=== PATIENT | female | born 1950 | race Caucasian/White ===

== ENCOUNTER → 2017-10-14 | Outpatient (CLI) | payer MEDICARE | END | disposition home or self-care (01) | LOC: RAH 15:52 | PROVIDERS: ATTEND Internal Medicine | DX: M25.552 Pain in left hip (principal) | CPT/HCPCS: 73502 ==

== ENCOUNTER → 2018-08-24 | Outpatient (CLI) | payer MEDICARE | END | disposition home or self-care (01) | LOC: RAH 15:49 | PROVIDERS: ATTEND Physical Medicine & Rehabilitation | DX: M17.11 Unilateral primary osteoarthritis, right knee (principal) | CPT/HCPCS: 73560 ==

== ENCOUNTER → 2018-11-21 | Outpatient (CLI) | payer MEDICARE | END | disposition home or self-care (01) | LOC: RAH 13:01 | PROVIDERS: ATTEND Internal Medicine | DX: N60.01 Solitary cyst of right breast (principal) | CPT/HCPCS: 76641; 77066 ==

== ENCOUNTER → 2019-11-01 | Outpatient (CLI) | payer MEDICARE | END | disposition home or self-care (01) | LOC: RAH 14:15 | PROVIDERS: ATTEND Internal Medicine | DX: N60.01 Solitary cyst of right breast (principal); R92.8 Other abnormal and inconclusive findings on diagnostic imaging of breast | CPT/HCPCS: 76641; 77066 ==

== ENCOUNTER → 2020-10-02 | Outpatient (CLI) | payer MEDICARE | END | disposition home or self-care (01) | LOC: RAH 15:34 | PROVIDERS: ATTEND Physical Medicine & Rehabilitation | DX: M51.16 Intervertebral disc disorders with radiculopathy, lumbar region (principal); M48.061 Spinal stenosis, lumbar region without neurogenic claudication; M85.88 Other specified disorders of bone density and structure, other site | CPT/HCPCS: 72110 ==

== ENCOUNTER → 2020-12-18 | Outpatient (CLI) | payer MEDICARE | END | disposition home or self-care (01) | LOC: RAH 13:19 | PROVIDERS: ATTEND Physical Medicine & Rehabilitation | DX: M51.16 Intervertebral disc disorders with radiculopathy, lumbar region (principal); M48.061 Spinal stenosis, lumbar region without neurogenic claudication; M51.35 Other intervertebral disc degeneration, thoracolumbar region; M71.38 Other bursal cyst, other site | CPT/HCPCS: 72148 ==

== ENCOUNTER → 2021-06-22 | Outpatient (CLI) | payer MEDICARE | END | disposition home or self-care (01) | LOC: RAH 13:18 | PROVIDERS: ATTEND Physical Medicine & Rehabilitation | DX: S72.491A Other fracture of lower end of right femur, initial encounter for closed fracture (principal); S82.291A Other fracture of shaft of right tibia, initial encounter for closed fracture; S83.511A Sprain of anterior cruciate ligament of right knee, initial encounter; S83.521A Sprain of posterior cruciate ligament of right knee, initial encounter; M25.461 Effusion, right knee; X58.XXXA Exposure to other specified factors, initial encounter; Y93.89 Activity, other specified; Y92.89 Other specified places as the place of occurrence of the external cause; Y99.8 Other external cause status | CPT/HCPCS: 73721 ==

== ENCOUNTER → 2022-01-06 | Outpatient (CLI) | payer MEDICARE | END | disposition home or self-care (01) | LOC: RAH 14:08 | PROVIDERS: ATTEND Internal Medicine | DX: N60.01 Solitary cyst of right breast (principal); E66.3 Overweight; Z68.26 Body mass index [BMI] 26.0-26.9, adult; M47.815 Spondylosis without myelopathy or radiculopathy, thoracolumbar region | CPT/HCPCS: 71046; 76641; 77066 ==

== ENCOUNTER → 2023-02-09 | Outpatient (CLI) | payer MEDICARE | END | disposition home or self-care (01) | LOC: RAH 14:20 | PROVIDERS: ATTEND Internal Medicine | DX: N60.01 Solitary cyst of right breast (principal) | CPT/HCPCS: 77066 ==

== ENCOUNTER → 2023-10-14 | Outpatient (CLI) | payer MEDICARE, OTHER ==
[2023-10-14] MEDS: REGADENOSON 0.4 MG/5 ML PF SYG IVP SCH (12:17)
== END | disposition home or self-care (01) ==
LOC: RAH 10:00
PROVIDERS: ATTEND Internal Medicine Cardiovascular Disease
DX: R07.9 Chest pain, unspecified (principal)
CPT/HCPCS: 78452; 96374; 93017; J2785; A9500 ×2

== ENCOUNTER 2023-12-10 10:59 | Emergency (ER) | payer MEDICARE, OTHER ==
[~2023-12-10] VITALS: Ht 157.5 cm; Wt 58.1 kg
[2023-12-10] MEDS: TRIAMCINOLONE ACETONIDE 40 MG/ML 1ML VIAL SQ ONE (12:30)
[2023-12-10] MEDS: ORPHENADRINE 60MG/2ML IM ONE (12:46)
[2023-12-10] MEDS: KETOROLAC 15MG/ML VIAL (15MG/ML) IM ONE (12:46)
[2023-12-10] MEDS ORDERED: ACET-66 PO (13:35)
[2023-12-10 14:16] VITALS: BP 155/71; PULSE 69; RESP 14; O2SAT 95
== END 2023-12-10 14:17 | disposition home or self-care (01) ==
LOC: EDH 10:59
DX: G89.29 Other chronic pain (principal); M54.50 Low back pain, unspecified; J45.909 Unspecified asthma, uncomplicated; F32.A Depression, unspecified; F41.9 Anxiety disorder, unspecified; Z88.0 Allergy status to penicillin; Z88.8 Allergy status to other drugs, medicaments and biological substances; Z90.710 Acquired absence of both cervix and uterus
CPT/HCPCS: 99284; 72100; 96372 ×3; J3301; J1885; J2360

== ENCOUNTER → 2024-11-28 | Outpatient (CLI) | payer MEDICARE ==
[~2024-11-28] MED LIST: ACET-66 PO
== END | disposition home or self-care (01) ==
LOC: RAH 14:10
PROVIDERS: ATTEND Family Medicine
DX: Z12.31 Encounter for screening mammogram for malignant neoplasm of breast (principal)
CPT/HCPCS: 77067

== ENCOUNTER 2024-12-21 16:54 | Inpatient (IN) | payer MEDICARE ==
[~2024-12-21] VITALS: Ht 154.9 cm; Wt 73.8 kg
[~2024-12-21 16:54] MED LIST changes: -ACET-66 PO; +CALC-911 PO; +CYCL-309 PO; +ERGO500093 PO; +ESTR0.5T2 PO; +GABA-529 PO; +LACT1CAP80 PO; +LORA0.5T83 PO; +METH8TAB6 PO; +MULT-1203 PO; +PRAV40TA62 PO; +PROP20TA7 PO; +SERT-440 PO; +TOLT4CAP27 PO; +[UNRECOGNIZED DRUG - CODE] PO
--- NOTE | 2024-12-21 17:04 | ERN ---
ED Note History of Present Illness Stated Complaint: VOMITING BLOOD X1, WEAKNESS, DIZZINESS Chief Complaint: Hematemesis/Vomiting Blood Time Seen by MD: 16:57 Dictation: PATIENT IS A 74-YEAR-OLD FEMALE COME TO THE EMERGENCY ROOM VIA EMS WITH COMPLAINTS OF COFFEE-GROUNDS EMESIS AND THEN HAD A SYNCOPAL EPISODE AFTER SHE VOMITED. SHE IS CURRENTLY ALERT AND ORIENTED X4 SPEECH IS CLEAR. SHE DOES HAVE DRIED COFFEE-GROUND COLORED EMESIS ON HER CHIN. SHE DENIES ANY ABDOMINAL PAIN. NO CHEST PAIN NO BACK PAIN. PER EMS SHE HAD A LOW BLOOD PRESSURE OF 75/40 ON SITE WAS GIVEN 250 OF NORMAL SALINE, NOW Allergies: Coded Allergies: amoxicillin (Unverified Allergy, Mild, rash, 10/14/23) neomycin (Unverified Allergy, Mild, rash, 10/14/23) thimerosal (Unverified Allergy, Mild, rash, 10/14/23) bacitracin (Unverified Allergy, Unknown, rash, 10/14/23) Uncoded Allergies: NEOSPORINS (Allergy, Mild, rash, 10/14/23) POLYSPORINS (Allergy, Mild, rash, 10/14/23) Home Meds Reported Medications Gabapentin (Gabapentin) 100 Mg Capsule, 21 CAP PO DAILY for pain for 30 Days, #90 CAP 0 Refills 12/17/24 Lactobacillus Combo No.10 (Probiotic) 20 Billion Cell Capsule, 2 TAB PO DAILY for 30 Days, #30 TAB 0 Refills 12/17/24 Multivitamin (Multi Vitamin Daily) 1 Each Tablet, 1 TAB PO DAILY for 30 Days, #3 0 TAB 0 Refills 12/17/24 Calcium Carbonate/Vitamin D3 (Calcium 1,000 + D3 Caplet) 1,000 Mg-20 Tablet, 1 TAB PO DAILY for 30 Days, #30 TAB 0 Refills 12/17/24 Folic Acid (Folic Acid) 480 Mcg Capsule, 480 MCG PO DAILY, CAP 12/17/24 Estradiol (Estradiol) 0.5 Mg Tablet, 1 TAB PO DAILY for 30 Days, #30 TAB 0 Refills 12/17/24 Propranolol HCl (Propranolol HCl) 20 Mg Tablet, 20 MG PO DAILY, TAB 12/17/24 Methylprednisolone (Methylprednisolone) 8 Mg Tablet, 1 TAB PO DAILY for 5 Days, #5 TAB 0 Refills 12/17/24 Lorazepam (Ativan) 0.5 Mg Tablet, 0.5 MG PO TID PRN for ANXIETY, TAB 12/17/24 Tolterodine Tartrate (Tolterodine Tartrate ER) 4 Mg Cap.er.24h, 1 CAP PO DAILY for 30 Days, #30 CAP 0 Refills 12/17/24 Cyclobenzaprine HCl (Cyclobenzaprine HCl) 10 Mg Tablet, 1 TAB PO TID for muscle spasms for 10 Days, #30 TAB 0 Refills 12/17/24 Ergocalciferol (Vitamin D2) (Vitamin D2) 1,250 Mcg (18248 Unit) Capsule, 1.25 CAP PO QWEEK for 28 Days, #4 CAP 0 Refills 12/17/24 Pravastatin Sodium (Pravastatin Sodium) 40 Mg Tablet, 1 TAB PO HS for 30 Days, #30 TAB 0 Refills 12/17/24 Sertraline HCl (Sertraline HCl) 100 Mg Tablet, 100 MG PO BID, TAB 12/17/24 Discontinued Scripts Acetaminophen (Acetaminophen) 500 Mg Tablet, 500 MG PO TIDP PRN for PAIN, #15 TAB Prov:CRISTOBAL YAO 12/10/23 Past Medical History Past Medical History: Arthritis, Asthma Additional Past Medical Hx: BACKPAIN Surgical History: Hysterectomy, Tonsillectomy History: Not Applicable RN Note Reviewed/Agreed w/PFSH: Yes Review of System Dictation CONSTITUTIONAL: NEGATIVE EXCEPT FOR HPI HEAD/FACE: NEGATIVE EXCEPT FOR HPI EENT: NEGATIVE EXCEPT FOR HPI RESPIRATORY: NEGATIVE EXCEPT FOR HPI GASTROINTESTINAL/ABDOMINAL: NEGATIVE EXCEPT FOR HPI COFFEE-GROUNDS EMESIS GENITOURINARY: NEGATIVE EXCEPT FOR HPI MUSCULOSKELETAL: NEGATIVE EXCEPT FOR HPI INTEGUMENTARY: NEGATIVE EXCEPT FOR HPI NEUROLOGICAL/PSYCH: NEGATIVE EXCEPT FOR HPI NEAR-SYNCOPE HEMATOLOGIC/LYMPHATIC: NEGATIVE EXCEPT FOR HPI ALL SYSTEMS NEGATIVE, EXCEPT NOTED ABOVE. 13 POINT REVIEW OF SYSTEMS ASSESSED AND ALL NEGATIVE EXCEPT FOR ABOVE. Initial Vital Sign VS Vital Signs Date Time Temp Pulse Resp B/P (MAP) Pulse Ox O2 Delivery O2 Flow Rate FiO2 12/21/24 16:57 99.0 111 20 143/69 99 Room Air 12/21/24 17:29 0 21 Physical Exam Dictation VITAL SIGNS REVIEWED GENERAL APPEARANCE: ALERT, ORIENTED X 3, NO ACUTE DISTRESS, WELL DEVELOPED, NOURISHED. HEAD AND FACE: NON-TRAUMATIC. EYES: PERRL, PINK CONJUNCTIVAS, EYELID NO TRAUMA, ANTERIOR CHAMBER WITH ARCUS SENILIS. EARS: PINNAS INTACT AND NO SIGNS OF TRAUMA OR ERYTHEMA EAR CANALS CLEAR AND NO DISCHARGE TM NO ERYTHEMA NOSE: NO DISCHARGE, NO BLEEDING. OROPHARYNX: MOUTH NORMAL, MUCOUS MEMBRANES PALE PHARYNX CLEAR,NO ERYTHEMA, TONSILS NO EXUDATES, NO ABSCESSES NOTED, MUCOUS MEMBRANE MOIST NECK: SUPPLE, NON-TENDER, NO THYROMEGALY, NO MASSES, NO JVD, NO BRUITS BREAST:DEFERRED CHEST:NO TENDERNESS, NO CREPITUS, NO PARADOXICAL MOVEMENT, NO RETRACTIONS LUNGS:CLEAR, WELL-VENTILATED, SYMMETRIC, NO RALES, NO WHEEZING, NO RHONCHI, NO STRIDOR, GOOD BREATH SOUNDS BILATERALLY HEART: REGULAR RATE, REGULAR RHYTHM, NO MURMUR, NO GALLOPS VASCULAR: NO PERIPHERAL EDEMA, ABDOMEN: SOFT, POSITIVE BOWEL SOUNDS, NONDISTENDED, NO GUARDING, NONTENDER, NO REBOUND, NO MASSES NO HEPATOMEGALY, NO SPLENOMEGALY, NO ENGLE'S SIGN, NO HERNIAS. FOCAL PAIN RECTAL: DEFERRED GENITAL: DEFERRED NEUROLOGICAL: NORMAL SPEECH, MOTOR FUNCTION INTACT, SENSORY FUNCTION INTACT GE NERALIZED BODY WEAKNESS BILATERALLY MUSCULOSKELETAL: NECK NONTENDER, FULL RANGE OF MOTION, BACK NONTENDER, FULL RANGE OF MOTION, EXTREMITIES: NONTENDER, FULL RANGE OF MOTION SKIN: COLOR PINK, DRY, NO TURGOR, NO RASH, NO LACERATIONS, NO ABRASIONS, NO CONTUSIONS. LYMPHATIC: DEFERRED Results (Laboratory/Radiology) Laboratory/Radiology Laboratory Tests Test 12/21/24 17:34 White Blood Count 10.7 K/uL (4.8-10.8) Red Blood Count 2.23 MIL/uL (4.00-5.50) L Hemoglobin 6.7 g/dL (12.0-16.0) *L Hematocrit 20.7 % (36-48) *L Mean Corpuscular Volume 92.8 fL (79-99) Mean Corpuscular Hemoglobin 30.0 pg (27.0-33.0) Mean Corpuscular Hemoglobin Concent 32.4 g/dL (32.0-36.0) Red Cell Distribution Width 17.4 % (11.0-15.5) H Platelet Count 374 K/uL (130-400) Mean Platelet Volume 8.9 fL (7.5-10.5) Immature Granulocyte % (Auto) 0.9 % (0-1) Neutrophils (%) (Auto) 87.4 % (40.0-77.0) H Lymphocytes (%) (Auto) 5.5 % (21.0-51.0) L Monocytes (%) (Auto) 5.0 % (3.0-13.0) Eosinophils (%) (Auto) 0.9 % (0.0-8.0) Basophils (%) (Auto) 0.3 % (0.0-5.0) Neutrophils # (Auto) 9.4 K/uL (1.8-7.7) H Lymphocytes # (Auto) 0.6 K/uL (1.0-4.8) L Monocytes # (Auto) 0.5 K/uL (0.1-1.0) Eosinophils # (Auto) 0.10 K/uL (0.00-0.70) Basophils # (Auto) 0.03 K/uL (0.00-0.20) Absolute Immature Granulocyte (auto 0.10 K/uL (0-1) Nucleated Red Blood Cells 0.0 % (0.0-0.19) Sodium Level 139 mmol/L (136-145) Potassium Level 2.9 mmol/L (3.5-5.1) *L Chloride Level 103 mmol/L (101-111) Carbon Dioxide Level 24 mmol/L (21-32) Blood Urea Nitrogen 34 mg/dL (7-18) H Creatinine 0.6 mg/dL (0.5-1.0) Glomerular Filtration Rate Calc 94 mL/min (>90) Random Glucose 126 mg/dL (70-105) H Total Calcium 8.1 mg/dL (8.5-10.1) L Troponin I High Sensitivity 166 ng/L (4-50) *H Lipase 26 U/L (16-77) Labs Reviewed?: Yes EKG Comment: SINUS RHYTHM WITH A BUNDLE BRANCH BLOCK HEART RATE 75\MEDICAL RECORDS REVIEWED PATIENT HAS A LEFT BUNDLE BRANCH BLOCK 08/20/2024 NO CHANGE ED Course ED Course Orders Procedure Category Date Status Time Type And Screen BBK 12/21/24 In Process 17:01 Cbc With Differential LAB 12/21/24 Complete 17:01 Troponin I High LAB 12/21/24 Complete Sensitivity 17:01 Urinalysis Profile LAB 12/21/24 Logged 17:01 Occult Blood Stool LAB 12/21/24 Logged Single Only 17:01 12 Lead Ekg Tracing- EKG 12/21/24 Logged Technical 17:01 0.9%Nacl 1000ml (Ns PHA 12/21/24 Complete 1000ml) 17:30 Pantoprazole 40mg Inj PHA 12/21/24 Complete (Protonix 40mg Inj 17:30 Lipase LAB 12/21/24 Complete 17:01 Basic Metabolic Panel LAB 12/21/24 Complete 17:01 Rbc - Preoperative BBK 12/21/24 In Process Order 17:26 Rbc-Active Bleeding BBK 12/21/24 In Process 18:55 *Nursing CPOE 12/21/24 Transmitted Communication: 18:55 Octreotide Acetate PHA 12/21/24 Complete (Sandostatin) 19:00 Octreotide Acetate PHA 12/21/24 Complete (Sandostatin) 19:00 Octreotide Acetate PHA 12/21/24 In Process (Sandostatin) 19:30 Edm Admit Bridge Order ADM 12/21/24 Transmitted 19:12 Current Medications Medications (Trade) Dose Ordered Sig/Leighton Route PRN Reason Start Time Stop Time Status Last Admin Dose Admin Octreotide Acetate 1000 mcg/ Dextrose 200 ml @ 10 mls/hr AD IV 12/21/24 19:00 12/21/24 19:10 DC Octreotide Acetate 1250 mcg/ Sodium Chloride 250 ml @ 0 mls/hr PROTOCOL IV 12/21/24 19:30 01/20/25 19:29 Octreotide Acetate (SandoSTATIN) 50 mcg ONCE ONCE IVP 12/21/24 19:00 12/21/24 19:08 DC Pantoprazole Sodium (PROTonix 40MG INJ) 40 mg ONCE ONCE IVP 12/21/24 17:30 12/21/24 17:31 DC 12/21/24 17:21 Sodium Chloride 1,000 ml @ 0 mls/hr ONCE ONCE IV 12/21/24 17:30 12/21/24 17:31 DC 12/21/24 17:21 Vital Signs Date Time Temp Pulse Resp B/P (MAP) Pulse Ox O2 Delivery O2 Flow Rate FiO2 12/21/24 18:25 99.0 107 16 123/39 99 Room Air* 0 21 12/21/24 17:29 99.0 105 16 117/57 98 Room Air* 0 21 12/21/24 16:57 99.0 111 20 143/69 99 Room Air 1910/SPOKE WITH PEE CHO HOSPITALIST REVIEWED LABS EKG ETC. SHE AGREED TO ADMIT. HEART Score Response (Comments) Value EKG: Repolarization changes 1 Age: > 65yrs (+2) 2 Risk Factors: 3+ risk factors (+2) 2 Initial Troponin: >3x Normal Limit (+2) 2 Total 7 Medical Decision Making MDM MDM: DIFFERENTIAL DIAGNOSIS: GI BLEED/ANEMIA/ELECTROLYTE IMBALANCE/DEHYDRATION RATIONALE: TESTS CONSIDERED AND ORDERED SECONDARY TO SHARED DECISION MAKING INCLUDE: LABS, ECG AND RADIOLOGY PREVIOUS OUTSIDE RECORDS REVIEWED: OLD ER VISITS. RISK OF COMPLICATION AND/OR MORBIDITY OR MORTALITY OF PATIENT MANAGEMENT: NONE MEDICATIONS-PER MEDICATION RECONCILIATION NEED FOR HOSPITALIZATION: PATIENT DOES MEET CRITERIA FOR HOSPITALIZATION. MANAGEMENT OF BLEEDING GI CONSULTATION NEED FOR EMERGENCY MAJOR/MINOR SURGERY: NO THERE ARE NO SOCIAL CONCERNS WITH THIS PATIENT. PRESCRIPTION DRUG MANAGEMENT PRESCRIPTIONS WILL INCLUDE SYMPTOMATIC CARE PATIENT'S PRIOR EXTERNAL MEDICAL RECORDS FROM OTHER ER VISITS WERE REVIEWED BY ME INDICATED. PRIOR TESTING AND RESULTS FROM PREVIOUS VISITS WERE REVIEWED. PRIOR TESTS WERE TAKEN INTO ACCOUNT WITH MEDICAL DECISION MAKING AND RESOURCE UTILIZATION, INDEPENDENT HISTORIAN/HISTORIANS WERE USED TO OBTAIN COMPLETE MEDICAL HISTORY. I INDEPENDENTLY INTERPRETED THE TEST THAT WERE PERFORMED, RESULTS WERE REVIEWED BY ME AND CONSIDERED FINDINGS ON RADIOLOGY IF ORDERED. MEDICAL MANAGEMENT AND EXAMINATION INTERPRETATION DISCUSSIONS WERE HAD BY ME WITH OTHER QUALIFIED HEALTHCARE PROFESSIONALS INDICATED FOR THE PATIENT'S CARE. DX & DISP Disposition: Inpatient Decision to Admit Time: 19:16 Departure Impression: Primary Impression: Upper GI bleed Additional Impressions: Severe anemia, Hypokalemia, Dehydration, Elevated troponin level not due myocardial infarction, Hypocalcemia, Hyperglycemia Condition: Stable Referrals: TAMMIE MCLAUGHLIN MD (PCP) Time of Disposition: 19:16 I have reviewed the case, and I agree with, Diagnosis and Plan RAIZA MORRELL NP Dec 21, 2024 17:04
[2024-12-21] MEDS: 0.9%NACL 1000ML 1,000 ML IV ONE (17:21)
[2024-12-21 17:40] LABS: IMMATURE GRANULOCYTE ABSOLUTE 0.10 K/uL (0-1); NUCLEATED RED BLOOD CELLS 0.0 % (0.0-0.19); PLATELET COUNT (AUTO) 374 K/uL (130-400); RED BLOOD CELL COUNT(AUTO) 2.23 MIL/uL (4.00-5.50); RED CELL DISTRIBUTION WIDTH 17.4 % (11.0-15.5); WHITE BLOOD COUNT (AUTO) 10.7 K/uL (4.8-10.8)
[2024-12-21 18:02] LABS: CREATININE 0.6 mg/dL (0.5-1.0); GLOMERULAR FILTR. RATE CALC 94.0 mL/min (>90); GLUCOSE,RANDOM 126.0 mg/dL (70-105); SODIUM SERUM 139.0 mmol/L (136-145); UREA NITROGEN, BLOOD 34.0 mg/dL (7-18)
--- NOTE | 2024-12-21 19:27 | HP ---
[facility] HISTORY AND PHYSICAL Date of Service: Dec 21, 2024 Time of Service: 19:27 Attending/supervising physicians: Dr. Heidy Emanuel and Dr. Sophie Emanuel HISTORY OF PRESENT ILLNESS: Ms. Feldman is a 74 year old female with history of recent GI bleed, multiple myeloma, diabetes mellitus, hypertension, fibromyalgia, arthritis, asthma, chronic back pain, history of UTIs, history of repeated falls, history of protein calorie malnutrition who presented [place] [facility] [place] coffee-ground emesis and then had a syncopal episode after she vomited. Per EMS she had a low blood pressure or 75/40 on site was given 250 of normal saline. She presented to the ED alert and oriented X4 with a clear speech. On arrival the patient was noted to have dried coffee-ground colored emesis on her chin. She denied any abdominal pain, chest pain, or back pain. V/S on ED arrival: 143/69, HR 111 bpm, RR 20 bpm, 99% RA, 99.0F. Labs: Hgb 6.7, Hct 20.7, Rbc 2.23, K 2.9, Troponin 166, BUN 34, Random Glucose 126, Calcium 8.1. Per chart review: CT abdomen and pelvis on 12/17/2024: 1. Thickening of the gastric kaiser predominantly in the body and antrum, suggesting gastritis. 2. Moderate-sized hiatal hernia containing fundus of the stomach. 3. Large amount of stool in the colon. 4. Consider tagged red blood cell scan for evaluation of GI bleed. Echo: LVEF is 55 to 60%. Stage I diastolic dysfunction. RVSP is 39 mmHg. The patient was admitted on 12/17/2024 and was discharged on 12/20/2024 with a diagnosis of GI bleed and general body weakness. During that visit the patient underwent EGD. EGD findings: medium hiatal hernia. Large cratered ulcers in lesser curve of proximal gastric body and in pre-pyloric antrum, both healing well. Patient at high risk for re-bleed. Results given to patient and recommendations to repeat EGD in 5-7 days. The patient was discharged planning for SNF physical deconditioning. Today, I assessed the patient at bedside in room# 307. No family at bedside. The patient was receiving the 1st unit of PRBCs. The patient appeared pale, comfortable, breathing was even, unlabored, in no distress. She reported general body weakness but denied any abdominal pain, chest pain, shortness of breath, any other pain, problem or concern. She reports that she saw a GI doctor as the patient long time ago, but the does not remember the name of the DrAxel nor the reason for the visit. I informed the patient of labs, diagnostics, and plan of care. She verbalized understanding and is in agreement with the plan. Plan and assessment are listed below. REVIEW OF SYSTEMS 12-point ROS reviewed with the patient. All pertinent positives mentioned above. Otherwise negative, noncontributory, non-pertinent. PAST MEDICAL HISTORY: See above PAST SURGICAL HISTORY: Hysterectomy, Tonsillectomy PAST SOCIAL HISTORY: Negative: alcohol, tobacco, and illicit drugs FAMILY HISTORY: Noncontributory Coded Allergies: amoxicillin (Unverified Allergy, Mild, rash, 10/14/23) neomycin (Unverified Allergy, Mild, rash, 10/14/23) thimerosal (Unverified Allergy, Mild, rash, 10/14/23) bacitracin (Unverified Allergy, Unknown, rash, 10/14/23) Uncoded Allergies: NEOSPORINS (Allergy, Mild, rash, 10/14/23) POLYSPORINS (Allergy, Mild, rash, 10/14/23) PHYSICAL EXAM GENERAL APPEARANCE: The patient is awake, alert, and oriented, in no acute cardiopulmonary distress. Appears pale. NEUROLOGICAL: Cranial nerves II-XII grossly intact. Motor is 5/5 in bilateral upper and lower extremities proximal to distal. No sensory deficits. HEENT: Face is symmetric. Pupils are equal and reactive. Extraocular movements are intact. NECK: Supple. No JVD. No thyromegaly. No submental, submandibular, pre- /postauricular, occipital or supraclavicular lymphadenopathy. CHEST: Normal chest expansion. No Telemetry. LUNGS: Absence of any rales, rhonchi or any wheezing. CARDIOVASCULAR: Regular. S1 and S2 normal. No appreciable rubs, murmurs or gallops. ABDOMEN: Soft, nontender, and nondistended. There is no rebound, voluntary guarding, or rigidity. : Deferred. No Mcnair. EXTREMITIES: Non-edematous and not cyanotic. No clubbing. Good capillary refill. SKIN: No skin breakdown. Vital Sign (Last 24 Hours) 12/21/24 19:15 Temp 98.8 Pulse 101 Resp 16 B/P (MAP) 134/42 Pulse Ox 99 O2 Delivery Room Air* O2 Flow Rate 0 FiO2 21 LABS: Laboratory: Test 12/21/24 17:34 Range/Units White Blood Count 10.7 4.8-10.8 K/uL Red Blood Count 2.23 L 4.00-5.50 MIL/uL Hemoglobin 6.7 *L 12.0-16.0 g/dL Hematocrit 20.7 *L 36-48 % Mean Corpuscular Volume 92.8 79-99 fL Mean Corpuscular Hemoglobin 30.0 27.0-33.0 pg Mean Corpuscular Hemoglobin Concent 32.4 32.0-36.0 g/dL Red Cell Distribution Width 17.4 H 11.0-15.5 % Platelet Count 374 130-400 K/uL Mean Platelet Volume 8.9 7.5-10.5 fL Immature Granulocyte % (Auto) 0.9 0-1 % Neutrophils (%) (Auto) 87.4 H 40.0-77.0 % Lymphocytes (%) (Auto) 5.5 L 21.0-51.0 % Monocytes (%) (Auto) 5.0 3.0-13.0 % Eosinophils (%) (Auto) 0.9 0.0-8.0 % Basophils (%) (Auto) 0.3 0.0-5.0 % Neutrophils # (Auto) 9.4 H 1.8-7.7 K/uL Lymphocytes # (Auto) 0.6 L 1.0-4.8 K/uL Monocytes # (Auto) 0.5 0.1-1.0 K/uL Eosinophils # (Auto) 0.10 0.00-0.70 K/uL Basophils # (Auto) 0.03 0.00-0.20 K/uL Absolute Immature Granulocyte (auto 0.10 0-1 K/uL Nucleated Red Blood Cells 0.0 0.0-0.19 % Sodium Level 139 136-145 mmol/L Potassium Level 2.9 *L 3.5-5.1 mmol/L Chloride Level 103 101-111 mmol/L Carbon Dioxide Level 24 21-32 mmol/L Blood Urea Nitrogen 34 H 7-18 mg/dL Creatinine 0.6 0.5-1.0 mg/dL Glomerular Filtration Rate Calc 94 >90 mL/min Random Glucose 126 H 70-105 mg/dL Total Calcium 8.1 L 8.5-10.1 mg/dL Troponin I High Sensitivity 166 *H 4-50 ng/L Lipase 26 16-77 U/L Current Medications Medications (Trade) Dose Ordered Sig/Leighton Route PRN Reason Start Time Stop Time Status Last Admin Dose Admin Acetaminophen (TYLenol 325MG TAB) 650 mg Q6H PRN PO FEVER/MILD PAIN LEVEL 1-3 12/21/24 19:30 01/20/25 19:29 UNV Acetaminophen (TYLenol 650MG SUPPOSITORY) 650 mg Q6H PRN RC FEVER / MILD PAIN 1-3 IF NPO 12/21/24 19:30 01/20/25 19:29 UNV Insulin Human Regular (humuLIN R 100 UNIT/ML 3ML) INSULIN SLIDING SCAL... ACHS SQ 12/21/24 21:00 01/20/25 20:59 UNV Octreotide Acetate 1000 mcg/ Dextrose 200 ml @ 10 mls/hr AD IV 12/21/24 19:00 12/21/24 19:10 DC Octreotide Acetate 1250 mcg/ Sodium Chloride 250 ml @ 0 mls/hr PROTOCOL IV 12/21/24 19:30 01/20/25 19:29 Ondansetron HCl (zoFRAN 4MG INJ) 4 mg Q6H PRN IVP NAUSEA/VOMITING 12/21/24 19:30 01/20/25 19:29 UNV Temazepam (restORIL 15 MG CAP) 15 mg HS PRN PO INSOMNIA/SLEEP 12/21/24 19:30 01/20/25 19:29 UNV DIAGNOSTICS / RADIOLOGY: [ ] ASSESSMENT: Acute GI bleed, recurrent, POA Severe anemia s/p acute blood loss requiring two units of PRBCs. Large cratered ulcers in lesser curve of proximal gastric body and in pre- pyloric antrum, both healing well, per EGD on 12/19/2024 Elevated troponin, POA, rule out ACS Acute dehydration/ketonuria, POA Severe hypokalemia, POA Tachycardia, POA Diabetes mellitus with hyperglycemia LVEF is 55 to 60%. Stage I diastolic dysfunction. RVSP is 39 mmHg, per echo on 12/17/2024 Chronic problem list: Recent GI bleed, multiple myeloma, diabetes mellitus, hyp ertension, fibromyalgia, arthritis, asthma, chronic back pain, history of UTIs, history of repeated falls, history of protein calorie malnutrition PLAN: Admit to medical floor with telemetry monitoring. Obtain stool for occult blood. Continue Protonix 40 mg IV b.i.d.. Continue Sandostatin Sandostatin drip. Monitor for bleed and CBC q.6 hours. Transfuse1 unit of PRBCs p.r.n. hemoglobin less than seven. NPO for now. Consult GI in a.m.. Hematology in a.m. IV gentle hydration. Trend troponins q.6 hours x2. Collect UA. Case management consult for placement back at SNF. P.r.n. medications for: Pain management, fever, nausea, vomiting. Glucometer checks a.c. and HS with insulin regular sliding scale per protocol. Blood pressure checks every 4 hours and as needed. Reconcile home medications once available. Monitor renal and liver function. Monitor electrolytes and treat accordingly. A.m. labs. GI and DVT prophylaxis. Avoid blood thinners due to recurrent GI bleed. Further plan/orders per hospitalization course. ADVANCED CARE PLANNING 1. Which of the following were discussed? Hospice Care - No Therapeutic options - Yes Advance Directives - Yes Other discussions - 2. Discussed with who? The patient 3. Voluntary nature of this service was explained to the patient? Yes 4. Amount of time spent - __ over 35 minutes 5. Reviewed by Physician? (if this service was performed by NPP) Yes ATTESTATION BY PHYSICIAN I have seen and examined the patient. I reviewed the documentation, medical decision making, and treatment plan as noted by the resident provider above. I agree with the findings and plan of care. PRIYA MITCHELL [facility] Dec 21, 2024 19:27
[2024-12-21] MEDS: OCTREOTIDE 1,250 MCG /NS 250ML (DRIP) IV SCH (20:03)
[2024-12-21 23:00] VITALS: BP 143/76; PULSE 107; RESP 20; TEMP 98.5
[2024-12-22] VITALS (7 sets, daily range): BP systolic 120–144; BP diastolic 44–69; PULSE 82–94; RESP 17–20; TEMP 98–98.8; O2SAT 95–100
[2024-12-22] MEDS ORDERED: PoTASSium chloRIDE 20MEQ ER 20 MEQ ERTAB PO PRN
[2024-12-22 00:26] LABS: APPEARANCE,URINE CLEAR (CLEAR); GLUCOSE, URINE (UA) NEGATIVE (NEGATIVE); LEUKOCYTE ESTERASE ,URINE NEGATIVE Leu/uL (NEGATIVE); NITRATE,URINE NEGATIVE (NEGATIVE); OCCULT BLOOD,URINE NEGATIVE (NEGATIVE); SQUAMOUS EPITHELIAL CELL,UR MOD /HPF (0-2)
[2024-12-22] MEDS: 0.9%NACL 1000ML 1,000 ML IV SCH (03:52)
[2024-12-22 08:54] LABS: NUCLEATED RED BLOOD CELLS 0.0 % (0.0-0.19); PLATELET COUNT (AUTO) 333.0 K/uL (130-400); RED BLOOD CELL COUNT(AUTO) 2.94 MIL/uL (4.00-5.50); RED CELL DISTRIBUTION WIDTH 16.4 % (11.0-15.5); WHITE BLOOD COUNT (AUTO) 6.8 K/uL (4.8-10.8)
[2024-12-22 09:18] LABS: ASPARTATE AMINOTRANSFERASE 36.0 U/L (10-37); CREATININE 0.4 mg/dL (0.5-1.0); GLOMERULAR FILTR. RATE CALC 103.0 mL/min (>90); GLUCOSE,RANDOM 115.0 mg/dL (70-105); PHOSPHORUS 1.8 mg/dL (2.5-4.9); SODIUM SERUM 138.0 mmol/L (136-145); TOTAL PROTEIN, SERUM 6.3 g/dL (6.0-8.3); UREA NITROGEN, BLOOD 17.0 mg/dL (7-18)
--- NOTE | 2024-12-22 10:05 | NUR ---
ENTERED PATIENTS ROOM TO ANSWER CALL LIGHT. PATIENT REQUESTED TO SPEAK WITH ME. PATIENT BEGAN STATING, "LAST NIGHT, THEY TOOK ME TO THE SHOWER AND THEY MADE ME STAND NEXT TO A BAR. THEY MADE ME SHOWER AND I WANTED A TOWEL FOR THE FLOOR BUT THEY TOLD ME NO. THEY MADE ME STAND THERE AND I FELT WEAK". WHEN ASKED IF THE PATIENT WAS REFERRING TO THE [facility] OR [facility] THE PATIENT STATED, "WELL YOU SEE, YESTERDAY I WAS AT [facility]". WHEN ASKED TO ELABORATE FURTHER, PATIENT STATED, "I JUST DON'T UNDERSTAND WHY PEOPLE HERE WILL DENY YOU A SHOWER. THEY TOLD ME LAST NIGHT THAT THEY WOULD NEED A TAXI TO TAKE ME TO A SHOWER IN THE OTHER BUILDING". CONFUSION REPORTED TO DR. ROMEO. ORDERS RECEIVED AND ENTERED.
--- NOTE | 2024-12-22 10:22 | EKG ---
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
--- NOTE | 2024-12-22 10:41 | PN ---
[facility] PROGRESS NOTE Date of Service: Dec 22, 2024 Time of Service: 10:29 SUBJECTIVE: [ 74 year old female with history of recent GI bleed, multiple myeloma, diabetes mellitus, hypertension, fibromyalgia, arthritis, asthma, chronic back pain, history of UTIs, history of repeated falls, history of protein calorie malnutrition who [place] [facility] coffee-ground emesis and then had a syncopal episode after she vomited. Per EMS she had a low blood pressure or 75/40 on site was given 250 of normal saline. She presented to the ED alert and oriented X4 with a clear speech. On arrival the patient was noted to have dried coffee-ground colored emesis on her chin. She denied any abdominal pain, chest pain, or back pain. V/S on ED arrival: 143/69, HR 111 bpm, RR 20 bpm, 99% RA, 99.0F. Labs: Hgb 6.7, Hct 20.7, Rbc 2.23, K 2.9, Troponin 166, BUN 34, Random Glucose 126, Calcium 8.1. The patient was admitted on 12/17/2024 and was discharged on 12/20/2024 with a diagnosis of GI bleed and general body weakness. During that visit the patient underwent EGD. EGD findings: medium hiatal hernia. Large cratered ulcers in lesser curve of proximal gastric body and in pre-pyloric antrum, both healing well. Patient at high risk for re-bleed. Results given to patient and recommendations to repeat EGD in 5-7 days. The patient was discharged planning for SNF physical deconditioning. 12/22/24 : Pt seen and exmained along with RN, she is slightly confused , no emesis for now, will get b12 tsh amonia levels. awaiting GI consult REVIEW OF SYSTEMS 12-point ROS reviewed with the patient. All pertinent positives mentioned above. Otherwise negative, noncontributory, non-pertinent. PHYSICAL EXAM GENERAL APPEARANCE: The patient is awake, alert, in no acute cardiopulmonary distress. Appears pale. NEUROLOGICAL: confused , Motor is 5/5 in bilateral upper and lower extremities proximal to distal. No sensory deficits. HEENT: Face is symmetric. Pupils are equal and reactive. Extraocular movements are intact. NECK: Supple. No JVD. No thyromegaly. No submental, submandibular, pre- /postauricular, occipital or supraclavicular lymphadenopathy. CHEST: Normal chest expansion. No Telemetry. LUNGS: Absence of any rales, rhonchi or any wheezing. CARDIOVASCULAR: Regular. S1 and S2 normal. No appreciable rubs, murmurs or gallops. ABDOMEN: Soft, nontender, and nondistended. There is no rebound, voluntary guarding, or rigidity. : Deferred. No Mcnair. EXTREMITIES: Non-edematous and not cyanotic. No clubbing. Good capillary refill. SKIN: No skin breakdown. Vital Signs (last 8hr) Date Time Temp Pulse Resp B/P (MAP) Pulse Ox O2 Delivery O2 Flow Rate FiO2 12/22/24 08:00 98.2 93 19 124/60 100 Room Air 21 12/22/24 03:00 98.4 94 20 120/51 100 Room Air LABS: Laboratory: Test 12/22/24 08:44 12/22/24 05:36 12/21/24 23:44 12/21/24 17:34 Range/Units White Blood Count 6.8 # 4.8-10.8 K/uL Red Blood Count 2.94 #L 4.00-5.50 MIL/uL Hemoglobin 8.7 #L 12.0-16.0 g/dL Hematocrit 26.1 #L 36-48 % Mean Corpuscular Volume 88.8 79-99 fL Mean Corpuscular Hemoglobin 29.6 27.0-33.0 pg Mean Corpuscular Hemoglobin Concent 33.3 32.0-36.0 g/dL Red Cell Distribution Width 16.4 H 11.0-15.5 % Platelet Count 333 130-400 K/uL Mean Platelet Volume 8.5 7.5-10.5 fL Nucleated Red Blood Cells 0.0 0.0-0.19 % Sodium Level 138 136-145 mmol/L Potassium Level 3.1 L 3.5-5.1 mmol/L Chloride Level 108 101-111 mmol/L Carbon Dioxide Level 23 21-32 mmol/L Blood Urea Nitrogen 17 7-18 mg/dL Creatinine 0.4 L 0.5-1.0 mg/dL Glomerular Filtration Rate Calc 103 >90 mL/min Random Glucose 115 H 70-105 mg/dL Total Calcium 7.5 L 8.5-10.1 mg/dL Phosphorus Level 1.8 L 2.5-4.9 mg/dL Magnesium Level 1.90 1.80-2.40 mg/dL Total Bilirubin 0.4 0.2-1.0 mg/dL Aspartate Amino Transf (AST/SGOT) 36 10-37 U/L Alanine Aminotransferase (ALT/SGPT) 34 12-78 U/L Alkaline Phosphatase 76 50-136 U/L Troponin I High Sensitivity 40 4-50 ng/L B-Type Natriuretic Peptide 109 H 0-100 pg/mL Total Protein 6.3 6.0-8.3 g/dL Albumin 2.4 L 3.5-5.0 g/dL Thyroid Stimulating Hormone (TSH) 1.40 0.36-3.74 uIU/mL Whole Blood Glucose 107 70-110 MG/DL Urine Color LIGHT-YELLOW YELLOW Urine Appearance CLEAR CLEAR Urine pH 6.0 5.0-8.0 Urine Specific [place] 1.019 1.001-1.031 Urine Protein NEGATIVE NEGATIVE mg/dL Urine Glucose (UA) NEGATIVE NEGATIVE mg/dL Urine Ketones 10 H NEGATIVE mg/dL Urine Occult Blood NEGATIVE NEGATIVE Urine Nitrate NEGATIVE NEGATIVE Urine Bilirubin NEGATIVE NEGATIVE mg/dL Urine Urobilinogen 0.2 0.2-1.0 mg/dL Urine Leukocyte Esterase NEGATIVE NEGATIVE Cara/uL Urine RBC 0-1 0-1 /HPF Urine WBC 2-5 H 0-1 /HPF Urine Squamous Epithelial Cells MOD 0-2 /HPF Urine Bacteria None None Seen /HPF Immature Granulocyte % (Auto) 0.9 0-1 % Neutrophils (%) (Auto) 87.4 H 40.0-77.0 % Lymphocytes (%) (Auto) 5.5 L 21.0-51.0 % Monocytes (%) (Auto) 5.0 3.0-13.0 % Eosinophils (%) (Auto) 0.9 0.0-8.0 % Basophils (%) (Auto) 0.3 0.0-5.0 % Neutrophils # (Auto) 9.4 H 1.8-7.7 K/uL Lymphocytes # (Auto) 0.6 L 1.0-4.8 K/uL Monocytes # (Auto) 0.5 0.1-1.0 K/uL Eosinophils # (Auto) 0.10 0.00-0.70 K/uL Basophils # (Auto) 0.03 0.00-0.20 K/uL Absolute Immature Granulocyte (auto 0.10 0-1 K/uL Hemoglobin A1c 5.3 4.0-6.0 % Estimated Average Glucose (eAG) 105 70-126 mg/dL Lipase 26 16-77 U/L Current Medications Medications (Trade) Dose Ordered Sig/Leighton Route PRN Reason Start Time Stop Time Status Last Admin Dose Admin Acetaminophen (TYLenol 325MG TAB) 650 mg Q6H PRN PO FEVER/MILD PAIN LEVEL 1-3 12/21/24 19:30 01/20/25 19:29 Acetaminophen (TYLenol 650MG SUPPOSITORY) 650 mg Q6H PRN RC FEVER / MILD PAIN 1-3 IF NPO 12/21/24 19:30 01/20/25 19:29 Atorvastatin Calcium (LIPItor 10MG) 10 mg HS PO 12/22/24 21:00 01/21/25 20:59 Cyclobenzaprine HCl (Cyclobenzaprine HCl) 10 mg TID PO 12/22/24 14:00 01/21/25 13:59 Ergocalciferol (Drisdol) 50,000 unit QWEEK PO 12/29/24 09:00 01/28/25 08:59 Estradiol (Estradiol) 0.5 mg DAILY PO 12/23/24 09:00 01/22/25 08:59 Gabapentin (NEURontin 100 mg CAP) 1 mg DAILY PO 12/23/24 09:00 01/22/25 08:59 UNV Home Med (Home Medication) (Calcium Carbonate/ Vitamin... DAILY PO 12/23/24 09:00 01/22/25 08:59 Home Med (Home Medication) (Folic Acid 480 MCG) DAILY PO 12/23/24 09:00 01/22/25 08:59 Insulin Human Regular (humuLIN R 100 UNIT/ML 3ML) INSULIN SLIDING SCAL... ACHS SQ 12/21/24 21:00 01/20/25 20:59 Lorazepam (AtiVAN) 0.5 mg TID PRN PO ANXIETY 12/22/24 10:00 01/21/25 09:59 Magnesium Sulfate 50 ml @ 0 mls/hr PROTOCOL PRN IV MAGNESIUM PROTOCOL 12/22/24 00:00 01/21/25 00:00 Octreotide Acetate 1000 mcg/ Dextrose 200 ml @ 10 mls/hr AD IV 12/21/24 19:00 12/21/24 19:10 DC Octreotide Acetate 1250 mcg/ Sodium Chloride 250 ml @ 0 mls/hr PROTOCOL IV 12/21/24 19:30 12/21/24 22:46 DC 12/21/24 20:03 5 MLS/HR Octreotide Acetate 1250 mcg/ Sodium Chloride 250 ml @ 0 mls/hr PROTOCOL IV 12/21/24 23:00 01/20/25 22:59 Ondansetron HCl (zoFRAN 4MG INJ) 4 mg Q6H PRN IVP NAUSEA/VOMITING 12/21/24 19:30 01/20/25 19:29 Oxybutynin Chloride (oxyBUTYnin chloRIDE) 5 mg TID PO 12/22/24 14:00 01/21/25 13:59 Pantoprazole Sodium (PROTonix 40MG INJ) 40 mg BID IVP 12/22/24 09:00 01/21/25 08:59 12/22/24 08:15 40 MG Potassium Chloride 100 ml @ 100 mls/hr AD PRN IV POTASSIUM PROTOCOL 12/22/24 00:00 12/22/24 00:06 DC Potassium Chloride 100 ml @ 100 mls/hr AD PRN IV POTASSIUM PROTOCOL 12/22/24 00:30 01/21/25 00:29 12/22/24 05:56 100 MLS/HR Potassium Chloride (K-Dur/Klor-Con 20meq) 20 meq AD PRN PO POTASSIUM PROTOCOL 12/22/24 00:00 01/21/25 00:00 Potassium Chloride (KCl 10% Elixir 20meq/15ml) 20 meq AD PRN PO POTASSIUM PROTOCOL 12/22/24 00:00 01/21/25 00:00 Propranolol HCl (Inderal) 20 mg DAILY PO 12/23/24 09:00 01/22/25 08:59 Sertraline HCl (ZOloft 50 mg tab) 100 mg BID PO 12/22/24 21:00 01/21/25 20:59 Sodium Chloride 1,000 ml @ 50 mls/hr Q20H IV 12/22/24 04:00 01/21/25 03:59 12/22/24 03:52 50 MLS/HR Temazepam (restORIL 15 MG CAP) 15 mg HS PRN PO INSOMNIA/SLEEP 12/21/24 19:30 12/22/24 10:21 DC DIAGNOSTICS / RADIOLOGY: [ ] ASSESSMENT: Acute GI bleed, recurrent, POA Severe anemia s/p acute blood loss requiring two units of PRBCs. Large cratered ulcers in lesser curve of proximal gastric body and in pre- pyloric antrum, both healing well, per EGD on 12/19/2024 Elevated troponin, POA, rule out ACS Acute dehydration/ketonuria, POA Severe hypokalemia, POA Tachycardia, POA Diabetes mellitus with hyperglycemia LVEF is 55 to 60%. Stage I diastolic dysfunction. RVSP is 39 mmHg, per echo on 12/17/2024 Chronic problem list: Recent GI bleed, multiple myeloma, diabetes mellitus, hypertension, fibromyalgia, arthritis, asthma, chronic back pain, history of UTIs, history of repeated falls, history of protein calorie malnutrition PLAN: GI consulted will get tsh b12 ammonia levels Continue Protonix 40 mg IV b.i.d.. Continue Sandostatin Sandostatin drip. Monitor for bleed and CBC q.6 hours. Transfuse1 unit of PRBCs p.r.n. hemoglobin less than seven. NPO for now. Consult GI in a.m.. Hematology in a.m. IV gentle hydration. Trend troponins q.6 hours x2. Collect UA. Case management consult for placement back at SNF. P.r.n. medications for: Pain management, fever, nausea, vomiting. Glucometer checks a.c. and HS with insulin regular sliding scale per protocol. Blood pressure checks every 4 hours and as needed. Reconcile home medications once available. Monitor renal and liver function. Monitor electrolytes and treat accordingly. A.m. labs. GI and DVT prophylaxis. Avoid blood thinners due to recurrent GI bleed. JOSÉ LUIS ROMEO MD Dec 22, 2024 10:41
--- NOTE | 2024-12-22 14:09 | HMCIMG ---
EXAM: CT Head Without IV contrast. CLINICAL HISTORY: ALTERED MENTAL STATUS TECHNIQUE: Axial computed tomography images of the head/brain without intravenous contrast. COMPARISON: None provided. FINDINGS: BRAIN: Age-appropriate changes. Periventricular white matter changes suggesting chronic angiopathy No evidence of acute hemorrhage. No mass lesion. No CT evidence for acute territorial infarct. No midline shift or extra-axial collections. VENTRICLES: No hydrocephalus. ORBITS: The orbits are unremarkable. SINUSES AND MASTOIDS: Chronic sinus disease involving theParanasal sinuses nasal sinuses BONES: No fracture. SOFT TISSUES: Unremarkable. IMPRESSION: No acute intracranial abnormality. /[place]
[2024-12-22] MEDS: CYCLOBENZAPRINE HCL 10 MG TABLET PO SCH (14:37)
[2024-12-22 16:19] LABS: NUCLEATED RED BLOOD CELLS 0.0 % (0.0-0.19); PLATELET COUNT (AUTO) 349.0 K/uL (130-400); RED BLOOD CELL COUNT(AUTO) 2.98 MIL/uL (4.00-5.50); RED CELL DISTRIBUTION WIDTH 16.7 % (11.0-15.5); WHITE BLOOD COUNT (AUTO) 6.8 K/uL (4.8-10.8)
[2024-12-22] MEDS: PoTASSium chl 10% ELIXIR 20MEQ 20 MEQ/15 ML UDCUP PO PRN (17:20)
--- NOTE | 2024-12-22 17:57 | CONS ---
Ms. Feldman is a 74-year-old female with past medical history of multiple myeloma, admitted yesterday with complaints of coffee-ground emesis, syncopal episode. Her hemoglobin was 6 g. Since admission patient has received 2 units of PRBC. Since patient has a history of multiple myeloma, we have been consulted. The patient was admitted on 12/17/2024 and was discharged on 12/20/2024 with a diagnosis of GI bleed.. During that visit the patient underwent EGD. EGD findings: medium hiatal hernia. Large cratered ulcers in lesser curve of proximal gastric body and in pre-pyloric antrum, both healing well. Patient at high risk for re-bleed. Results given to patient and recommendations to repeat EGD in 5-7 days. The patient was discharged planning for SNF physical deconditioning. Patient stated that she was diagnosed with multiple myeloma 12 years ago, she was treated with 4 months of Revlimid. Recently she is not receiving any treatment. She denies any back pain, bone pain. However she has usual arthritis. She follows up with Dr. Guerrero Jackson regularly. Denies any numbness or weakness anywhere. ROS: I have obtain 12 point ROS from the patient, all are negative except as above. Past Medical history: Multiple myeloma. Type 2 diabetes mellitus. Essential hypertension. Osteoarthritis. Fibromyalgia. Bronchial asthma. Chronic back pain. Recent GI bleed. Past surgical histor: Status post tonsillectomy. Status post hysterectomy. Allergies: She is allergic to Neosporin, Polysporin, amoxicillin, bacitracin. Social history: Patient does not smoke or drink. Family history: Reviewed and noncontributory. Medications: I have reviewed her medications list. Physical examination: Patient is lying in bed comfortably, she is not in any distress. HEENT. Head is atraumatic, pupils are reactive to light, extraocular muscles are intact. Mucous membranes are slightly pale. No jaundice. Neck. Supple, no lymphadenopathy. Chest. Good air entry present bilaterally, no wheezing rales or crackles. Heart. S1-S2 regular, no gallop or murmur. Abdomen. Soft, nondistended, nontender, bowel sounds are present. Extremities. No edema. Neurological exam. Patient is alert and oriented x3, no focal neurological deficit. Labs: CBC, chemistry was reviewed. Impression plan: 1. Recurrent GI bleed. 2. Recent diagnosis of gastric ulcer. 3. Multiple myeloma. 4. GERD. 5. Type 2 diabetes mellitus. 6. Essential hypertension. 7. Osteoarthritis. 8. Bronchial asthma. 9. Chronic back pain. Patient received 2 units of PRBC, she had appropriate response to blood transfusion. Continue to monitor H and H, transfuse as needed. Patient will be seen by GI for most likely repeating EGD. Patient will be needing intravenous iron after she is more stable. In addition, workup for myeloma will be done per Dr. Sam after patient is discharged. Vitals/Labs Vital Signs Date Time Temp Pulse Resp B/P (MAP) Pulse Ox O2 Delivery O2 Flow Rate FiO2 12/22/24 16:00 98.2 82 19 126/64 98 Room Air 21 12/22/24 08:15 0 Laboratory Tests 12/22/24 01:39 12/22/24 08:44 12/22/24 16:12 Allergies: Coded Allergies: amoxicillin (Unverified Allergy, Mild, rash, 10/14/23) neomycin (Unverified Allergy, Mild, rash, 10/14/23) thimerosal (Unverified Allergy, Mild, rash, 10/14/23) bacitracin (Unverified Allergy, Unknown, rash, 10/14/23) Uncoded Allergies: NEOSPORINS (Allergy, Mild, rash, 10/14/23) POLYSPORINS (Allergy, Mild, rash, 10/14/23) Medications Current Medications Sodium Chloride 1,000 ml @ 0 mls/hr ONCE ONCE IV Last administered on 12/21/24at 17:21; Start 12/21/24 at 17:30; Stop 12/21/24 at 17:31; Status DC Pantoprazole Sodium 40 mg ONCE ONCE IVP Last administered on 12/21/24at 17:21; Start 12/21/24 at 17:30; Stop 12/21/24 at 17:31; Status DC Octreotide Acetate 50 mcg ONCE ONCE IVP Last administered on 12/21/24at 20:06; Start 12/21/24 at 19:00; Stop 12/21/24 at 19:08; Status DC Octreotide Acetate 1000 mcg/ Dextrose 200 ml @ 10 mls/hr AD IV; Start 12/21/24 at 19:00; Stop 12/21/24 at 19:10; Status DC Octreotide Acetate 1250 mcg/ Sodium Chloride 250 ml @ 0 mls/hr PROTOCOL IV Last administered on 12/21/24at 20:03; Start 12/21/24 at 19:30; Stop 12/21/24 at 22:46; Status DC Acetaminophen 650 mg Q6H PRN PO; Start 12/21/24 at 19:30; Stop 01/20/25 at 19:29 Acetaminophen 650 mg Q6H PRN RC; Start 12/21/24 at 19:30; Stop 01/20/25 at 19:29 Temazepam 15 mg HS PRN PO; Start 12/21/24 at 19:30; Stop 12/22/24 at 10:21; Status DC Ondansetron HCl 4 mg Q6H PRN IVP; Start 12/21/24 at 19:30; Stop 01/20/25 at 19:29 Insulin Human Regular INSULIN SLIDING SCAL... ACHS SQ; Start 12/21/24 at 21:00; Stop 01/20/25 at 20:59 Diazepam 5 mg ONCE ONCE IVP Last administered on 12/21/24at 21:16; Start 12/21/24 at 21:00; Stop 12/21/24 at 21:01; Status DC Pantoprazole Sodium 40 mg BID IVP Last administered on 12/22/24at 08:15; Start 12/22/24 at 09:00; Stop 01/21/25 at 08:59 Octreotide Acetate 1250 mcg/ Sodium Chloride 250 ml @ 0 mls/hr PROTOCOL IV; Start 12/21/24 at 23:00; Stop 01/20/25 at 22:59 Potassium Chloride 100 ml @ 100 mls/hr AD PRN IV; Start 12/22/24 at 00:00; Stop 12/22/24 at 00:06; Status DC Potassium Chloride 20 meq AD PRN PO Last administered on 12/22/24at 17:20; Start 12/22/24 at 00:00; Stop 01/21/25 at 00:00 Potassium Chloride 20 meq AD PRN PO; Start 12/22/24 at 00:00; Stop 01/21/25 at 00:00 Magnesium Sulfate 50 ml @ 0 mls/hr PROTOCOL PRN IV; Start 12/22/24 at 00:00; Stop 01/21/25 at 00:00 Potassium Chloride 100 ml @ 100 mls/hr AD PRN IV Last administered on 12/22/24at 05:56; Start 12/22/24 at 00:30; Stop 01/21/25 at 00:29 Sodium Chloride 1,000 ml @ 50 mls/hr Q20H IV Last administered on 12/22/24at 03:52; Start 12/22/24 at 04:00; Stop 01/21/25 at 03:59 Cyclobenzaprine HCl 10 mg TID PO Last administered on 12/22/24at 14:37; Start 12/22/24 at 14:00; Stop 01/21/25 at 13:59 Ergocalciferol 50,000 unit QWEEK PO; Start 12/29/24 at 09:00; Stop 01/28/25 at 08:59 Estradiol 0.5 mg DAILY PO; Start 12/23/24 at 09:00; Stop 01/22/25 at 08:59 Gabapentin 1 mg DAILY PO; Start 12/23/24 at 09:00; Stop 12/22/24 at 14:42; Status DC Lorazepam 0.5 mg TID PRN PO; Start 12/22/24 at 10:00; Stop 01/21/25 at 09:59 Propranolol HCl 20 mg DAILY PO; Start 12/23/24 at 09:00; Stop 01/22/25 at 08:59 Home Med (Calcium Carbonate/ Vitamin... DAILY PO; Start 12/23/24 at 09:00; Stop 01/22/25 at 08:59 Home Med (Folic Acid 480 MCG) DAILY PO; Start 12/23/24 at 09:00; Stop 01/22/25 at 08:59 Atorvastatin Calcium 10 mg HS PO; Start 12/22/24 at 21:00; Stop 01/21/25 at 20:59 Sertraline HCl 100 mg BID PO; Start 12/22/24 at 21:00; Stop 01/21/25 at 20:59 Oxybutynin Chloride 5 mg TID PO Last administered on 12/22/24at 14:37; Start 12/22/24 at 14:00; Stop 01/21/25 at 13:59 LIZZY THOMAS MD Dec 22, 2024 17:57
--- NOTE | 2024-12-22 19:20 | NUR ---
cm note met with pt and was staying at [facility] prior to admit, but not sure that she wants to return. will think about it. would like to return home. pt states uses 2 wheeled walker to walk, but weaker. lives alone at home usually.needs assist with adls/ she has friend jose young in [place] [phone] that she is working on POA for her. Addendum: 12/22/24 at 1925 by CRISTHIAN CASTLE CM Amended: Links added.
[2024-12-22 22:12] LABS: NUCLEATED RED BLOOD CELLS 0.0 % (0.0-0.19); PLATELET COUNT (AUTO) 376.0 K/uL (130-400); RED BLOOD CELL COUNT(AUTO) 3.05 MIL/uL (4.00-5.50); RED CELL DISTRIBUTION WIDTH 17.0 % (11.0-15.5); WHITE BLOOD COUNT (AUTO) 6.7 K/uL (4.8-10.8)
[2024-12-23] VITALS (9 sets, daily range): BP systolic 131–136; BP diastolic 61–80; PULSE 78–87; RESP 16–20; TEMP 97.7–98.9; O2SAT 95–97
[2024-12-23 06:20] LABS: NUCLEATED RED BLOOD CELLS 0.0 % (0.0-0.19); PLATELET COUNT (AUTO) 345.0 K/uL (130-400); RED BLOOD CELL COUNT(AUTO) 3.03 MIL/uL (4.00-5.50); RED CELL DISTRIBUTION WIDTH 16.8 % (11.0-15.5); WHITE BLOOD COUNT (AUTO) 6.7 K/uL (4.8-10.8)
[2024-12-23 06:39] LABS: ASPARTATE AMINOTRANSFERASE 33.0 U/L (10-37); CREATININE 0.4 mg/dL (0.5-1.0); GLOMERULAR FILTR. RATE CALC 103.0 mL/min (>90); GLUCOSE,RANDOM 105.0 mg/dL (70-105); SODIUM SERUM 138.0 mmol/L (136-145); TOTAL PROTEIN, SERUM 6.7 g/dL (6.0-8.3); UREA NITROGEN, BLOOD 8.0 mg/dL (7-18)
[2024-12-23] MEDS: ESTRADIOL 0.5 MG TABLET PO SCH (08:49)
[2024-12-23] MEDS: PROPRANOLOL HCL 20 MG TAB PO SCH (08:49)
[2024-12-23] MEDS: CALCIUM CARBONATE PO SCH (08:50)
[2024-12-23] MEDS: VITAMIN D3 PO SCH (08:50)
[2024-12-23] MEDS: FOLIC ACID PO SCH (08:50)
[2024-12-23 10:13] LABS: % IRON SATURATION 5.5 % (22-44); IRON, SERUM 18.0 mcg/dL (50-170)
--- NOTE | 2024-12-23 10:18 | PN ---
Patient does not have any complaints. No more coffee-ground emesis. Denies abdominal pain. No bowel movement. Discussed with RN, no acute events overnight. Physical examination: Patient is lying in bed comfortably, she is not in any distress. HEENT. Head is atraumatic, pupils are reactive to light, extraocular muscles are intact. Mucous membranes are slightly pale. No jaundice. Neck. Supple, no lymphadenopathy. Chest. Good air entry present bilaterally, no wheezing rales or crackles. Heart. S1-S2 regular, no gallop or murmur. Abdomen. Soft, nondistended, nontender, bowel sounds are present. Extremities. No edema. Neurological exam. Patient is alert and oriented x3, no focal neurological deficit. Labs: CBC, chemistry was reviewed. Impression plan: 1. Recurrent GI bleed. 2. Recent diagnosis of gastric ulcer. 3. Multiple myeloma. 4. GERD. 5. Type 2 diabetes mellitus. 6. Essential hypertension. 7. Osteoarthritis. 8. Bronchial asthma. 9. Chronic back pain. Patient received 2 units of PRBC, her hemoglobin is better and stable. GI consultation is pending. Management of GI bleed per primary and GI service. Follow up with Dr. Parson and Manuel after discharge for surveillance of multiple myeloma. Vitals/Labs Vital Signs Date Time Temp Pulse Resp B/P (MAP) Pulse Ox O2 Delivery O2 Flow Rate FiO2 12/23/24 08:26 97.7 78 16 132/78 95 Room Air 12/23/24 04:00 21 12/22/24 19:20 0 Laboratory Tests 12/22/24 16:12 12/22/24 22:09 12/23/24 06:01 Medications Current Medications Sodium Chloride 1,000 ml @ 0 mls/hr ONCE ONCE IV Last administered on 12/21/24at 17:21; Start 12/21/24 at 17:30; Stop 12/21/24 at 17:31; Status DC Pantoprazole Sodium 40 mg ONCE ONCE IVP Last administered on 12/21/24at 17:21; Start 12/21/24 at 17:30; Stop 12/21/24 at 17:31; Status DC Octreotide Acetate 50 mcg ONCE ONCE IVP Last administered on 12/21/24at 20:06; Start 12/21/24 at 19:00; Stop 12/21/24 at 19:08; Status DC Octreotide Acetate 1000 mcg/ Dextrose 200 ml @ 10 mls/hr AD IV; Start 12/21/24 at 19:00; Stop 12/21/24 at 19:10; Status DC Octreotide Acetate 1250 mcg/ Sodium Chloride 250 ml @ 0 mls/hr PROTOCOL IV Last administered on 12/21/24at 20:03; Start 12/21/24 at 19:30; Stop 12/21/24 at 22:46; Status DC Acetaminophen 650 mg Q6H PRN PO; Start 12/21/24 at 19:30; Stop 01/20/25 at 19:29 Acetaminophen 650 mg Q6H PRN RC; Start 12/21/24 at 19:30; Stop 01/20/25 at 19:29 Temazepam 15 mg HS PRN PO; Start 12/21/24 at 19:30; Stop 12/22/24 at 10:21; Status DC Ondansetron HCl 4 mg Q6H PRN IVP; Start 12/21/24 at 19:30; Stop 01/20/25 at 19:29 Insulin Human Regular INSULIN SLIDING SCAL... ACHS SQ; Start 12/21/24 at 21:00; Stop 01/20/25 at 20:59 Diazepam 5 mg ONCE ONCE IVP Last administered on 12/21/24at 21:16; Start 12/21/24 at 21:00; Stop 12/21/24 at 21:01; Status DC Pantoprazole Sodium 40 mg BID IVP Last administered on 12/23/24at 08:49; Start 12/22/24 at 09:00; Stop 01/21/25 at 08:59 Octreotide Acetate 1250 mcg/ Sodium Chloride 250 ml @ 0 mls/hr PROTOCOL IV; Start 12/21/24 at 23:00; Stop 01/20/25 at 22:59 Potassium Chloride 100 ml @ 100 mls/hr AD PRN IV; Start 12/22/24 at 00:00; Stop 12/22/24 at 00:06; Status DC Potassium Chloride 20 meq AD PRN PO Last administered on 12/23/24at 08:50; Start 12/22/24 at 00:00; Stop 01/21/25 at 00:00 Potassium Chloride 20 meq AD PRN PO; Start 12/22/24 at 00:00; Stop 01/21/25 at 00:00 Magnesium Sulfate 50 ml @ 0 mls/hr PROTOCOL PRN IV; Start 12/22/24 at 00:00; Stop 01/21/25 at 00:00 Potassium Chloride 100 ml @ 100 mls/hr AD PRN IV Last administered on 12/23/24at 07:11; Start 12/22/24 at 00:30; Stop 01/21/25 at 00:29 Sodium Chloride 1,000 ml @ 50 mls/hr Q20H IV Last administered on 12/22/24at 03:52; Start 12/22/24 at 04:00; Stop 01/21/25 at 03:59 Cyclobenzaprine HCl 10 mg TID PO Last administered on 12/23/24at 08:49; Start 12/22/24 at 14:00; Stop 01/21/25 at 13:59 Ergocalciferol 50,000 unit QWEEK PO; Start 12/29/24 at 09:00; Stop 01/28/25 at 08:59 Estradiol 0.5 mg DAILY PO Last administered on 12/23/24at 08:49; Start 12/23/24 at 09:00; Stop 01/22/25 at 08:59 Gabapentin 1 mg DAILY PO; Start 12/23/24 at 09:00; Stop 12/22/24 at 14:42; Status DC Lorazepam 0.5 mg TID PRN PO; Start 12/22/24 at 10:00; Stop 01/21/25 at 09:59 Propranolol HCl 20 mg DAILY PO Last administered on 12/23/24at 08:49; Start 12/23/24 at 09:00; Stop 01/22/25 at 08:59 Home Med (Calcium Carbonate/ Vitamin... DAILY PO; Start 12/23/24 at 09:00; Stop 01/22/25 at 08:59 Home Med (Folic Acid 480 MCG) DAILY PO; Start 12/23/24 at 09:00; Stop 01/22/25 at 08:59 Atorvastatin Calcium 10 mg HS PO Last administered on 12/22/24at 21:12; Start 12/22/24 at 21:00; Stop 01/21/25 at 20:59 Sertraline HCl 100 mg BID PO Last administered on 12/23/24at 08:49; Start 12/22/24 at 21:00; Stop 01/21/25 at 20:59 Oxybutynin Chloride 5 mg TID PO Last administered on 12/23/24at 08:49; Start 12/22/24 at 14:00; Stop 01/21/25 at 13:59 LIZZY THOMAS MD Dec 23, 2024 10:18
[2024-12-23] MEDS ORDERED: COMPOUND IV MISC 1 EACH IVSOLN MISC PRN (12:30)
--- NOTE | 2024-12-23 12:35 | PN ---
[facility] PROGRESS NOTE Date of Service: Dec 23, 2024 Time of Service: 12:30 SUBJECTIVE: [ 74 year old female with history of recent GI bleed, multiple myeloma, diabetes mellitus, hypertension, fibromyalgia, arthritis, asthma, chronic back pain, history of UTIs, history of repeated falls, history of protein calorie malnutrition who presented to [facility] for evaluation coffee-ground emesis and then had a syncopal episode after she vomited. Per EMS she had a low blood pressure or 75/40 on site was given 250 of normal saline. She presented to the ED alert and oriented X4 with a clear speech. On arrival the patient was noted to have dried coffee-ground colored emesis on her chin. She denied any abdominal pain, chest pain, or back pain. V/S on ED arrival: 143/69, HR 111 bpm, RR 20 bpm, 99% RA, 99.0F. Labs: Hgb 6.7, Hct 20.7, Rbc 2.23, K 2.9, Troponin 166, BUN 34, Random Glucose 126, Calcium 8.1. The patient was admitted on 12/17/2024 and was discharged on 12/20/2024 with a diagnosis of GI bleed and general body weakness. During that visit the patient underwent EGD. EGD findings: medium hiatal hernia. Large cratered ulcers in lesser curve of proximal gastric body and in pre-pyloric antrum, both healing well. Patient at high risk for re-bleed. Results given to patient and recommendations to repeat EGD in 5-7 days. The patient was discharged planning for SNF physical deconditioning. 12/22/24 : Pt seen and exmained along with RN, she is slightly confused , no emesis for now, will get b12 tsh amonia levels. awaiting GI consult 12/23/2024. Patient was seen and examined along with RN. Known more confusion noticed today. She is at her baseline mental status. Lab work reviewed. Awaiting GI consultation. Found to have iron-deficiency with transferrin saturation of 5%. Workup including B12 TSH ammonia level and CT head was negative. No signs of bleeding. REVIEW OF SYSTEMS 12-point ROS reviewed with the patient. All pertinent positives mentioned above. Otherwise negative, noncontributory, non-pertinent. PHYSICAL EXAM GENERAL APPEARANCE: The patient is awake, alert, in no acute cardiopulmonary distress. Appears pale. NEUROLOGICAL: confused , Motor is 5/5 in bilateral upper and lower extremities proximal to distal. No sensory deficits. HEENT: Face is symmetric. Pupils are equal and reactive. Extraocular movements are intact. NECK: Supple. No JVD. No thyromegaly. No submental, submandibular, pre- /postauricular, occipital or supraclavicular lymphadenopathy. CHEST: Normal chest expansion. No Telemetry. LUNGS: Absence of any rales, rhonchi or any wheezing. CARDIOVASCULAR: Regular. S1 and S2 normal. No appreciable rubs, murmurs or gallops. ABDOMEN: Soft, nontender, and nondistended. There is no rebound, voluntary guarding, or rigidity. : Deferred. No Mcnair. EXTREMITIES: Non-edematous and not cyanotic. No clubbing. Good capillary refill. SKIN: No skin breakdown. Vital Signs (last 8hr) Date Time Temp Pulse Resp B/P (MAP) Pulse Ox O2 Delivery O2 Flow Rate FiO2 12/23/24 08:49 95 Room Air* 0 21 12/23/24 08:26 97.7 78 16 132/78 95 Room Air LABS: Laboratory: Test 12/23/24 09:25 12/23/24 06:01 12/23/24 05:24 12/22/24 16:11 Range/Units Iron Level 18 L 50-170 mcg/dL Total Iron Binding Capacity 324 250-450 mcg/dL Percent Iron Saturation 5.5 L 22-44 % White Blood Count 6.7 4.8-10.8 K/uL Red Blood Count 3.03 L 4.00-5.50 MIL/uL Hemoglobin 9.0 L 12.0-16.0 g/dL Hematocrit 26.9 L 36-48 % Mean Corpuscular Volume 88.8 79-99 fL Mean Corpuscular Hemoglobin 29.7 27.0-33.0 pg Mean Corpuscular Hemoglobin Concent 33.5 32.0-36.0 g/dL Red Cell Distribution Width 16.8 H 11.0-15.5 % Platelet Count 345 130-400 K/uL Mean Platelet Volume 8.1 7.5-10.5 fL Nucleated Red Blood Cells 0.0 0.0-0.19 % Sodium Level 138 136-145 mmol/L Potassium Level 3.2 L 3.5-5.1 mmol/L Chloride Level 105 101-111 mmol/L Carbon Dioxide Level 21 21-32 mmol/L Blood Urea Nitrogen 8 7-18 mg/dL Creatinine 0.4 L 0.5-1.0 mg/dL Glomerular Filtration Rate Calc 103 >90 mL/min Random Glucose 105 70-105 mg/dL Total Calcium 8.2 L 8.5-10.1 mg/dL Total Bilirubin 0.5 # 0.2-1.0 mg/dL Aspartate Amino Transf (AST/SGOT) 33 10-37 U/L Alanine Aminotransferase (ALT/SGPT) 34 12-78 U/L Alkaline Phosphatase 84 50-136 U/L Total Protein 6.7 6.0-8.3 g/dL Albumin 2.5 L 3.5-5.0 g/dL Whole Blood Glucose 106 70-110 MG/DL Bedside Glucose Comment Notified Nurse Test 12/22/24 10:31 12/22/24 08:44 12/21/24 23:44 12/21/24 17:34 Range/Units Ammonia 19 11-32 umol/L Vitamin B12 Level 857 193-986 pg/mL Thyroid Stimulating Hormone (TSH) 1.07 # 0.36-3.74 uIU/mL Phosphorus Level 1.8 L 2.5-4.9 mg/dL Magnesium Level 1.90 1.80-2.40 mg/dL Troponin I High Sensitivity 40 4-50 ng/L B-Type Natriuretic Peptide 109 H 0-100 pg/mL Urine Color LIGHT-YELLOW YELLOW Urine Appearance CLEAR CLEAR Urine pH 6.0 5.0-8.0 Urine Specific Orla 1.019 1.001-1.031 Urine Protein NEGATIVE NEGATIVE mg/dL Urine Glucose (UA) NEGATIVE NEGATIVE mg/dL Urine Ketones 10 H NEGATIVE mg/dL Urine Occult Blood NEGATIVE NEGATIVE Urine Nitrate NEGATIVE NEGATIVE Urine Bilirubin NEGATIVE NEGATIVE mg/dL Urine Urobilinogen 0.2 0.2-1.0 mg/dL Urine Leukocyte Esterase NEGATIVE NEGATIVE Cara/uL Urine RBC 0-1 0-1 /HPF Urine WBC 2-5 H 0-1 /HPF Urine Squamous Epithelial Cells MOD 0-2 /HPF Urine Bacteria None None Seen /HPF Immature Granulocyte % (Auto) 0.9 0-1 % Neutrophils (%) (Auto) 87.4 H 40.0-77.0 % Lymphocytes (%) (Auto) 5.5 L 21.0-51.0 % Monocytes (%) (Auto) 5.0 3.0-13.0 % Eosinophils (%) (Auto) 0.9 0.0-8.0 % Basophils (%) (Auto) 0.3 0.0-5.0 % Neutrophils # (Auto) 9.4 H 1.8-7.7 K/uL Lymphocytes # (Auto) 0.6 L 1.0-4.8 K/uL Monocytes # (Auto) 0.5 0.1-1.0 K/uL Eosinophils # (Auto) 0.10 0.00-0.70 K/uL Basophils # (Auto) 0.03 0.00-0.20 K/uL Absolute Immature Granulocyte (auto 0.10 0-1 K/uL Hemoglobin A1c 5.3 4.0-6.0 % Estimated Average Glucose (eAG) 105 70-126 mg/dL Lipase 26 16-77 U/L Current Medications Medications (Trade) Dose Ordered Sig/Leighton Route PRN Reason Start Time Stop Time Status Last Admin Dose Admin Acetaminophen (TYLenol 325MG TAB) 650 mg Q6H PRN PO FEVER/MILD PAIN LEVEL 1-3 12/21/24 19:30 01/20/25 19:29 Acetaminophen (TYLenol 650MG SUPPOSITORY) 650 mg Q6H PRN RC FEVER / MILD PAIN 1-3 IF NPO 12/21/24 19:30 01/20/25 19:29 Atorvastatin Calcium (LIPItor 10MG) 10 mg HS PO 12/22/24 21:00 01/21/25 20:59 12/22/24 21:12 10 MG Cyclobenzaprine HCl (Cyclobenzaprine HCl) 10 mg TID PO 12/22/24 14:00 01/21/25 13:59 12/23/24 08:49 10 MG Ergocalciferol (Drisdol) 50,000 unit QWEEK PO 12/29/24 09:00 01/28/25 08:59 Estradiol (Estradiol) 0.5 mg DAILY PO 12/23/24 09:00 01/22/25 08:59 12/23/24 08:49 0.5 MG Gabapentin (NEURontin 100 mg CAP) 1 mg DAILY PO 12/23/24 09:00 12/22/24 14:42 DC Home Med (Home Medication) (Calcium Carbonate/ Vitamin... DAILY PO 12/23/24 09:00 01/22/25 08:59 Home Med (Home Medication) (Folic Acid 480 MCG) DAILY PO 12/23/24 09:00 01/22/25 08:59 Insulin Human Regular (humuLIN R 100 UNIT/ML 3ML) INSULIN SLIDING SCAL... ACHS SQ 12/21/24 21:00 01/20/25 20:59 Lorazepam (AtiVAN) 0.5 mg TID PRN PO ANXIETY 12/22/24 10:00 01/21/25 09:59 Magnesium Sulfate 50 ml @ 0 mls/hr PROTOCOL PRN IV MAGNESIUM PROTOCOL 12/22/24 00:00 01/21/25 00:00 Octreotide Acetate 1000 mcg/ Dextrose 200 ml @ 10 mls/hr AD IV 12/21/24 19:00 12/21/24 19:10 DC Octreotide Acetate 1250 mcg/ Sodium Chloride 250 ml @ 0 mls/hr PROTOCOL IV 12/21/24 19:30 12/21/24 22:46 DC 12/21/24 20:03 5 MLS/HR Octreotide Acetate 1250 mcg/ Sodium Chloride 250 ml @ 0 mls/hr PROTOCOL IV 12/21/24 23:00 01/20/25 22:59 Ondansetron HCl (zoFRAN 4MG INJ) 4 mg Q6H PRN IVP NAUSEA/VOMITING 12/21/24 19:30 01/20/25 19:29 Oxybutynin Chloride (oxyBUTYnin chloRIDE) 5 mg TID PO 12/22/24 14:00 01/21/25 13:59 12/23/24 08:49 5 MG Pantoprazole Sodium (PROTonix 40MG INJ) 40 mg BID IVP 12/22/24 09:00 01/21/25 08:59 12/23/24 08:49 40 MG Potassium Chloride 100 ml @ 100 mls/hr AD PRN IV POTASSIUM PROTOCOL 12/22/24 00:00 12/22/24 00:06 DC Potassium Chloride 100 ml @ 100 mls/hr AD PRN IV POTASSIUM PROTOCOL 12/22/24 00:30 01/21/25 00:29 12/23/24 07:11 100 MLS/HR Potassium Chloride (K-Dur/Klor-Con 20meq) 20 meq AD PRN PO POTASSIUM PROTOCOL 12/22/24 00:00 01/21/25 00:00 Potassium Chloride (KCl 10% Elixir 20meq/15ml) 20 meq AD PRN PO POTASSIUM PROTOCOL 12/22/24 00:00 01/21/25 00:00 12/23/24 08:50 20 MEQ Propranolol HCl (Inderal) 20 mg DAILY PO 12/23/24 09:00 01/22/25 08:59 12/23/24 08:49 20 MG Sertraline HCl (ZOloft 50 mg tab) 100 mg BID PO 12/22/24 21:00 01/21/25 20:59 12/23/24 08:49 100 MG Sodium Chloride 1,000 ml @ 50 mls/hr Q20H IV 12/22/24 04:00 01/21/25 03:59 12/22/24 03:52 50 MLS/HR Temazepam (restORIL 15 MG CAP) 15 mg HS PRN PO INSOMNIA/SLEEP 12/21/24 19:30 12/22/24 10:21 DC DIAGNOSTICS / RADIOLOGY: [ ] ASSESSMENT: Acute GI bleed, recurrent, POA Acute blood loss anemia POA Severe anemia s/p acute blood loss requiring two units of PRBCs. POA Iron-deficiency anemia POA Large cratered ulcers in lesser curve of proximal gastric body and in pre-pylor ic antrum, both healing well, per EGD on 12/19/2024 Elevated troponin, POA, rule out ACS Acute dehydration/ketonuria, POA Severe hypokalemia, POA Tachycardia, POA Diabetes mellitus with hyperglycemia LVEF is 55 to 60%. Stage I diastolic dysfunction. RVSP is 39 mmHg, per echo on 12/17/2024 Chronic problem list: Recent GI bleed, multiple myeloma, diabetes mellitus, hypertension, fibromyalgia, arthritis, asthma, chronic back pain, history of UTIs, history of repeated falls, history of protein calorie malnutrition PLAN: GI consulted awaiting recommendations. Patient was on Sandostatin drip which was discontinued we will continue IV Protonix 40 IV b.i.d.. Patient found to have low transferrin saturation of 5% we will start IV Venofer 300 midodrine. Heme-Onc consult is appreciated. will get tsh b12 ammonia levels Continue Protonix 40 mg IV b.i.d.. Transfuse1 unit of PRBCs p.r.n. hemoglobin less than seven. If GI does not plan to do endoscopy today we will start on diet. IV gentle hydration. Glucometer checks a.c. and HS with insulin regular sliding scale per protocol. GI and DVT prophylaxis. Avoid blood thinners due to recurrent GI bleed. JOSÉ LUIS ROMEO MD Dec 23, 2024 12:35
[2024-12-24] VITALS (7 sets, daily range): BP systolic 110–139; BP diastolic 54–83; PULSE 76–84; RESP 16–20; TEMP 98–98.8; O2SAT 94–97
[2024-12-24 06:15] LABS: IMMATURE GRANULOCYTE ABSOLUTE 0.04 K/uL (0-1); NUCLEATED RED BLOOD CELLS 0.0 % (0.0-0.19); PLATELET COUNT (AUTO) 470 K/uL (130-400); RED BLOOD CELL COUNT(AUTO) 3.08 MIL/uL (4.00-5.50); RED CELL DISTRIBUTION WIDTH 16.6 % (11.0-15.5); WHITE BLOOD COUNT (AUTO) 7.2 K/uL (4.8-10.8)
[2024-12-24 06:31] LABS: CREATININE 0.4 mg/dL (0.5-1.0); GLOMERULAR FILTR. RATE CALC 103.0 mL/min (>90); GLUCOSE,RANDOM 77.0 mg/dL (70-105); SODIUM SERUM 135.0 mmol/L (136-145); UREA NITROGEN, BLOOD 8.0 mg/dL (7-18)
--- NOTE | 2024-12-24 08:08 | PN ---
LOCATION: 307. SUBJECTIVE: The patient is awake, alert. No more vomiting. No overt bleeding. Feels fine. PHYSICAL EXAMINATION: GENERAL: Shows an elderly woman. VITAL SIGNS: Blood pressure 132/58, pulse 76, respirations 16. HEENT: Benign. CHEST: Clear. ABDOMEN: Soft and nontender. EXTREMITIES: Show no edema. NEUROLOGIC: Awake and oriented. LABORATORY DATA: Hemoglobin is 9. IMPRESSION: * Recurrent GI bleed. * Gastric ulcer. * Multiple myeloma. * GERD. * Type 2 diabetes. * Hypertension. * Osteoarthritis. * Asthma. * Chronic pain. PLAN: Continue medical management. May continue Protonix. The patient is doing well. TID: [id number] RECEIPT: [id number]
--- NOTE | 2024-12-24 10:19 | PN ---
[facility] PROGRESS NOTE Date of Service: Dec 24, 2024 Time of Service: 10:05 SUBJECTIVE: [ 74 year old female with history of recent GI bleed, multiple myeloma, diabetes mellitus, hypertension, fibromyalgia, arthritis, asthma, chronic back pain, history of UTIs, history of repeated falls, history of protein calorie malnutrition who presented to [facility] for evaluation coffee-ground emesis and then had a syncopal episode after she vomited. Per EMS she had a low blood pressure or 75/40 on site was given 250 of normal saline. She presented to the ED alert and oriented X4 with a clear speech. On arrival the patient was noted to have dried coffee-ground colored emesis on her chin. She denied any abdominal pain, chest pain, or back pain. V/S on ED arrival: 143/69, HR 111 bpm, RR 20 bpm, 99% RA, 99.0F. Labs: Hgb 6.7, Hct 20.7, Rbc 2.23, K 2.9, Troponin 166, BUN 34, Random Glucose 126, Calcium 8.1. The patient was admitted on 12/17/2024 and was discharged on 12/20/2024 with a diagnosis of GI bleed and general body weakness. During that visit the patient underwent EGD. EGD findings: medium hiatal hernia. Large cratered ulcers in lesser curve of proximal gastric body and in pre-pyloric antrum, both healing well. Patient at high risk for re-bleed. Results given to patient and recommendations to repeat EGD in 5-7 days. The patient was discharged planning for SNF physical deconditioning. 12/22/24 : Pt seen and exmained along with RN, she is slightly confused , no emesis for now, will get b12 tsh amonia levels. awaiting GI consult 12/23/2024. Patient was seen and examined along with RN. Known more confusion noticed today. She is at her baseline mental status. Lab work reviewed. Awaiting GI consultation. Found to have iron-deficiency with transferrin saturation of 5%. Workup including B12 TSH ammonia level and CT head was negative. No signs of bleeding. 12/24/2024: Patient was seen and evaluated in room 307. Patient reported experiencing dry lips and throat and inquired if she can have breakfast. She had no acute complaints . The patient remains on clear liquid diet, and we are awaiting GI consultation. REVIEW OF SYSTEMS 12-point ROS reviewed with the patient. All pertinent positives mentioned above. Otherwise negative, noncontributory, non-pertinent. PHYSICAL EXAM GENERAL APPEARANCE: The patient is awake, alert, in no acute cardiopulmonary distress. Appears pale. NEUROLOGICAL: confused but at her baseline mental status, No sensory deficits. HEENT: Face is symmetric. NECK: Supple. No thyromegaly. No submental, submandibular, pre-/postauricular, occipital or supraclavicular lymphadenopathy. CHEST: Normal chest expansion. No Telemetry. LUNGS: Absence of any rales, rhonchi or any wheezing. CARDIOVASCULAR: Regular. S1 and S2 normal. No appreciable rubs, murmurs or gallops. ABDOMEN: Soft, nontender, and nondistended. There is no rebound, voluntary guarding, or rigidity. : Deferred. No Mcnair. EXTREMITIES: Non-edematous and not cyanotic. No clubbing. Good capillary refill. SKIN: No skin breakdown. Vital Signs (last 8hr) Date Time Temp Pulse Resp B/P (MAP) Pulse Ox O2 Delivery O2 Flow Rate FiO2 12/24/24 08:00 98.2 81 17 121/63 94 Room Air 12/24/24 03:27 98.1 76 16 132/58 99 Room Air LABS: Laboratory: Test 12/24/24 05:05 12/24/24 04:51 12/23/24 09:25 12/23/24 06:01 Range/Units White Blood Count 7.2 4.8-10.8 K/uL Red Blood Count 3.08 L 4.00-5.50 MIL/uL Hemoglobin 9.2 L 12.0-16.0 g/dL Hematocrit 27.7 L 36-48 % Mean Corpuscular Volume 89.9 79-99 fL Mean Corpuscular Hemoglobin 29.9 27.0-33.0 pg Mean Corpuscular Hemoglobin Concent 33.2 32.0-36.0 g/dL Red Cell Distribution Width 16.6 H 11.0-15.5 % Platelet Count 470 #H 130-400 K/uL Mean Platelet Volume 8.7 7.5-10.5 fL Immature Granulocyte % (Auto) 0.6 0-1 % Neutrophils (%) (Auto) 73.0 40.0-77.0 % Lymphocytes (%) (Auto) 8.5 L 21.0-51.0 % Monocytes (%) (Auto) 8.5 3.0-13.0 % Eosinophils (%) (Auto) 9.3 H 0.0-8.0 % Basophils (%) (Auto) 0.1 0.0-5.0 % Neutrophils # (Auto) 5.2 1.8-7.7 K/uL Lymphocytes # (Auto) 0.6 L 1.0-4.8 K/uL Monocytes # (Auto) 0.6 0.1-1.0 K/uL Eosinophils # (Auto) 0.67 0.00-0.70 K/uL Basophils # (Auto) 0.01 0.00-0.20 K/uL Absolute Immature Granulocyte (auto 0.04 0-1 K/uL Nucleated Red Blood Cells 0.0 0.0-0.19 % Sodium Level 135 L 136-145 mmol/L Potassium Level 3.5 3.5-5.1 mmol/L Chloride Level 101 101-111 mmol/L Carbon Dioxide Level 20 L 21-32 mmol/L Blood Urea Nitrogen 8 7-18 mg/dL Creatinine 0.4 L 0.5-1.0 mg/dL Glomerular Filtration Rate Calc 103 >90 mL/min Random Glucose 77 70-105 mg/dL Total Calcium 8.2 L 8.5-10.1 mg/dL Whole Blood Glucose 79 70-110 MG/DL Iron Level 18 L 50-170 mcg/dL Total Iron Binding Capacity 324 250-450 mcg/dL Percent Iron Saturation 5.5 L 22-44 % Total Bilirubin 0.5 # 0.2-1.0 mg/dL Aspartate Amino Transf (AST/SGOT) 33 10-37 U/L Alanine Aminotransferase (ALT/SGPT) 34 12-78 U/L Alkaline Phosphatase 84 50-136 U/L Total Protein 6.7 6.0-8.3 g/dL Albumin 2.5 L 3.5-5.0 g/dL Test 12/22/24 16:11 12/22/24 10:31 Range/Units Bedside Glucose Comment Notified Nurse Ammonia 19 11-32 umol/L Vitamin B12 Level 857 193-986 pg/mL Thyroid Stimulating Hormone (TSH) 1.07 # 0.36-3.74 uIU/mL Current Medications Medications (Trade) Dose Ordered Sig/Leighton Route PRN Reason Start Time Stop Time Status Last Admin Dose Admin Acetaminophen (TYLenol 325MG TAB) 650 mg Q6H PRN PO FEVER/MILD PAIN LEVEL 1-3 12/21/24 19:30 01/20/25 19:29 Acetaminophen (TYLenol 650MG SUPPOSITORY) 650 mg Q6H PRN RC FEVER / MILD PAIN 1-3 IF NPO 12/21/24 19:30 01/20/25 19:29 Atorvastatin Calcium (LIPItor 10MG) 10 mg HS PO 12/22/24 21:00 01/21/25 20:59 12/23/24 21:09 10 MG Cyclobenzaprine HCl (Cyclobenzaprine HCl) 10 mg TID PO 12/22/24 14:00 01/21/25 13:59 12/24/24 08:45 10 MG Ergocalciferol (Drisdol) 50,000 unit QWEEK PO 12/29/24 09:00 01/28/25 08:59 Estradiol (Estradiol) 0.5 mg DAILY PO 12/23/24 09:00 01/22/25 08:59 12/24/24 08:45 0.5 MG Gabapentin (NEURontin 100 mg CAP) 1 mg DAILY PO 12/23/24 09:00 12/22/24 14:42 DC Home Med (Home Medication) (Calcium Carbonate/ Vitamin... DAILY PO 12/23/24 09:00 01/22/25 08:59 Home Med (Home Medication) (Folic Acid 480 MCG) DAILY PO 12/23/24 09:00 01/22/25 08:59 Insulin Human Regular (humuLIN R 100 UNIT/ML 3ML) INSULIN SLIDING SCAL... ACHS SQ 12/21/24 21:00 01/20/25 20:59 Lorazepam (AtiVAN) 0.5 mg TID PRN PO ANXIETY 12/22/24 10:00 01/21/25 09:59 Magnesium Sulfate 50 ml @ 0 mls/hr PROTOCOL PRN IV MAGNESIUM PROTOCOL 12/22/24 00:00 01/21/25 00:00 Octreotide Acetate 1000 mcg/ Dextrose 200 ml @ 10 mls/hr AD IV 12/21/24 19:00 12/21/24 19:10 DC Octreotide Acetate 1250 mcg/ Sodium Chloride 250 ml @ 0 mls/hr PROTOCOL IV 12/21/24 19:30 12/21/24 22:46 DC 12/21/24 20:03 5 MLS/HR Octreotide Acetate 1250 mcg/ Sodium Chloride 250 ml @ 0 mls/hr PROTOCOL IV 12/21/24 23:00 01/20/25 22:59 Ondansetron HCl (zoFRAN 4MG INJ) 4 mg Q6H PRN IVP NAUSEA/VOMITING 12/21/24 19:30 01/20/25 19:29 Oxybutynin Chloride (oxyBUTYnin chloRIDE) 5 mg TID PO 12/22/24 14:00 01/21/25 13:59 12/24/24 08:45 5 MG Pantoprazole Sodium (PROTonix 40MG INJ) 40 mg BID IVP 12/22/24 09:00 01/21/25 08:59 12/24/24 08:45 40 MG Potassium Chloride 100 ml @ 100 mls/hr AD PRN IV POTASSIUM PROTOCOL 12/22/24 00:00 12/22/24 00:06 DC Potassium Chloride 100 ml @ 100 mls/hr AD PRN IV POTASSIUM PROTOCOL 12/22/24 00:30 01/21/25 00:29 12/23/24 07:11 100 MLS/HR Potassium Chloride (K-Dur/Klor-Con 20meq) 20 meq AD PRN PO POTASSIUM PROTOCOL 12/22/24 00:00 01/21/25 00:00 Potassium Chloride (KCl 10% Elixir 20meq/15ml) 20 meq AD PRN PO POTASSIUM PROTOCOL 12/22/24 00:00 01/21/25 00:00 12/23/24 16:13 20 MEQ Propranolol HCl (Inderal) 20 mg DAILY PO 12/23/24 09:00 01/22/25 08:59 12/24/24 08:45 20 MG Sertraline HCl (ZOloft 50 mg tab) 100 mg BID PO 12/22/24 21:00 01/21/25 20:59 12/24/24 08:45 100 MG Sodium Chloride 1,000 ml @ 50 mls/hr Q20H IV 12/22/24 04:00 01/21/25 03:59 12/22/24 03:52 50 MLS/HR Temazepam (restORIL 15 MG CAP) 15 mg HS PRN PO INSOMNIA/SLEEP 12/21/24 19:30 12/22/24 10:21 DC DIAGNOSTICS / RADIOLOGY: [ ] ASSESSMENT: Acute GI bleed, recurrent, POA Acute blood loss anemia POA Severe anemia s/p acute blood loss requiring two units of PRBCs. POA Iron-deficiency anemia POA Elevated troponin, POA, rule out ACS Acute dehydration/ketonuria, POA Severe hypokalemia, POA Tachycardia, POA Diabetes mellitus with hyperglycemia Chronic problem list: Recent GI bleed, multiple myeloma, diabetes mellitus, hypertension, fibromyalgia, arthritis, asthma, chronic back pain, history of UTIs, history of repeated falls, history of protein calorie malnutrition PLAN: Acute GI bleed, Acute blood loss anemia, Iron-deficiency anemia POA GI consulted awaiting recommendations. Hb - 9.2 on 12.24.2024 Patient was on Sandostatin drip which was discontinued we will continue IV Protonix 40 IV b.i.d.. Patient found to have low transferrin saturation of 5%, Started IV Venofer 300 midodrine. Heme-Onc consulted- Advised to continue Protonix Tsh - 1.07, b12 - 857 ammonia - 19 on 12/22/2024 Continue Protonix 40 mg IV b.i.d.. Transfused 2 units of PRBC. Patient is on clear liquids will be NPO from midnight Large cratered ulcers in lesser curve of proximal gastric body and in pre- pyloric antrum, both healing well, per EGD on 12/19/2024 Elevated troponin, POA, ruled out ACS Trended troponin - 40 on 12.22.2024 LVEF is 55 to 60%. Stage I diastolic dysfunction. RVSP is 39 mmHg, per echo on 12/17/2024 Acute dehydration/ketonuria, POA IV gentle hydration. Severe hypokalemia, POA- resolved potassium - 3.5 on 12.24.2024 potassium - 2.9 at the time of admission magnesium - 1.9 patient on potassium protocol Diabetes mellitus with hyperglycemia, POA Glucometer checks a.c. and HS with insulin regular sliding scale per protocol. HbA1c - 5.3 Random glucose - 77 on 12.24.2024 GI and DVT prophylaxis. Avoid blood thinners due to recurrent GI bleed. ATTESTATION BY PHYSICIAN I have seen and examined the patient. I reviewed the documentation, medical decision making, and treatment plan as noted by the resident provider above. I agree with the findings and plan of care. Joey Hernandez MD, LAKSHMI MD Dec 24, 2024 10:19
[2024-12-25] VITALS (7 sets, daily range): BP systolic 137–145; BP diastolic 61–78; PULSE 72–91; RESP 16–18; TEMP 97.9–99; O2SAT 94–96
[2024-12-25 05:32] LABS: IMMATURE GRANULOCYTE ABSOLUTE 0.02 K/uL (0-1); NUCLEATED RED BLOOD CELLS 0.0 % (0.0-0.19); PLATELET COUNT (AUTO) 542 K/uL (130-400); RED BLOOD CELL COUNT(AUTO) 3.44 MIL/uL (4.00-5.50); RED CELL DISTRIBUTION WIDTH 16.6 % (11.0-15.5); WHITE BLOOD COUNT (AUTO) 4.6 K/uL (4.8-10.8)
[2024-12-25 05:43] LABS: CREATININE 0.5 mg/dL (0.5-1.0); GLOMERULAR FILTR. RATE CALC 98.0 mL/min (>90); GLUCOSE,RANDOM 94.0 mg/dL (70-105); SODIUM SERUM 135.0 mmol/L (136-145); UREA NITROGEN, BLOOD 8.0 mg/dL (7-18)
--- NOTE | 2024-12-25 08:53 | PN ---
LOCATION: 307 SUBJECTIVE: The patient remained stable overnight, pending repeat endoscopy. When I came in the room, she said that "the doctors are planning to bury me." I asked what she meant and she said ____ to the board, is going to bury her today. There is nobody else in the room. She does know who I am. She is lucid about her friend who watches after in [place]. Her speech is clear. I do not know why she is thinking this. I will try to clarify this with the nurses. She has had intermittent confusion. PHYSICAL EXAMINATION: GENERAL: Shows an elderly woman. VITAL SIGNS: Blood pressure 143/72, pulse 72, respirations 20. HEENT: Benign. CHEST: Clear. ABDOMEN: Soft. LABORATORY: CBC ____. IMPRESSION: Recurrent GI bleed; large gastric ulcer; multiple myeloma, in remission; chronic anxiety; history of delirium; elevated troponin I; diabetes; dehydration, in remission. PLAN: The patient seems to be doing better medically. He is on IV Venofer. Continue the Protonix. I do not know why she is so confused. This is a normal neurologic exam. I agree with the workup of the hospitalist. TID: [id number] RECEIPT: [id number]
--- NOTE | 2024-12-25 15:43 | PN ---
[facility] PROGRESS NOTE Date of Service: Dec 25, 2024 Time of Service: 15:[address] Emanuel SUBJECTIVE: [ 74 year old female with history of recent GI bleed, multiple myeloma, diabetes mellitus, hypertension, fibromyalgia, arthritis, asthma, chronic back pain, history of UTIs, history of repeated falls, history of protein calorie malnutrition who presented to [facility] for evaluation coffee-ground emesis and then had a syncopal episode after she vomited. Per EMS she had a low blood pressure or 75/40 on site was given 250 of normal saline. She presented to the ED alert and oriented X4 with a clear speech. On arrival the patient was noted to have dried coffee-ground colored emesis on her chin. She denied any abdominal pain, chest pain, or back pain. V/S on ED arrival: 143/69, HR 111 bpm, RR 20 bpm, 99% RA, 99.0F. Labs: Hgb 6.7, Hct 20.7, Rbc 2.23, K 2.9, Troponin 166, BUN 34, Random Glucose 126, Calcium 8.1. The patient was admitted on 12/17/2024 and was discharged on 12/20/2024 with a diagnosis of GI bleed and general body weakness. During that visit the patient underwent EGD. EGD findings: medium hiatal hernia. Large cratered ulcers in lesser curve of proximal gastric body and in pre-pyloric antrum, both healing well. Patient at high risk for re-bleed. Results given to patient and recommendations to repeat EGD in 5-7 days. The patient was discharged planning for SNF physical deconditioning. 12/22/24 : Pt seen and exmained along with RN, she is slightly confused , no emesis for now, will get b12 tsh amonia levels. awaiting GI consult 12/23/2024. Patient was seen and examined along with RN. Known more confusion noticed today. She is at her baseline mental status. Lab work reviewed. Awaiting GI consultation. Found to have iron-deficiency with transferrin saturation of 5%. Workup including B12 TSH ammonia level and CT head was negative. No signs of bleeding. 12/24/2024: Patient was seen and evaluated in room 307. Patient reported experiencing dry lips and throat and inquired if she can have breakfast. She had no acute complaints . The patient remains on clear liquid diet, and we are awaiting GI consultation. 12/25/2024 patient was seen by nurse practitioner and physician during rounding in room 307. CT head brain was negative. At this moment we are pending further recommendations of die stamping press operator. Patient was also evaluated by station mechanic and as per his recommendation continue IV Venofer and Protonix. Patient also will receive one dose of 40 mEq of potassium. We will continue to monitor patient in the meantime. A.m. labs REVIEW OF SYSTEMS 12-point ROS reviewed with the patient. All pertinent positives mentioned above. Otherwise negative, noncontributory, non-pertinent. PHYSICAL EXAM GENERAL APPEARANCE: The patient is awake, alert, in no acute cardiopulmonary distress. Appears pale. NEUROLOGICAL: confused but at her baseline mental status, No sensory deficits. HEENT: Face is symmetric. NECK: Supple. No thyromegaly. No submental, submandibular, pre-/postauricular, occipital or supraclavicular lymphadenopathy. CHEST: Normal chest expansion. No Telemetry. LUNGS: Absence of any rales, rhonchi or any wheezing. CARDIOVASCULAR: Regular. S1 and S2 normal. No appreciable rubs, murmurs or gallops. ABDOMEN: Soft, nontender, and nondistended. There is no rebound, voluntary guarding, or rigidity. : Deferred. No Mcnair. EXTREMITIES: Non-edematous and not cyanotic. No clubbing. Good capillary refill. SKIN: No skin breakdown. Vital Signs (last 8hr) Date Time Temp Pulse Resp B/P (MAP) Pulse Ox O2 Delivery O2 Flow Rate FiO2 12/25/24 08:45 98.4 88 18 145/62 94 Room Air LABS: Laboratory: Test 12/25/24 15:19 12/25/24 04:44 Range/Units Whole Blood Glucose 86 70-110 MG/DL White Blood Count 4.6 #L 4.8-10.8 K/uL Red Blood Count 3.44 L 4.00-5.50 MIL/uL Hemoglobin 10.3 L 12.0-16.0 g/dL Hematocrit 31.2 L 36-48 % Mean Corpuscular Volume 90.7 79-99 fL Mean Corpuscular Hemoglobin 29.9 27.0-33.0 pg Mean Corpuscular Hemoglobin Concent 33.0 32.0-36.0 g/dL Red Cell Distribution Width 16.6 H 11.0-15.5 % Platelet Count 542 H 130-400 K/uL Mean Platelet Volume 8.6 7.5-10.5 fL Immature Granulocyte % (Auto) 0.4 0-1 % Neutrophils (%) (Auto) 61.9 40.0-77.0 % Lymphocytes (%) (Auto) 13.8 L 21.0-51.0 % Monocytes (%) (Auto) 11.2 3.0-13.0 % Eosinophils (%) (Auto) 12.5 H 0.0-8.0 % Basophils (%) (Auto) 0.2 0.0-5.0 % Neutrophils # (Auto) 2.9 1.8-7.7 K/uL Lymphocytes # (Auto) 0.6 L 1.0-4.8 K/uL Monocytes # (Auto) 0.5 0.1-1.0 K/uL Eosinophils # (Auto) 0.58 0.00-0.70 K/uL Basophils # (Auto) 0.01 0.00-0.20 K/uL Absolute Immature Granulocyte (auto 0.02 0-1 K/uL Nucleated Red Blood Cells 0.0 0.0-0.19 % Sodium Level 135 L 136-145 mmol/L Potassium Level 3.6 3.5-5.1 mmol/L Chloride Level 102 101-111 mmol/L Carbon Dioxide Level 22 21-32 mmol/L Blood Urea Nitrogen 8 7-18 mg/dL Creatinine 0.5 0.5-1.0 mg/dL Glomerular Filtration Rate Calc 98 >90 mL/min Random Glucose 94 70-105 mg/dL Total Calcium 8.7 8.5-10.1 mg/dL Current Medications Medications (Trade) Dose Ordered Sig/Leighton Route PRN Reason Start Time Stop Time Status Last Admin Dose Admin Acetaminophen (TYLenol 325MG TAB) 650 mg Q6H PRN PO FEVER/MILD PAIN LEVEL 1-3 12/21/24 19:30 01/20/25 19:29 12/25/24 04:31 650 MG Acetaminophen (TYLenol 650MG SUPPOSITORY) 650 mg Q6H PRN RC FEVER / MILD PAIN 1-3 IF NPO 12/21/24 19:30 01/20/25 19:29 Atorvastatin Calcium (LIPItor 10MG) 10 mg HS PO 12/22/24 21:00 01/21/25 20:59 12/24/24 21:11 10 MG Cyclobenzaprine HCl (Cyclobenzaprine HCl) 10 mg TID PO 12/22/24 14:00 01/21/25 13:59 12/24/24 17:54 10 MG Ergocalciferol (Drisdol) 50,000 unit QWEEK PO 12/29/24 09:00 01/28/25 08:59 Estradiol (Estradiol) 0.5 mg DAILY PO 12/23/24 09:00 01/22/25 08:59 12/24/24 08:45 0.5 MG Gabapentin (NEURontin 100 mg CAP) 1 mg DAILY PO 12/23/24 09:00 12/22/24 14:42 DC Home Med (Home Medication) (Calcium Carbonate/ Vitamin... DAILY PO 12/23/24 09:00 01/22/25 08:59 Home Med (Home Medication) (Folic Acid 480 MCG) DAILY PO 12/23/24 09:00 01/22/25 08:59 Insulin Human Regular (humuLIN R 100 UNIT/ML 3ML) INSULIN SLIDING SCAL... ACHS SQ 12/21/24 21:00 01/20/25 20:59 Lorazepam (AtiVAN) 0.5 mg TID PRN PO ANXIETY 12/22/24 10:00 01/21/25 09:59 Magnesium Sulfate 50 ml @ 0 mls/hr PROTOCOL PRN IV MAGNESIUM PROTOCOL 12/22/24 00:00 01/21/25 00:00 Octreotide Acetate 1000 mcg/ Dextrose 200 ml @ 10 mls/hr AD IV 12/21/24 19:00 12/21/24 19:10 DC Octreotide Acetate 1250 mcg/ Sodium Chloride 250 ml @ 0 mls/hr PROTOCOL IV 12/21/24 19:30 12/21/24 22:46 DC 12/21/24 20:03 5 MLS/HR Octreotide Acetate 1250 mcg/ Sodium Chloride 250 ml @ 0 mls/hr PROTOCOL IV 12/21/24 23:00 01/20/25 22:59 Ondansetron HCl (zoFRAN 4MG INJ) 4 mg Q6H PRN IVP NAUSEA/VOMITING 12/21/24 19:30 01/20/25 19:29 Oxybutynin Chloride (oxyBUTYnin chloRIDE) 5 mg TID PO 12/22/24 14:00 01/21/25 13:59 12/24/24 17:54 5 MG Pantoprazole Sodium (PROTonix 40MG INJ) 40 mg BID IVP 12/22/24 09:00 01/21/25 08:59 12/24/24 21:11 40 MG Potassium Chloride 100 ml @ 100 mls/hr AD PRN IV POTASSIUM PROTOCOL 12/22/24 00:00 12/22/24 00:06 DC Potassium Chloride 100 ml @ 100 mls/hr AD PRN IV POTASSIUM PROTOCOL 12/22/24 00:30 01/21/25 00:29 12/23/24 07:11 100 MLS/HR Potassium Chloride (K-Dur/Klor-Con 20meq) 20 meq AD PRN PO POTASSIUM PROTOCOL 12/22/24 00:00 01/21/25 00:00 Potassium Chloride (KCl 10% Elixir 20meq/15ml) 20 meq AD PRN PO POTASSIUM PROTOCOL 12/22/24 00:00 01/21/25 00:00 12/24/24 17:55 20 MEQ Propranolol HCl (Inderal) 20 mg DAILY PO 12/23/24 09:00 01/22/25 08:59 12/24/24 08:45 20 MG Sertraline HCl (ZOloft 50 mg tab) 100 mg BID PO 12/22/24 21:00 01/21/25 20:59 12/24/24 21:11 100 MG Sodium Chloride 1,000 ml @ 50 mls/hr Q20H IV 12/22/24 04:00 01/21/25 03:59 12/22/24 03:52 50 MLS/HR Temazepam (restORIL 15 MG CAP) 15 mg HS PRN PO INSOMNIA/SLEEP 12/21/24 19:30 12/22/24 10:21 DC DIAGNOSTICS / RADIOLOGY: [ ] ASSESSMENT: Acute GI bleed, recurrent, POA Acute blood loss anemia POA Severe anemia s/p acute blood loss requiring two units of PRBCs. POA Acute metabolic encephalopathy POA Iron-deficiency anemia POA Elevated troponin, POA, rule out ACS Acute dehydration/ketonuria, POA Severe hypokalemia, POA Tachycardia, POA Diabetes mellitus with hyperglycemia Chronic problem list: Recent GI bleed, multiple myeloma, diabetes mellitus, hypertension, fibromyalgia, arthritis, asthma, chronic back pain, history of UTIs, history of repeated falls, history of protein calorie malnutrition PLAN: CT head brain was negative. Acute GI bleed, Acute blood loss anemia, Iron-deficiency anemia POA GI consulted awaiting recommendations. Patient was on Sandostatin drip which was discontinued we will continue IV Protonix 40 IV b.i.d.. Patient found to have low transferrin saturation of 5%, Started IV Venofer 300 midodrine. Heme-Onc consulted- Advised to continue Protonix Tsh - 1.07, b12 - 857 ammonia - 19 on 12/22/2024 Continue Protonix 40 mg IV b.i.d.. Transfused 2 units of PRBC. Patient is on clear liquids Large cratered ulcers in lesser curve of proximal gastric body and in pre- pyloric antrum, both healing well, per EGD on 12/19/2024 Acute dehydration/ketonuria, POA IV gentle hydration. Severe hypokalemia, POA- resolved Patient receive 40 mEq of potassium Diabetes mellitus with hyperglycemia, POA Glucometer checks a.c. and HS with insulin regular sliding scale per protocol. HbA1c - 5.3 Random glucose - 77 on 12.24.2024 GI and DVT prophylaxis. Avoid blood thinners due to recurrent GI bleed. ATTESTATION BY PHYSICIAN I have seen and examined the patient. I reviewed the documentation, medical decision making, and treatment plan as noted by the mid-level provider above. I agree with the findings and plan of care. Mel Emanuel MD, KATARZYNA B APRN Dec 25, 2024 15:43
--- NOTE | 2024-12-25 16:50 | CONS ---
GASTROENTEROLOGY CONSULTATION NOTE Date of Consultation: Dec 25, 2024 Time of Consultation: 16:46 History of Present Illness: [ This 74-year-old female patient who presented to the emergency room with complaints of coffee-ground emesis and then had syncopal episode after vomiting. Initial WBC of 6.8, hemoglobin 8.8, platelets 349. WBC today of 4.6, hemoglobin 10.3, platelets 542. Chemistries significant for sodium of 135, total bilirubin 0.5, AST, ALT, and alkaline phosphatase are normal. Iron 18, TIBC 324, 5.5% saturation. CT of the head shows no acute intracranial abnormality. We were consulted for recurrent GI bleed, and severe anemia. Patient had undergone an EGD on 12/19/24 at was found to have one non-bleeding cratered astric ulcer with adherent clot was found in the prepyloric region of the stomach. The lesion was 20 mm in largest dimension. One nonbleeding crater gastric ulcer with pigmented material was found on the lesser curvature of the gastric body. The lesion was 20 mm in largest dimension. Patient had been recommended to have repeat EGD in 5-7 days. One exam, patient is awake, alert, and oriented x 3 in no acute distress. Her respirations are unlabored. Abdomen is soft and not distended and non-tender. Patient denied having any abdominal pain. Poc discussed and recommendations for EGD to assess for any bleeding and any pathology. Patient agreed to proceed. ] Review of Systems: CONSTITUTIONAL: No malaise or change in sensation of wellbeing. ENMT: No rhinorrhea, otorrhea, sinus pain, ear ache. CARDIOVASCULAR: No angina, palpitations, orthopnea or paroxysmal dyspnea. RESPIRATORY: No SOB. GASTROINTESTINAL: No abdominal pain, nausea, vomiting, diarrhea, hematemesis, melena or change in the patient's habitual bowel movements consistency/number. GENITOURINARY: No dysuria, hematuria or change in bladder continence. MUSCULOSKELETAL: No new muscle pain or decrease in muscular strength. No new joint swelling, redness or tenderness. SKIN: No new rash. Past Medical History: [GI bleed, multiple myeloma, diabetes mellitus, hypertension, fibromyalgia, arthritis, asthma, chronic back pain, history of UTIs, history of repeated falls, history of protein calorie malnutrition ] PAST SURGICAL HISTORY: Hysterectomy, Tonsillectomy PAST SOCIAL HISTORY: Negative: alcohol, tobacco, and illicit drugs Coded Allergies: amoxicillin (Unverified Allergy, Mild, rash, 10/14/23) neomycin (Unverified Allergy, Mild, rash, 10/14/23) thimerosal (Unverified Allergy, Mild, rash, 10/14/23) bacitracin (Unverified Allergy, Unknown, rash, 10/14/23) Uncoded Allergies: NEOSPORINS (Allergy, Mild, rash, 10/14/23) POLYSPORINS (Allergy, Mild, rash, 10/14/23) Physical Exam: GEN: Awake, alert, oriented in person, time and place, and in no acute distress. HEENT: No rhinorrhea. Oral pharyngeal mucosa is pink, moist and within normal limits. CHEST: Inspection, and palpation of the chest were unremarkable. Lung auscu ltation revealed normal breath sounds bilaterally. CARDIAC:Heart sounds are regular. ABD: Soft, non-tender and not distended. No peritoneal signs on palpation. No organomegaly. Normal bowel sounds. EXT: No cyanosis or clubbing. No edema. SKIN: Intact. No rashes. JOINTS: No evidence of synovitis or acute arthritis. NEURO: Alert and oriented to name, place and person. No focal motor deficits. Normal speech. Strength is normal. Vital Sign (Last 24 Hours) 12/24/24 12/25/24 21:00 08:45 Temp 98.4 Pulse 88 Resp 18 B/P (MAP) 145/62 Pulse Ox 94 O2 Delivery Room Air O2 Flow Rate 0 FiO2 21 Intake & Output (last 24hrs) 12/24/24 12/24/24 12/25/24 15:00 23:00 07:00 Intake Total 720 ml Output Total 1100 ml 500 ml Balance -380 ml -500 ml Laboratory: [ ] Laboratory: Test 12/25/24 15:19 12/25/24 04:44 Range/Units Whole Blood Glucose 86 70-110 MG/DL White Blood Count 4.6 #L 4.8-10.8 K/uL Red Blood Count 3.44 L 4.00-5.50 MIL/uL Hemoglobin 10.3 L 12.0-16.0 g/dL Hematocrit 31.2 L 36-48 % Mean Corpuscular Volume 90.7 79-99 fL Mean Corpuscular Hemoglobin 29.9 27.0-33.0 pg Mean Corpuscular Hemoglobin Concent 33.0 32.0-36.0 g/dL Red Cell Distribution Width 16.6 H 11.0-15.5 % Platelet Count 542 H 130-400 K/uL Mean Platelet Volume 8.6 7.5-10.5 fL Immature Granulocyte % (Auto) 0.4 0-1 % Neutrophils (%) (Auto) 61.9 40.0-77.0 % Lymphocytes (%) (Auto) 13.8 L 21.0-51.0 % Monocytes (%) (Auto) 11.2 3.0-13.0 % Eosinophils (%) (Auto) 12.5 H 0.0-8.0 % Basophils (%) (Auto) 0.2 0.0-5.0 % Neutrophils # (Auto) 2.9 1.8-7.7 K/uL Lymphocytes # (Auto) 0.6 L 1.0-4.8 K/uL Monocytes # (Auto) 0.5 0.1-1.0 K/uL Eosinophils # (Auto) 0.58 0.00-0.70 K/uL Basophils # (Auto) 0.01 0.00-0.20 K/uL Absolute Immature Granulocyte (auto 0.02 0-1 K/uL Nucleated Red Blood Cells 0.0 0.0-0.19 % Sodium Level 135 L 136-145 mmol/L Potassium Level 3.6 3.5-5.1 mmol/L Chloride Level 102 101-111 mmol/L Carbon Dioxide Level 22 21-32 mmol/L Blood Urea Nitrogen 8 7-18 mg/dL Creatinine 0.5 0.5-1.0 mg/dL Glomerular Filtration Rate Calc 98 >90 mL/min Random Glucose 94 70-105 mg/dL Total Calcium 8.7 8.5-10.1 mg/dL Current Medications Medications (Trade) Dose Ordered Sig/Leighton Route PRN Reason Start Time Stop Time Status Last Admin Dose Admin Acetaminophen (TYLenol 325MG TAB) 650 mg Q6H PRN PO FEVER/MILD PAIN LEVEL 1-3 12/21/24 19:30 01/20/25 19:29 12/25/24 04:31 650 MG Acetaminophen (TYLenol 650MG SUPPOSITORY) 650 mg Q6H PRN RC FEVER / MILD PAIN 1-3 IF NPO 12/21/24 19:30 01/20/25 19:29 Atorvastatin Calcium (LIPItor 10MG) 10 mg HS PO 12/22/24 21:00 01/21/25 20:59 12/24/24 21:11 10 MG Cyclobenzaprine HCl (Cyclobenzaprine HCl) 10 mg TID PO 12/22/24 14:00 01/21/25 13:59 12/24/24 17:54 10 MG Ergocalciferol (Drisdol) 50,000 unit QWEEK PO 12/29/24 09:00 01/28/25 08:59 Estradiol (Estradiol) 0.5 mg DAILY PO 12/23/24 09:00 01/22/25 08:59 12/24/24 08:45 0.5 MG Gabapentin (NEURontin 100 mg CAP) 1 mg DAILY PO 12/23/24 09:00 12/22/24 14:42 DC Home Med (Home Medication) (Calcium Carbonate/ Vitamin... DAILY PO 12/23/24 09:00 01/22/25 08:59 Home Med (Home Medication) (Folic Acid 480 MCG) DAILY PO 12/23/24 09:00 01/22/25 08:59 Insulin Human Regular (humuLIN R 100 UNIT/ML 3ML) INSULIN SLIDING SCAL... ACHS SQ 12/21/24 21:00 01/20/25 20:59 Lorazepam (AtiVAN) 0.5 mg TID PRN PO ANXIETY 12/22/24 10:00 01/21/25 09:59 Magnesium Sulfate 50 ml @ 0 mls/hr PROTOCOL PRN IV MAGNESIUM PROTOCOL 12/22/24 00:00 01/21/25 00:00 Octreotide Acetate 1000 mcg/ Dextrose 200 ml @ 10 mls/hr AD IV 12/21/24 19:00 12/21/24 19:10 DC Octreotide Acetate 1250 mcg/ Sodium Chloride 250 ml @ 0 mls/hr PROTOCOL IV 12/21/24 19:30 12/21/24 22:46 DC 12/21/24 20:03 5 MLS/HR Octreotide Acetate 1250 mcg/ Sodium Chloride 250 ml @ 0 mls/hr PROTOCOL IV 12/21/24 23:00 01/20/25 22:59 Ondansetron HCl (zoFRAN 4MG INJ) 4 mg Q6H PRN IVP NAUSEA/VOMITING 12/21/24 19:30 01/20/25 19:29 Oxybutynin Chloride (oxyBUTYnin chloRIDE) 5 mg TID PO 12/22/24 14:00 01/21/25 13:59 12/24/24 17:54 5 MG Pantoprazole Sodium (PROTonix 40MG INJ) 40 mg BID IVP 12/22/24 09:00 01/21/25 08:59 12/24/24 21:11 40 MG Potassium Chloride 100 ml @ 100 mls/hr AD PRN IV POTASSIUM PROTOCOL 12/22/24 00:00 12/22/24 00:06 DC Potassium Chloride 100 ml @ 100 mls/hr AD PRN IV POTASSIUM PROTOCOL 12/22/24 00:30 01/21/25 00:29 12/23/24 07:11 100 MLS/HR Potassium Chloride (K-Dur/Klor-Con 20meq) 20 meq AD PRN PO POTASSIUM PROTOCOL 12/22/24 00:00 01/21/25 00:00 Potassium Chloride (KCl 10% Elixir 20meq/15ml) 20 meq AD PRN PO POTASSIUM PROTOCOL 12/22/24 00:00 01/21/25 00:00 12/24/24 17:55 20 MEQ Propranolol HCl (Inderal) 20 mg DAILY PO 12/23/24 09:00 01/22/25 08:59 12/24/24 08:45 20 MG Sertraline HCl (ZOloft 50 mg tab) 100 mg BID PO 12/22/24 21:00 01/21/25 20:59 12/24/24 21:11 100 MG Sodium Chloride 1,000 ml @ 50 mls/hr Q20H IV 12/22/24 04:00 01/21/25 03:59 12/22/24 03:52 50 MLS/HR Temazepam (restORIL 15 MG CAP) 15 mg HS PRN PO INSOMNIA/SLEEP 12/21/24 19:30 12/22/24 10:21 DC Diagnostics / Radiology: [COPY/PASTE HERE IF NO REPORTS PLEASE DELETE SECTION] Assessment: [ Hematemesis Concern for GI bleed HX of gastric ulcers Anemia] Plan: Case discussed with Dr. Hester [NPO after midnight Plan for EGD in am Trend HGB q 6 hours and transfuse as needed to goal HGB>7. Please call with questions, concerns, and change in clinical status Thank you for this consult. ] RADHA BOSWELL NP Dec 25, 2024 16:50
--- NOTE | 2024-12-25 19:42 | NUR ---
NURSING NOTE PATIENT IS SCHEDULED TO GO TO EGD FOR TOMORROW. ELBERT FLIGHT ENGINEER WAS IN TO SEE PATIENT AND EXPLAINED PROCEDURE AND ANSWERED PATIENTS QUESTIONS. PRIMARY NURSE WENT IN TO GET CONSENT, PATIENT DID NOT WAN TO SIGN CONSENT STATING SHE WANTED TO HELP PEOPLE WITH THE PROGRAM AND WAS POINTING TO HER TOOTH THAT IS MISSING. I EXPLAINED THE PROCEDURE AND REASON FOR PROCEDURE. PATIENT IS STILL REFERRING TO A 'PROGRAM' AND DID NOT WANT TO SIGN CONSENT WITHOUT TALKING TO THE DOCTOR ABOUT IT. SPOKE TO LANIE 'FRIEND' FROM PATIENTS CHART AND STATED PATIENT DOES NOT HAVE POA AND IF THE PATENT DOES NOT WANT TO SIGN IT SHE DOESN'T WANT TO GO AGAINST PATIENTS WISHES.
--- NOTE | 2024-12-25 20:41 | NUR ---
Patient is not well oriented at this time, she seems to be talking in circles and refusing medications because "only Sami can save her". she stated to me that she is not willing to sign consent for her egd that has been ordered for tomorrow. she wants to speak to Dr. Mercado.
[2024-12-25] MEDS: PoTASSium chloRIDE 20MEQ ER 20 MEQ ERTAB PO ONE (20:46)
[2024-12-26] VITALS (23 sets, daily range): BP systolic 99–165; BP diastolic 53–93; PULSE 72–92; RESP 14–21; TEMP 97.3–98.7; O2SAT 95–96
[2024-12-26 05:24] LABS: IMMATURE GRANULOCYTE ABSOLUTE 0.04 K/uL (0-1); NUCLEATED RED BLOOD CELLS 0.0 % (0.0-0.19); PLATELET COUNT (AUTO) 616 K/uL (130-400); RED BLOOD CELL COUNT(AUTO) 3.38 MIL/uL (4.00-5.50); RED CELL DISTRIBUTION WIDTH 16.2 % (11.0-15.5); WHITE BLOOD COUNT (AUTO) 5.7 K/uL (4.8-10.8)
[2024-12-26 05:46] LABS: ASPARTATE AMINOTRANSFERASE 30.0 U/L (10-37); CREATININE 0.4 mg/dL (0.5-1.0); GLOMERULAR FILTR. RATE CALC 103.0 mL/min (>90); GLUCOSE,RANDOM 89.0 mg/dL (70-105); SODIUM SERUM 136.0 mmol/L (136-145); TOTAL PROTEIN, SERUM 7.3 g/dL (6.0-8.3); UREA NITROGEN, BLOOD 6.0 mg/dL (7-18)
[2024-12-26] MEDS: MAGNESIUM 2GM PREMIX 50ML 50 ML IV PRN (06:32)
--- NOTE | 2024-12-26 08:28 | PN ---
LOCATION: [facility]. SUBJECTIVE: The patient remains stable overnight, awaiting GI to see her for possible EGD today. She did have a bleeding ulcer on last admission. She came in [facility] again from the [facility]. She is awake, alert. She has been receiving Protonix and Venofer. PHYSICAL EXAMINATION: GENERAL: Shows a pleasant elderly woman. VITAL SIGNS: Blood pressure 114/93, pulse 88, respirations 20. CHEST: Clear and soft. EXTREMITIES: Show no edema. NEUROLOGIC: Intact. LABORATORY DATA: Hemoglobin 9.9. IMPRESSION: * Recurrent GI bleeding. * Iron deficiency anemia. * Multiple myeloma. * Metabolic encephalopathy. * Iron deficiency anemia. * Elevated troponin. * Tachycardia. * Diabetes. PLAN: She has not signed the consent for the EGD. She wants to speak to ____, apparently going to perform it. Continue Protonix and iron. She is otherwise stable. She will [facility] to [facility]. TID: [id number] RECEIPT: [id number]
[2024-12-26] MEDS ORDERED: LIDOCAINE HCL 400MG/20ML VIAL ONE (11:25)
--- NOTE | 2024-12-26 13:02 | PN ---
[facility] PROGRESS NOTE Date of Service: Dec 26, 2024 Time of Service: 12:51 SUBJECTIVE: [ 74 year old female with history of recent GI bleed, multiple myeloma, diabetes mellitus, hypertension, fibromyalgia, arthritis, asthma, chronic back pain, history of UTIs, history of repeated falls, history of protein calorie malnutrition who presented to [facility] for evaluation coffee-ground emesis and then had a syncopal episode after she vomited. Per EMS she had a low blood pressure or 75/40 on site was given 250 of normal saline. She presented to the ED alert and oriented X4 with a clear speech. On arrival the patient was noted to have dried coffee-ground colored emesis on her chin. She denied any abdominal pain, chest pain, or back pain. V/S on ED arrival: 143/69, HR 111 bpm, RR 20 bpm, 99% RA, 99.0F. Labs: Hgb 6.7, Hct 20.7, Rbc 2.23, K 2.9, Troponin 166, BUN 34, Random Glucose 126, Calcium 8.1. The patient was admitted on 12/17/2024 and was discharged on 12/20/2024 with a diagnosis of GI bleed and general body weakness. During that visit the patient underwent EGD. EGD findings: medium hiatal hernia. Large cratered ulcers in lesser curve of proximal gastric body and in pre-pyloric antrum, both healing well. Patient at high risk for re-bleed. Results given to patient and recommendations to repeat EGD in 5-7 days. The patient was discharged planning for SNF physical deconditioning. 12/22/24 : Pt seen and exmained along with RN, she is slightly confused , no emesis for now, will get b12 tsh amonia levels. awaiting GI consult 12/23/2024. Patient was seen and examined along with RN. Known more confusion noticed today. She is at her baseline mental status. Lab work reviewed. Awaiting GI consultation. Found to have iron-deficiency with transferrin saturation of 5%. Workup including B12 TSH ammonia level and CT head was negative. No signs of bleeding. 12/24/2024: Patient was seen and evaluated in room 307. Patient reported experiencing dry lips and throat and inquired if she can have breakfast. She had no acute complaints . The patient remains on clear liquid diet, and we are awaiting GI consultation. 12/25/2024 patient was seen by nurse practitioner and physician during rounding in room 307. CT head brain was negative. At this moment we are pending further recommendations of paper wood cutter. Patient was also evaluated by language pathologist and as per his recommendation continue IV Venofer and Protonix. Patient also will receive one dose of 40 mEq of potassium. We will continue to monitor patient in the meantime. A.m. labs 12/26/2024: Patient was seen and evaluated in room 307. She was repeatedly stating that Sami will save her. She refused to sign the EGD consent; however, the morning nurse was able to obtain her signature. She is likely to undergo EGD today, awaiting gastroenterology recommendations. Addendum- EGD Findings: Large hiatal hernia was noted. Two non-bleeding gastric ulcers with a visible vessel were seen in the cardia, lesser curvature, and prepyloric region; hemostasis was achieved with a monopolar probe and biopsies were taken for histology. REVIEW OF SYSTEMS 12-point ROS reviewed with the patient. All pertinent positives mentioned above. Otherwise negative, noncontributory, non-pertinent. PHYSICAL EXAM GENERAL APPEARANCE: The patient is awake, alert, in no acute cardiopulmonary distress. Appears pale. NEUROLOGICAL: confused but at her baseline mental status, No sensory deficits. HEENT: Face is symmetric. NECK: Supple. No thyromegaly. No submental, submandibular, pre-/postauricular, occipital or supraclavicular lymphadenopathy. CHEST: Normal chest expansion. No Telemetry. LUNGS: Absence of any rales, rhonchi or any wheezing. CARDIOVASCULAR: Regular. S1 and S2 normal. No appreciable rubs, murmurs or gallops. ABDOMEN: Soft, nontender, and nondistended. There is no rebound, voluntary guarding, or rigidity. : Deferred. No Mcnair. EXTREMITIES: Non-edematous and not cyanotic. No clubbing. Good capillary refill. SKIN: No skin breakdown. Vital Signs (last 8hr) Date Time Temp Pulse Resp B/P (MAP) Pulse Ox O2 Delivery O2 Flow Rate FiO2 12/26/24 12:12 97.3 88 15 102/54 95 Room Air 12/26/24 12:07 91 14 107/57 96 Room Air 12/26/24 12:02 90 14 111/53 97 Room Air 12/26/24 11:57 87 15 110/59 95 Room Air 12/26/24 11:52 92 14 112/54 99 Nonrebreathing Mask 10.0 12/26/24 11:47 91 14 99/57 100 Nonrebreathing Mask 10.0 12/26/24 11:42 97.5 87 15 124/55 100 Nonrebreathing Mask 10.0 12/26/24 11:30 Mask 12/26/24 11:30 Mask 10.0 12/26/24 08:02 97.9 84 18 165/76 95 Room Air LABS: Laboratory: Test 12/26/24 05:25 12/26/24 04:41 Range/Units Whole Blood Glucose 100 70-110 MG/DL White Blood Count 5.7 4.8-10.8 K/uL Red Blood Count 3.38 L 4.00-5.50 MIL/uL Hemoglobin 9.9 L 12.0-16.0 g/dL Hematocrit 30.7 L 36-48 % Mean Corpuscular Volume 90.8 79-99 fL Mean Corpuscular Hemoglobin 29.3 27.0-33.0 pg Mean Corpuscular Hemoglobin Concent 32.2 32.0-36.0 g/dL Red Cell Distribution Width 16.2 H 11.0-15.5 % Platelet Count 616 H 130-400 K/uL Mean Platelet Volume 8.3 7.5-10.5 fL Immature Granulocyte % (Auto) 0.7 0-1 % Neutrophils (%) (Auto) 68.4 40.0-77.0 % Lymphocytes (%) (Auto) 11.9 L 21.0-51.0 % Monocytes (%) (Auto) 11.2 3.0-13.0 % Eosinophils (%) (Auto) 7.5 0.0-8.0 % Basophils (%) (Auto) 0.3 0.0-5.0 % Neutrophils # (Auto) 3.9 1.8-7.7 K/uL Lymphocytes # (Auto) 0.7 L 1.0-4.8 K/uL Monocytes # (Auto) 0.6 0.1-1.0 K/uL Eosinophils # (Auto) 0.43 0.00-0.70 K/uL Basophils # (Auto) 0.02 0.00-0.20 K/uL Absolute Immature Granulocyte (auto 0.04 0-1 K/uL Nucleated Red Blood Cells 0.0 0.0-0.19 % Sodium Level 136 136-145 mmol/L Potassium Level 3.4 L 3.5-5.1 mmol/L Chloride Level 101 101-111 mmol/L Carbon Dioxide Level 25 21-32 mmol/L Blood Urea Nitrogen 6 L 7-18 mg/dL Creatinine 0.4 L 0.5-1.0 mg/dL Glomerular Filtration Rate Calc 103 >90 mL/min Random Glucose 89 70-105 mg/dL Total Calcium 8.5 8.5-10.1 mg/dL Magnesium Level 1.70 L 1.80-2.40 mg/dL Total Bilirubin 0.4 0.2-1.0 mg/dL Aspartate Amino Transf (AST/SGOT) 30 10-37 U/L Alanine Aminotransferase (ALT/SGPT) 32 12-78 U/L Alkaline Phosphatase 106 50-136 U/L Total Protein 7.3 6.0-8.3 g/dL Albumin 2.6 L 3.5-5.0 g/dL Current Medications Medications (Trade) Dose Ordered Sig/Leighton Route PRN Reason Start Time Stop Time Status Last Admin Dose Admin Acetaminophen (TYLenol 325MG TAB) 650 mg Q6H PRN PO FEVER/MILD PAIN LEVEL 1-3 12/21/24 19:30 01/20/25 19:29 12/25/24 04:31 650 MG Acetaminophen (TYLenol 650MG SUPPOSITORY) 650 mg Q6H PRN RC FEVER / MILD PAIN 1-3 IF NPO 12/21/24 19:30 01/20/25 19:29 Atorvastatin Calcium (LIPItor 10MG) 10 mg HS PO 12/22/24 21:00 01/21/25 20:59 12/24/24 21:11 10 MG Cyclobenzaprine HCl (Cyclobenzaprine HCl) 10 mg TID PO 12/22/24 14:00 01/21/25 13:59 12/26/24 08:07 10 MG Ergocalciferol (Drisdol) 50,000 unit QWEEK PO 12/29/24 09:00 01/28/25 08:59 Estradiol (Estradiol) 0.5 mg DAILY PO 12/23/24 09:00 01/22/25 08:59 12/26/24 08:07 0.5 MG Gabapentin (NEURontin 100 mg CAP) 1 mg DAILY PO 12/23/24 09:00 12/22/24 14:42 DC Home Med (Home Medication) (Calcium Carbonate/ Vitamin... DAILY PO 12/23/24 09:00 01/22/25 08:59 Home Med (Home Medication) (Folic Acid 480 MCG) DAILY PO 12/23/24 09:00 01/22/25 08:59 Insulin Human Regular (humuLIN R 100 UNIT/ML 3ML) INSULIN SLIDING SCAL... ACHS SQ 12/21/24 21:00 01/20/25 20:59 Lorazepam (AtiVAN) 0.5 mg TID PRN PO ANXIETY 12/22/24 10:00 01/21/25 09:59 12/26/24 00:14 0.5 MG Magnesium Sulfate 50 ml @ 0 mls/hr PROTOCOL PRN IV MAGNESIUM PROTOCOL 12/22/24 00:00 01/21/25 00:00 12/26/24 06:32 25 MLS/HR Octreotide Acetate 1000 mcg/ Dextrose 200 ml @ 10 mls/hr AD IV 12/21/24 19:00 12/21/24 19:10 DC Octreotide Acetate 1250 mcg/ Sodium Chloride 250 ml @ 0 mls/hr PROTOCOL IV 12/21/24 19:30 12/21/24 22:46 DC 12/21/24 20:03 5 MLS/HR Octreotide Acetate 1250 mcg/ Sodium Chloride 250 ml @ 0 mls/hr PROTOCOL IV 12/21/24 23:00 01/20/25 22:59 Ondansetron HCl (zoFRAN 4MG INJ) 4 mg Q6H PRN IVP NAUSEA/VOMITING 12/21/24 19:30 01/20/25 19:29 Oxybutynin Chloride (oxyBUTYnin chloRIDE) 5 mg TID PO 12/22/24 14:00 01/21/25 13:59 12/26/24 08:07 5 MG Pantoprazole Sodium (PROTonix 40MG INJ) 40 mg BID IVP 12/22/24 09:00 01/21/25 08:59 12/26/24 08:06 40 MG Potassium Chloride 100 ml @ 100 mls/hr AD PRN IV POTASSIUM PROTOCOL 12/22/24 00:00 12/22/24 00:06 DC Potassium Chloride 100 ml @ 100 mls/hr AD PRN IV POTASSIUM PROTOCOL 12/22/24 00:30 01/21/25 00:29 12/25/24 19:01 100 MLS/HR Potassium Chloride (K-Dur/Klor-Con 20meq) 20 meq AD PRN PO POTASSIUM PROTOCOL 12/22/24 00:00 01/21/25 00:00 Potassium Chloride (KCl 10% Elixir 20meq/15ml) 20 meq AD PRN PO POTASSIUM PROTOCOL 12/22/24 00:00 01/21/25 00:00 12/24/24 17:55 20 MEQ Propranolol HCl (Inderal) 20 mg DAILY PO 12/23/24 09:00 01/22/25 08:59 12/26/24 08:07 20 MG Sertraline HCl (ZOloft 50 mg tab) 100 mg BID PO 12/22/24 21:00 01/21/25 20:59 12/26/24 08:07 100 MG Sodium Chloride 1,000 ml @ 50 mls/hr Q20H IV 12/22/24 04:00 01/21/25 03:59 12/26/24 08:06 50 MLS/HR Temazepam (restORIL 15 MG CAP) 15 mg HS PRN PO INSOMNIA/SLEEP 12/21/24 19:30 12/22/24 10:21 DC DIAGNOSTICS / RADIOLOGY: EGD Report: 12.26.2024 Findings: Large hiatal hernia present. Duodenum appeared normal. Two non-bleeding cratered gastric ulcers with a visible vessel were identified: One in the cardia One on the lesser curvature of the gastric body One in the prepyloric region of the stomach Largest lesion measured 20 mm in greatest dimension. Vaporization for hemostasis using a monopolar probe was successful. Biopsies were obtained with cold forceps from the gastric body and lesser curvature for histology. Impression: Large hiatal hernia. Non-bleeding gastric ulcers with a visible vessel, treated successfully with monopolar probe. Biopsies taken for histologic evaluation. ASSESSMENT: Acute GI bleed, recurrent, POA Acute blood loss anemia POA Severe anemia s/p acute blood loss requiring two units of PRBCs. POA Acute metabolic encephalopathy POA Iron-deficiency anemia POA Elevated troponin, POA, rule out ACS Acute dehydration/ketonuria, POA Severe hypokalemia, POA Tachycardia, POA Diabetes mellitus with hyperglycemia Chronic problem list: Recent GI bleed, multiple myeloma, diabetes mellitus, hypertension, fibromyalgia, arthritis, asthma, chronic back pain, history of UTIs, history of repeated falls, history of protein calorie malnutrition PLAN: CT head brain was negative. Acute GI bleed, Acute blood loss anemia, Iron-deficiency anemia POA EGD revealed Large hiatal hernia was noted. Two non-bleeding gastric ulcers with a visible vessel were seen in the cardia, lesser curvature, and prepyloric region; hemostasis was achieved with a monopolar probe and biopsies were taken for histology. Gastroenterology recommended - Clear liquid diet Initiate Pantoprazole (Protonix) therapy: 80 mg IV bolus, then 8 mg/hr IV continuous infusion. Sucralfate 1 g orally, four times daily (QID). Avoid aspirin, ibuprofen, naproxen, and other NSAIDs. Hgb- 9.9 on 12.26.2024 Patient was on Sandostatin drip which was discontinued we will continue IV Protonix 40 IV b.i.d.. Patient found to have low transferrin saturation of 5%, given 2 IV Venofer 300mg, will give one more today. Heme-Onc consulted- Advised to continue Protonix Tsh - 1.07, b12 - 857 ammonia - 19 on 12/22/2024 Continue Protonix 40 mg IV b.i.d.. Transfused 2 units of PRBC. Patient is on clear liquids Large cratered ulcers in lesser curve of proximal gastric body and in pre- pyloric antrum, both healing well, per EGD on 12/19/2024 Acute dehydration/ketonuria, POA IV gentle hydration. Severe hypokalemia, POA- resolved Patient receive 40 mEq of potassium potassium - 3.4 Magnesium - 1.7 Electrolytes will be replenished as per protocol Diabetes mellitus with hyperglycemia, POA Glucometer checks a.c. and HS with insulin regular sliding scale per protocol. HbA1c - 5.3 GI and DVT prophylaxis. Avoid blood thinners due to recurrent GI bleed. ATTESTATION BY PHYSICIAN I have seen and examined the patient. I reviewed the documentation, medical decision making, and treatment plan as noted by the resident provider above. I agree with the findings and plan of care. Joey Hernandez MD, LAKSHMI MD Dec 26, 2024 13:02
[2024-12-26] MEDS ORDERED: LACTULOSE 20 GM/30 ML UDCUP PO PRN (15:00)
[2024-12-26] MEDS ORDERED: COMPOUND IV REFRIGERATED 1 EACH IVSOLN MISC PRN (15:00)
[2024-12-26] MEDS: LACTULOSE 20 GM/30 ML UDCUP PO ONE (15:52)
[2024-12-26] MEDS: SUCRALFATE 1 GM TABLET PO SCH (15:53)
[2024-12-27 03:18] VITALS: BP 130/62; PULSE 80; RESP 18; TEMP 97.6
[2024-12-27 04:55] LABS: IMMATURE GRANULOCYTE ABSOLUTE 0.02 K/uL (0-1); NUCLEATED RED BLOOD CELLS 0.0 % (0.0-0.19); PLATELET COUNT (AUTO) 658 K/uL (130-400); RED BLOOD CELL COUNT(AUTO) 3.57 MIL/uL (4.00-5.50); RED CELL DISTRIBUTION WIDTH 15.9 % (11.0-15.5); WHITE BLOOD COUNT (AUTO) 3.9 K/uL (4.8-10.8)
[2024-12-27 05:03] LABS: CREATININE 0.6 mg/dL (0.5-1.0); GLOMERULAR FILTR. RATE CALC 94.0 mL/min (>90); GLUCOSE,RANDOM 96.0 mg/dL (70-105); SODIUM SERUM 135.0 mmol/L (136-145); UREA NITROGEN, BLOOD 5.0 mg/dL (7-18)
[2024-12-27 07:58] VITALS: BP 123/70; PULSE 83; RESP 18; TEMP 97.6
--- NOTE | 2024-12-27 08:01 | PN ---
LOCATION: 307 SUBJECTIVE: The patient is doing much better. She is awake and alert. She is doing well. EGD showed 2 non-bleeding ulcers. They did do some kind of hemostasis probe. It does not seem to be bleeding at the moment. PHYSICAL EXAMINATION: GENERAL: Elderly woman. VITAL SIGNS: Blood pressure 130/62, pulse 80, respirations 18. HEENT: Benign. CHEST: Clear. ABDOMEN: Soft and nontender. EXTREMITIES: Show no edema. NEUROLOGIC: Intact. LABORATORY DATA: Hemoglobin is 10. IMPRESSION: Recurrent GI bleeding; bleeding ulcers; multiple myeloma, in remission; large hiatal hernia; chronic anxiety; metabolic encephalopathy, resolved; iron deficiency anemia; elevated troponin; diabetes. PLAN: Continue management per the primary team. Advance her diet. She should be [facility]. TID: [id number] RECEIPT: [id number]
[2024-12-27 09:01] VITALS: O2SAT 97
[2024-12-27 11:42] VITALS: BP 121/58; PULSE 82; RESP 18; TEMP 98.1
--- NOTE | 2024-12-27 13:01 | NUR ---
PATIENT IS AGITATED AT THIS TIME. PATIENT REFUSED BLOOD SUGAR CHECK. UNABLE TO ADMINISTER INSULIN AT THIS TIME.
--- NOTE | 2024-12-27 13:22 | NUR ---
ENTERED PATIENT ROOM TO ADMINISTER NOON MEDS. PATIENT IS AGITATED AT THIS TIME AND STATES, "HOLD ON ONE MOMENT, I WANT TO TALK TO YOU". WHEN ASKED WHAT PATIENT WANTS TO SPEAK ABOUT, PATIENT STATES, "I WANT TO KNOW ABOUT MY MEETING WITH THE DOCTOR AND THE OTHER RN. YOU SAID I WOULD HAVE A MEETING WITH THEM AND THAT YOU COULD GET YOUR PEOPLE EASILY. WHAT'S HAPPENING WITH THAT"? ASKED PATIENT WHAT SHE WANTED TO MEET ABOUT AND PATIENT STATED, "MY PHONE! MY CELL PHONE IS GONE. THE ONLY THING I HAVE IS THIS HOSPITAL PHONE THAT YOU GAVE ME THAT DOESN'T WORK. I DON'T UNDERSTAND WHY YOU LIED TO ME". WHEN THE PATIENT WAS ASKED HOW I LIED TO HER PATIENT LAUGHED AND STATED, "MCCULLOUGH! I CAN LAUGH BECAUSE THAT IS A JOKE. YOU SAID YOU WOULD BRING ME A PHONE TO CALL MY FRIENDS AND THIS HOSPITAL PHONE DOESN'T EVEN WORK". WHEN ASKED WHEN THE HOSPITAL PHONE WAS PROVIDED, PATIENT STATED, "OH I DON'T KNOW, IT'S BEEN THERE FOR ABOUT 2 WEEKS NOW". PATIENT THEN STATED, "I UNDERSTAND YOU GUYS ARE BUSY, BUT I HAVE RIGHTS... PATIENT RIGHTS. I DESERVE TO KNOW WHAT'S GOING ON". WHEN EXPLAINING TO THE PATIENT THAT MEDICATIONS WERE TO BE ADMINISTERED BY MD ORDER PATIENT STATED, "NO HOLD ON JUST A MOMENT. I DON'T WANT TO TAKE MEDICATIONS FROM SOME DOCTOR THAT I HAVEN'T EVEN MET". WHEN ASKED IF PATIENT WAS REFUSING MEDICATIONS PATIENT STATED, "NO, I DIDN'T SAY THAT. YOU'RE VERY SMART. JUST LISTEN. WHAT DID I SAY"? TOLD PATIENT THAT SHE HAD STATED THAT SHE WOULD REFUSE MEDICATIONS IF THEY CAME FROM A DOCTOR THAT SHE DIDN'T KNOW. PATIENT REPLIED BY STATING, "YES". PRIMARY DOCTORS ARRIVED ON UNIT AT THIS TIME. REPORTED TO PRIMARY DOCTOR AND RESIDENT THAT PATIENT WAS CONFUSED AND REFUSING ALL CARE. SPOKE WITH RELIGION INSTRUCTOR REGARDING PATIENT SITUATION. CONTACTED HAND SPRAY OPERATOR AND SECURITY TOOK REPORT OF PATIENT'S MISSING CELL PHONE.
--- NOTE | 2024-12-27 14:11 | NUR ---
Discharge Planning: Called and spoke to Nydia Hewitt, patient's MPOA. Gave consent to refer patient back to [facility]. Patient is very confused and unable to make her own decisions at present time. As per Hayley at [facility], states not sure if administration will take patient back because she has no discharge plan after SNF. Pending decision from administration from [facility].
--- NOTE | 2024-12-27 14:15 | NUR ---
Discharge Planning: Nydia Hewitt patient's MPOA. and
--- NOTE | 2024-12-27 16:12 | NUR ---
PATIENT REFUSED EVENING VITALS AND BLOOD SUGAR CHECK. UNABLE TO ADMINISTER INSULIN DOSE.
--- NOTE | 2024-12-27 16:16 | PN ---
[facility] PROGRESS NOTE Date of Service: Dec 27, 2024 Time of Service: 16:12 SUBJECTIVE: [ 74 year old female with history of recent GI bleed, multiple myeloma, diabetes mellitus, hypertension, fibromyalgia, arthritis, asthma, chronic back pain, history of UTIs, history of repeated falls, history of protein calorie malnutrition who presented to [facility] [place] [place] for evaluation coffee-ground emesis and then had a syncopal episode after she vomited. Per EMS she had a low blood pressure or 75/40 on site was given 250 of normal saline. She presented to the ED alert and oriented X4 with a clear speech. On arrival the patient was noted to have dried coffee-ground colored emesis on her chin. She denied any abdominal pain, chest pain, or back pain. V/S on ED arrival: 143/69, HR 111 bpm, RR 20 bpm, 99% RA, 99.0F. Labs: Hgb 6.7, Hct 20.7, Rbc 2.23, K 2.9, Troponin 166, BUN 34, Random Glucose 126, Calcium 8.1. The patient was admitted on 12/17/2024 and was discharged on 12/20/2024 with a diagnosis of GI bleed and general body weakness. During that visit the patient underwent EGD. EGD findings: medium hiatal hernia. Large cratered ulcers in lesser curve of proximal gastric body and in pre-pyloric antrum, both healing well. Patient at high risk for re-bleed. Results given to patient and recommendations to repeat EGD in 5-7 days. The patient was discharged planning for SNF physical deconditioning. 12/22/24 : Pt seen and exmained along with RN, she is slightly confused , no emesis for now, will get b12 tsh amonia levels. awaiting GI consult 12/23/2024. Patient was seen and examined along with RN. Known more confusion noticed today. She is at her baseline mental status. Lab work reviewed. Awaiting GI consultation. Found to have iron-deficiency with transferrin saturation of 5%. Workup including B12 TSH ammonia level and CT head was negative. No signs of bleeding. 12/24/2024: Patient was seen and evaluated in room 307. Patient reported experiencing dry lips and throat and inquired if she can have breakfast. She had no acute complaints . The patient remains on clear liquid diet, and we are awaiting GI consultation. 12/25/2024 patient was seen by nurse practitioner and physician during rounding in room 307. CT head brain was negative. At this moment we are pending further recommendations of management aide. Patient was also evaluated by sound person and as per his recommendation continue IV Venofer and Protonix. Patient also will receive one dose of 40 mEq of potassium. We will continue to monitor patient in the meantime. A.m. labs 12/26/2024: Patient was seen and evaluated in room 307. She was repeatedly stating that Sami will save her. She refused to sign the EGD consent; however, the morning nurse was able to obtain her signature. She is likely to undergo EGD today, awaiting gastroenterology recommendations. Addendum- EGD Findings: Large hiatal hernia was noted. Two non-bleeding gastric ulcers with a visible vessel were seen in the cardia, lesser curvature, and prepyloric region; hemostasis was achieved with a monopolar probe and biopsies were taken for histology. 12.27.2024: The patient was seen and evaluated in room 307. She was noted to be confused. Her diet was advanced from clear liquids to full liquids, which she is tolerating well. We plan to continue advancing her diet and discharge her to a correction facility (SNF). The patient is significantly confused and unable to make her own decisions. We discussed the discharge plan with her power of business specialist, her friend Nydia, who agreed to the transfer to the SNF. Case management is coordinating the discharge arrangements. She received one additional dose of Venofer today. Her hemoglobin is 10.5, and is stable. REVIEW OF SYSTEMS 12-point ROS reviewed with the patient. All pertinent positives mentioned above. Otherwise negative, noncontributory, non-pertinent. PHYSICAL EXAM GENERAL APPEARANCE: The patient is awake, alert, in no acute cardiopulmonary distress. Appears pale. NEUROLOGICAL: confused but at her baseline, No sensory deficits. HEENT: Face is symmetric. NECK: Supple. No thyromegaly. No submental, submandibular, pre-/postauricular, occipital or supraclavicular lymphadenopathy. CHEST: Normal chest expansion. No Telemetry. LUNGS: Absence of any rales, rhonchi or any wheezing. CARDIOVASCULAR: Regular. S1 and S2 normal. No appreciable rubs, murmurs or gallops. ABDOMEN: Soft, nontender, and nondistended. There is no rebound, voluntary guarding, or rigidity. : Deferred. No Mcnair. EXTREMITIES: Non-edematous and not cyanotic. No clubbing. Good capillary refill. SKIN: No skin breakdown. Vital Signs (last 8hr) Date Time Temp Pulse Resp B/P (MAP) Pulse Ox O2 Delivery O2 Flow Rate FiO2 12/27/24 11:42 98.1 82 18 121/58 98 Room Air 12/27/24 09:01 97 Room Air* 0 21 LABS: Laboratory: Test 12/27/24 04:49 12/27/24 04:43 12/26/24 04:41 Range/Units Whole Blood Glucose 92 70-110 MG/DL White Blood Count 3.9 L 4.8-10.8 K/uL Red Blood Count 3.57 L 4.00-5.50 MIL/uL Hemoglobin 10.5 L 12.0-16.0 g/dL Hematocrit 32.3 L 36-48 % Mean Corpuscular Volume 90.5 79-99 fL Mean Corpuscular Hemoglobin 29.4 27.0-33.0 pg Mean Corpuscular Hemoglobin Concent 32.5 32.0-36.0 g/dL Red Cell Distribution Width 15.9 H 11.0-15.5 % Platelet Count 658 H 130-400 K/uL Mean Platelet Volume 8.5 7.5-10.5 fL Immature Granulocyte % (Auto) 0.5 0-1 % Neutrophils (%) (Auto) 55.8 40.0-77.0 % Lymphocytes (%) (Auto) 18.8 L 21.0-51.0 % Monocytes (%) (Auto) 10.4 3.0-13.0 % Eosinophils (%) (Auto) 13.7 H 0.0-8.0 % Basophils (%) (Auto) 0.8 0.0-5.0 % Neutrophils # (Auto) 2.2 1.8-7.7 K/uL Lymphocytes # (Auto) 0.7 L 1.0-4.8 K/uL Monocytes # (Auto) 0.4 0.1-1.0 K/uL Eosinophils # (Auto) 0.54 0.00-0.70 K/uL Basophils # (Auto) 0.03 0.00-0.20 K/uL Absolute Immature Granulocyte (auto 0.02 0-1 K/uL Nucleated Red Blood Cells 0.0 0.0-0.19 % Sodium Level 135 L 136-145 mmol/L Potassium Level 4.0 3.5-5.1 mmol/L Chloride Level 100 L 101-111 mmol/L Carbon Dioxide Level 26 21-32 mmol/L Blood Urea Nitrogen 5 L 7-18 mg/dL Creatinine 0.6 0.5-1.0 mg/dL Glomerular Filtration Rate Calc 94 >90 mL/min Random Glucose 96 70-105 mg/dL Total Calcium 8.8 8.5-10.1 mg/dL Magnesium Level 1.70 L 1.80-2.40 mg/dL Total Bilirubin 0.4 0.2-1.0 mg/dL Aspartate Amino Transf (AST/SGOT) 30 10-37 U/L Alanine Aminotransferase (ALT/SGPT) 32 12-78 U/L Alkaline Phosphatase 106 50-136 U/L Total Protein 7.3 6.0-8.3 g/dL Albumin 2.6 L 3.5-5.0 g/dL Current Medications Medications (Trade) Dose Ordered Sig/Leighton Route PRN Reason Start Time Stop Time Status Last Admin Dose Admin Acetaminophen (TYLenol 325MG TAB) 650 mg Q6H PRN PO FEVER/MILD PAIN LEVEL 1-3 12/21/24 19:30 01/20/25 19:29 12/26/24 23:27 650 MG Acetaminophen (TYLenol 650MG SUPPOSITORY) 650 mg Q6H PRN RC FEVER / MILD PAIN 1-3 IF NPO 12/21/24 19:30 01/20/25 19:29 Atorvastatin Calcium (LIPItor 10MG) 10 mg HS PO 12/22/24 21:00 01/21/25 20:59 12/26/24 20:57 10 MG Cyclobenzaprine HCl (Cyclobenzaprine HCl) 10 mg TID PO 12/22/24 14:00 01/21/25 13:59 12/27/24 08:59 10 MG Ergocalciferol (Drisdol) 50,000 unit QWEEK PO 12/29/24 09:00 01/28/25 08:59 Estradiol (Estradiol) 0.5 mg DAILY PO 12/23/24 09:00 01/22/25 08:59 12/27/24 08:59 0.5 MG Gabapentin (NEURontin 100 mg CAP) 1 mg DAILY PO 12/23/24 09:00 12/22/24 14:42 DC Home Med (Home Medication) (Calcium Carbonate/ Vitamin... DAILY PO 12/23/24 09:00 01/22/25 08:59 Home Med (Home Medication) (Folic Acid 480 MCG) DAILY PO 12/23/24 09:00 01/22/25 08:59 Insulin Human Regular (humuLIN R 100 UNIT/ML 3ML) INSULIN SLIDING SCAL... ACHS SQ 12/21/24 21:00 01/20/25 20:59 Lactulose (Constulose 20gm/ 30ml Udcup) 20 gm ONCE PRN PO CONSTIPATION 12/26/24 15:00 01/25/25 14:59 Lorazepam (AtiVAN) 0.5 mg TID PRN PO ANXIETY 12/22/24 10:00 01/21/25 09:59 12/27/24 00:52 0.5 MG Magnesium Sulfate 50 ml @ 0 mls/hr PROTOCOL PRN IV MAGNESIUM PROTOCOL 12/22/24 00:00 01/21/25 00:00 12/26/24 06:32 25 MLS/HR Octreotide Acetate 1000 mcg/ Dextrose 200 ml @ 10 mls/hr AD IV 12/21/24 19:00 12/21/24 19:10 DC Octreotide Acetate 1250 mcg/ Sodium Chloride 250 ml @ 0 mls/hr PROTOCOL IV 12/21/24 19:30 12/21/24 22:46 DC 12/21/24 20:03 5 MLS/HR Octreotide Acetate 1250 mcg/ Sodium Chloride 250 ml @ 0 mls/hr PROTOCOL IV 12/21/24 23:00 01/20/25 22:59 Ondansetron HCl (zoFRAN 4MG INJ) 4 mg Q6H PRN IVP NAUSEA/VOMITING 12/21/24 19:30 01/20/25 19:29 Oxybutynin Chloride (oxyBUTYnin chloRIDE) 5 mg TID PO 12/22/24 14:00 01/21/25 13:59 12/27/24 08:59 5 MG Pantoprazole Sodium (PROTonix 40MG INJ) 40 mg BID IVP 12/22/24 09:00 12/26/24 14:48 DC 12/26/24 08:06 40 MG Pantoprazole Sodium 80 mg/ Sodium Chloride 100 ml @ 10 mls/hr Q10H IV 12/26/24 15:00 01/25/25 14:59 12/27/24 13:18 10 MLS/HR Potassium Chloride 100 ml @ 100 mls/hr AD PRN IV POTASSIUM PROTOCOL 12/22/24 00:00 12/22/24 00:06 DC Potassium Chloride 100 ml @ 100 mls/hr AD PRN IV POTASSIUM PROTOCOL 12/22/24 00:30 01/21/25 00:29 12/25/24 19:01 100 MLS/HR Potassium Chloride (K-Dur/Klor-Con 20meq) 20 meq AD PRN PO POTASSIUM PROTOCOL 12/22/24 00:00 01/21/25 00:00 Potassium Chloride (KCl 10% Elixir 20meq/15ml) 20 meq AD PRN PO POTASSIUM PROTOCOL 12/22/24 00:00 01/21/25 00:00 12/26/24 19:37 20 MEQ Propranolol HCl (Inderal) 20 mg DAILY PO 12/23/24 09:00 01/22/25 08:59 12/27/24 08:59 20 MG Sertraline HCl (ZOloft 50 mg tab) 100 mg BID PO 12/22/24 21:00 01/21/25 20:59 12/27/24 08:59 100 MG Sodium Chloride 1,000 ml @ 50 mls/hr Q20H IV 12/22/24 04:00 01/21/25 03:59 12/27/24 04:45 50 MLS/HR Sucralfate (Carafate) 1 gm Q6H PO 12/26/24 15:00 01/25/25 14:59 12/27/24 09:01 1 GM Temazepam (restORIL 15 MG CAP) 15 mg HS PRN PO INSOMNIA/SLEEP 12/21/24 19:30 12/22/24 10:21 DC DIAGNOSTICS / RADIOLOGY: [ ] ASSESSMENT: Acute GI bleed, recurrent, POA Acute blood loss anemia POA Severe anemia s/p acute blood loss requiring two units of PRBCs. POA Acute metabolic encephalopathy POA Iron-deficiency anemia POA Elevated troponin, POA, rule out ACS Acute dehydration/ketonuria, POA Severe hypokalemia, POA Tachycardia, POA Diabetes mellitus with hyperglycemia Chronic problem list: Recent GI bleed, multiple myeloma, diabetes mellitus, hypertension, fibromyalgia, arthritis, asthma, chronic back pain, history of UTIs, history of repeated falls, history of protein calorie malnutrition PLAN: CT head brain was negative. Acute GI bleed, Acute blood loss anemia, Iron-deficiency anemia POA EGD revealed Large hiatal hernia was noted. Two non-bleeding gastric ulcers with a visible vessel were seen in the cardia, lesser curvature, and prepyloric region; hemostasis was achieved with a monopolar probe and biopsies were taken for histology. Gastroenterology recommended - Clear liquid diet Initiate Pantoprazole (Protonix) therapy: 80 mg IV bolus, then 8 mg/hr IV continuous infusion. Sucralfate 1 g orally, four times daily (QID). Avoid aspirin, ibuprofen, naproxen, and other NSAIDs. Hgb- 10.5 on 12.27.2024 Patient was on Sandostatin drip which was discontinued we will continue IV Protonix 40 IV b.i.d.. Patient found to have low transferrin saturation of 5%, given 3 IV Venofer 300mg. Heme-Onc consulted- Advised to continue Protonix Tsh - 1.07, b12 - 857 ammonia - 19 on 12/22/2024 Continue Protonix 40 mg IV b.i.d.. Transfused 2 units of PRBC. Patient is on clear liquids Large cratered ulcers in lesser curve of proximal gastric body and in pre- pyloric antrum, both healing well, per EGD on 12/19/2024 Acute dehydration/ketonuria, POA IV gentle hydration. Severe hypokalemia, POA- resolved Patient receive 40 mEq of potassium Electrolytes will be replenished as per protocol Diabetes mellitus with hyperglycemia, POA Glucometer checks a.c. and HS with insulin regular sliding scale per protocol. HbA1c - 5.3 GI and DVT prophylaxis. Avoid blood thinners due to recurrent GI bleed. ATTESTATION BY PHYSICIAN I have seen and examined the patient. I reviewed the documentation, medical decision making, and treatment plan as noted by the resident provider above. I agree with the findings and plan of care. Dane Emanuel MD, LAKSHMI MD Dec 27, 2024 16:16
--- NOTE | 2024-12-27 16:22 | DS ---
Discharge Summary Hospital Course Summary: The patient is a 74-year-old female with a history of multiple myeloma, diabetes mellitus, hypertension, fibromyalgia, arthritis, asthma, chronic back pain, recurrent UTIs, repeated falls, and protein-calorie malnutrition who presented on 12/21/2024 with coffee-ground emesis followed by a syncopal episode. On arrival to the ED, she was alert and oriented 4 with clear speech. Vital signs showed BP 143/69 mmHg, HR 111 bpm, RR 20, SpO2 99% on room air, and temperature 99.0F. Labs revealed hemoglobin 6.7 g/dL, hematocrit 20.7%, RBC 2.23 M/L, potassium 2.9 mmol/L, troponin 166 ng/L, BUN 34 mg/dL, random glucose 126 mg/dL, and calcium 8.1 mg/dL. She denied abdominal, chest, or back pain and received initial resuscitation with IV fluids. She was transfused with 2 units of leukocyte-reduced RBCs on 12/21 and 12/22. During her hospital stay, the patient underwent EGD which demonstrated a large hiatal hernia and two non-bleeding gastric ulcers in the cardia, lesser curvature, and prepyloric region; hemostasis was successfully achieved with a monopolar probe, and biopsies were obtained. She experienced intermittent confusion, which remained at her baseline, and was notably unable to make dec isions independently. Extensive workup including B12, TSH, ammonia, iron studies, and CT head was negative. She received potassium supplementation as needed and tolerated her hospital course without further bleeding or acute complications. The patient is now stable for discharge on 12/27/2024. She will continue a clear liquid diet with gradual advancement as tolerated, and follow-up with gastroenterology and hematology is recommended. Due to physical deconditioning, discharge to a fci facility ( [facility]) is advised for rehabilitation support. The patients power of health care attorney, Nydia, has been contacted and has agreed with the discharge plan. The patient and family have been counseled on signs of re-bleeding, medication adherence, and the importance of follow-up appointments. Addendum: The patient was initially informed of planned discharge to [facility] via EMS. Upon hearing this, she became upset, expressing concerns that facility was not clean and refused to leave. Consequently, discharge was held overnight. Discharge was rescheduled for the following morning; however due to unavailability of transferred hazmat tanker driver's until 8:00 a.m. and subsequent unavailability of nursing staff who were attending a meeting, the discharge was further delayed. The patient was discharged to [facility] at 12:30 p.m. on 12.28.2024. Senior Linux Unix Administrator(s): Gastroenterology consultation- Case discussed with Dr. Hester [NPO after midnight Plan for EGD in am Trend HGB q 6 hours and transfuse as needed to goal HGB>7. Hematology consultation- followup on outpatient basis for multiple myeloma and anemia Procedure(s): EGD Report: 12.26.2024 Findings: Large hiatal hernia present. Duodenum appeared normal. Two non-bleeding cratered gastric ulcers with a visible vessel were identified: One in the cardia One on the lesser curvature of the gastric body One in the prepyloric region of the stomach Largest lesion measured 20 mm in greatest dimension. Vaporization for hemostasis using a monopolar probe was successful. Biopsies were obtained with cold forceps from the gastric body and lesser curvature for histology. Impression: Large hiatal hernia. Non-bleeding gastric ulcers with a visible vessel, treated successfully with monopolar probe. Biopsies taken for histologic evaluation. Assessment/Plan: Discharge Diagnosis: Acute GI bleed, recurrent, POA Acute blood loss anemia POA Severe anemia s/p acute blood loss requiring two units of PRBCs. POA Acute metabolic encephalopathy POA Iron-deficiency anemia POA Elevated troponin, POA, rule out ACS Acute dehydration/ketonuria, POA Severe hypokalemia, POA Tachycardia, POA Diabetes mellitus with hyperglycemia Chronic problem list: Recent GI bleed, multiple myeloma, diabetes mellitus, hypertension, fibromyalgia, arthritis, asthma, chronic back pain, history of UTIs, history of repeated falls, history of protein calorie malnutrition PLAN: Acute GI bleed, Acute blood loss anemia, Iron-deficiency anemia POA Follow up with Gastroenterology in a week for the biopsy report Hgb- 10.5 on 12.27.2024 Continue Protonix 40 mg po b.i.d.. Transfused 2 units of PRBC. Discharge Instructions: DATE OF ADMISSION: 12.21.2024 DATE OF DISCHARGE: 12.27.2024 DISPOSITION: [facility]- [facility] CONDITION: Medically stable CONSULTANTS: Dr. Hester - Gastroenterology ERIN Conrad MD - Hematology FOLLOW UP APPOINTMENTS: Follow up with your primary care doctor in 2 to 3 days Follow up with Gastroenterology for biopsy reports and hematology in a week SPECIFIC INSTRUCTIONS: Drink plenty of fluids to maintain hydration. Continue medications as prescribed PROCEDURES: EGD IMAGING: report attached to summary MICROBIOLOGY: report attached to summary HOME MEDICATIONS: see med rec NEW MEDICATIONS: See medication reconciliation EMERGENCY INSTRUCTIONS: The patient was instructed to present to the nearest Emergency department or call 911 once their symptoms will return or worsen. Home Medications: Reported Medications Gabapentin (Gabapentin) 100 Mg Capsule, 21 CAP PO DAILY for pain for 30 Days, #90 CAP 0 Refills 12/17/24 Lactobacillus Combo No.10 (Probiotic) 20 Billion Cell Capsule, 2 TAB PO DAILY for 30 Days, #30 TAB 0 Refills 12/17/24 Multivitamin (Multi Vitamin Daily) 1 Each Tablet, 1 TAB PO DAILY for 30 Days, #30 TAB 0 Refills 12/17/24 Calcium Carbonate/Vitamin D3 (Calcium 1,000 + D3 Caplet) 1,000 Mg-20 Tablet, 1 TAB PO DAILY for 30 Days, #30 TAB 0 Refills 12/17/24 Folic Acid (Folic Acid) 480 Mcg Capsule, 480 MCG PO DAILY, CAP 12/17/24 Estradiol (Estradiol) 0.5 Mg Tablet, 1 TAB PO DAILY for 30 Days, #30 TAB 0 Refills 12/17/24 Propranolol HCl (Propranolol HCl) 20 Mg Tablet, 20 MG PO DAILY, TAB 12/17/24 Methylprednisolone (Methylprednisolone) 8 Mg Tablet, 1 TAB PO DAILY for 5 Days, #5 TAB 0 Refills 12/17/24 Lorazepam (Ativan) 0.5 Mg Tablet, 0.5 MG PO TID PRN for ANXIETY, TAB 12/17/24 Tolterodine Tartrate (Tolterodine Tartrate ER) 4 Mg Cap.er.24h, 1 CAP PO DAILY for 30 Days, #30 CAP 0 Refills 12/17/24 Cyclobenzaprine HCl (Cyclobenzaprine HCl) 10 Mg Tablet, 1 TAB PO TID for muscle spasms for 10 Days, #30 TAB 0 Refills 12/17/24 Ergocalciferol (Vitamin D2) (Vitamin D2) 1,250 Mcg (80125 Unit) Capsule, 1.25 CAP PO QWEEK for 28 Days, #4 CAP 0 Refills 12/17/24 Pravastatin Sodium (Pravastatin Sodium) 40 Mg Tablet, 1 TAB PO HS for 30 Days, #30 TAB 0 Refills 12/17/24 Sertraline HCl (Sertraline HCl) 100 Mg Tablet, 100 MG PO BID, TAB 12/17/24 Time spent arranging discharge: 1-30 minutes ATTESTATION BY PHYSICIAN I have seen and examined the patient. I reviewed the documentation, medical decision making, and treatment plan as noted by the resident provider above. I agree with the findings and plan of care. Dane Emanuel MD, LAKSHMI MD Dec 27, 2024 16:22
--- NOTE | 2024-12-27 18:00 | NUR ---
REPORT GIVEN TO RAÚL WITH [facility]. PENDING ARRIVAL OF TRANSFER VAN FROM [facility].
--- NOTE | 2024-12-27 18:20 | NUR ---
TRANSPORT STAFF ARRIVED FROM [facility] TO TRANSFER PATIENT. ENTERED PATIENT ROOM TO ASSIST WITH TRANSFERRING PATIENT TO WHEELCHAIR. PATIENT IMMEDIATELY BECAME IRRITATED AND STATED, "WHAT'S GOING ON HERE". ATTEMPTED TO EXPLAIN TO PATIENT THAT SHE HAD BEEN MEDICALLY CLEARED FOR DISCHARGE AND THAT SHE WOULD BE TRANSFERRED TO [facility]. PATIENT STATED, "NO YOU SEE, THIS IS EXACTLY WHAT NOBODY TOLD ME ABOUT. I ALREADY SAID THAT I DON'T WANT TO GO TO THAT PLACE. IT'S FILTHY AND IT STINKS". NOTIFIED CHARGE NURSE OF SITUATION. CHARGE NURSE ATTEMPTED TO EXPLAIN TO PATIENT THAT SHE WAS MEDICALLY CLEARED FOR DISCHARGE AND THAT SHE WOULD BE TRANSFERRED TO [facility]. PATIENT IS EXTREMELY IRRITABLE AND DOES NOT AGREE WITH DISCHARGE PLAN. ATTEMPTED TO EXPLAIN TO PATIENT THAT HER MEDICAL POA HAD ALREADY DISCUSSED WITH CASE MANAGEMENT AND AGREED TO SEND PATIENT TO [facility]. PATIENT STATED, "NO SHE DOESN'T KNOW. I WANT YOU TO GET HER DOWN HERE NOW SO WE CAN ALL HAVE A MEET". EXPLAINED TO PATIENT THAT THE MEDICAL POA COULD NOT BE CALLED HERE SHE LIVED OUT OF STATE. SPOKE WITH RAÚL WITH [facility] AND UPDATED HER REGARDING THE PATIENT'S STATEMENTS. PER RAÚL, THE [facility] ANIMAL DAYCARE PROVIDER NEEDED TO RETURN. SPOKE WITH CHARGE NURSE REGARDING DISCHARGE PLAN. PER CHARGE, PATIENT WILL BE TRANSFERRED VIA EMS TO [facility] IF PATIENT BECOMES MORE AGREEABLE WITH DISCHARGE PLAN.
[2024-12-27 20:00] VITALS: BP_SYST 111; BP_SYST 149; BP_DIAS 64; BP_DIAS 74; PULSE 46; PULSE 85; RESP 20; TEMP 97.8
--- NOTE | 2024-12-27 20:24 | NUR ---
PATIENT IS NOT IN AGREEMENT WITH GOING BACK TO [facility] SAYS "IT IS FILTHY AND THEY DON'T TREAT ME RIGHT". FRIEND IS AT BEDSIDE AT THIS TIME AND IS NOT ABLE TO CONVINCE PATIENT TO AGREE TO GO TO [facility]. PATIENT SAYS, "DISCHARGE WAS NOT DONE PROPERLY AND WAS NOT DISCUSSED WITH HER OR HER FRIEND FROM OUT OF STATE AND UNTIL THERE IS ANOTHER PLAN IN PLACE SHE WILL NOT BE LEAVING." CHARGE NURSE MADE AWARE.
--- NOTE | 2024-12-27 23:15 | NUR ---
PATIENT MADE AWARE SHE HAS BEEN DISCHARGED AND WILL BE GOING HOME TO [facility] VIA EMS. PATIENT BECAME UPSET STATING "THAT PLACE IS FILTHY AND I AM NOT GOING THERE, MYRA CASTAÑEDA SAID HE WAS COMING UP WITH A NEW PLAN AND HE NEVER CAME BACK". RECORDER MADE PATIENT AWARE THERE WAS NO OTHER SAID PLAN DR HAD ALREADY MEDICALLY CLEARED HER TO GO BACK HOME. PATIENT STATED "NO ONE HAS SPOKEN TO ME OR MY FRIEND WHO IS IN CHARGE OF ME AND I HAVE SPOKEN TO HER TONIGHT AND I WILL NOT BE GOING UNTIL THINGS ARE DONE PROPERLY". CHARGE NURSE MADE AWARE OF SITUATION.
--- NOTE | 2024-12-27 23:45 | NUR ---
PAGED HOSPITALIST FOOD SAFETY MANAGER MADE DAVIS BAXTER NP AWARE PT HAS BEEN DISCHARGED TO [facility] AND IS REFUSING TO LEAVE. N/O HOLD DISCHARGE FOR TONIGHT BUT DISCHARGE EARLY TOMORROW MORNING 12/28/24.
[2024-12-28] VITALS: BP 145/78; PULSE 91; RESP 24; TEMP 97.9
[2024-12-28 04:00] VITALS: BP 134/65; PULSE 88; RESP 20; TEMP 98
--- NOTE | 2024-12-28 06:21 | NUR ---
PLACED CALL TO [facility] TO ARRANGE TRANSPORT FOR PATIENT TO GO BACK TO THEIR FACILITY, SPOKE WITH VETERINARY RECEPTIONIST (NURSES DID NOT ANSWER AT NURSES STATION), PER BURRING WHEEL OPERATOR "AL CABA" CALL BACK @ 0800 TO [phone] FOR TRANSPORTATION ARRANGEMENTS NO QUALITY ASSURANCE MONITOR CHASSIS AVAILABLE UNTIL 0800.
[2024-12-28 08:00] VITALS: BP 119/64; PULSE 80; RESP 18; TEMP 97.9
--- NOTE | 2024-12-28 08:12 | NUR ---
PLACED CALL TO [facility] TO ARRANGE TRANSPORT FOR PATIENT TO GO BACK TO THEIR FACILITY, SPOKE WITH INDUSTRIAL GREEN SYSTEMS DESIGNER 0, PER SPECIAL DEPUTY SHERIFFBeto VYAS, THERE ARE NO NURSES AVAILABLE TO TAKE REPORT THEY ARE ALL BEHIND DUE TO A MEETING. A NURSE IS TO CALL BACK TO RECEIVE REPORT. NOTIFIED SPECIAL DEPUTY SHERIFF THAT RN WOULD ATTEMPT AGAIN AROUND 0930.
--- NOTE | 2024-12-28 10:09 | PN ---
SUBJECTIVE: The patient has done quite well. She is awake, alert, tolerating a diet. She is ready to be transferred back to the [place] [facility]. LABORATORY DATA: Hemoglobin is 10. PHYSICAL EXAMINATION: GENERAL: Elderly woman. VITAL SIGNS: Blood pressure 134/65, pulse 88, respirations 20. CHEST: Clear. ABDOMEN: Soft. EXTREMITIES: Show no edema. NEUROLOGIC: Alert and oriented. IMPRESSION: * Recurrent GI bleed. * Gastric ulcer. * Multiple ____. * Metabolic encephalopathy, resolved. * Ironic deficiency anemia, ongoing. * Elevated troponin I. * Diabetes. PLAN: The patient is perfectly stable to go to the [place] [facility]. I will see her back in the clinic in a week to follow up on her myeloma and her anemia. TID: [id number] RECEIPT: [id number]
[2024-12-28 12:00] VITALS: BP 116/62; PULSE 75; RESP 18; TEMP 98.2
[2024-12-29] MEDS ORDERED: ERGOCALCIFEROL (VITAMIN D2) 50,000 UNIT CAPSULE PO SCH (09:00)
== END 2024-12-28 12:37 | DRG 377 ==
LOC: EDH 16:54 → EDHIP 19:18 → 3BH 23:00
PROVIDERS: ADMIT Hospitalist; ATTEND Hospitalist
PROC: 30233N1 Transfusion of Nonautologous Red Blood Cells into Peripheral Vein, Percutaneous Approach (ICD-10-PCS; principal; 2024-12-21)
PROC: 0DB68ZX Excision of Stomach, Via Natural or Artificial Opening Endoscopic, Diagnostic (ICD-10-PCS; 2024-12-26)
DX: K25.4 Chronic or unspecified gastric ulcer with hemorrhage (principal); G93.41 Metabolic encephalopathy; D62 Acute posthemorrhagic anemia; E86.0 Dehydration; E87.6 Hypokalemia; E11.65 Type 2 diabetes mellitus with hyperglycemia; I10 Essential (primary) hypertension; D50.9 Iron deficiency anemia, unspecified; F41.9 Anxiety disorder, unspecified; J45.909 Unspecified asthma, uncomplicated; G89.29 Other chronic pain; K44.9 Diaphragmatic hernia without obstruction or gangrene; K21.9 Gastro-esophageal reflux disease without esophagitis; Z87.440 Personal history of urinary (tract) infections; Z90.710 Acquired absence of both cervix and uterus
CPT/HCPCS: 36415; 36430; 43239; 43255; 70450; 80048; 80053; 81001; 82140; 82607; 82948; 83036; 83540; 83550; 83690; 83735; 83880; 84100; 84443; 84484; 85014; 85018; 85025; 85027; 86850; 86900; 86901; 86923; 93005; 96361; 96374; 99285; A4606; G0378; J1756; J2354; J2470; J2704; J3360; J3475; J3480; J3490; J7030; J7050; P9016; A4215; A4222; A4223; A4620

== ENCOUNTER 2025-02-24 15:56 | Inpatient (IN) | payer MEDICARE ==
[~2025-02-24] VITALS: Ht 160 cm; Wt 63.0 kg
[2025-02-24 16:30] LABS: IMMATURE GRANULOCYTE ABSOLUTE 0.01 K/uL (0-1); NUCLEATED RED BLOOD CELLS 0.0 % (0.0-0.19); PLATELET COUNT (AUTO) 304 K/uL (130-400); RED BLOOD CELL COUNT(AUTO) 3.54 MIL/uL (4.00-5.50); RED CELL DISTRIBUTION WIDTH 15.0 % (11.0-15.5); WHITE BLOOD COUNT (AUTO) 6.6 K/uL (4.8-10.8)
[2025-02-24 16:41] LABS: INR 0.96 (0.85-1.15)
[2025-02-24 16:43] LABS: ALCOHOL, BLOOD < 3 mg/dL (0-10); CREATINE KINASE, TOTAL 56 U/L (21-232); CREATININE 0.4 mg/dL (0.5-1.0); GLOMERULAR FILTR. RATE CALC 103 mL/min (>90); GLUCOSE,RANDOM 102 mg/dL (70-105); SODIUM SERUM 138 mmol/L (136-145); UREA NITROGEN, BLOOD 7 mg/dL (7-18)
--- NOTE | 2025-02-24 16:48 | NUR ---
THE PATIENT REFUSES TO HAVE AN EKG PERFORMED. PATIENT APPEARS CONFUSED AND DOES NOT UNDERSTAND THE IMPORTANCE OF EKG TESTING. ER MADE AWARE.
[2025-02-24 17:51] LABS: APPEARANCE,URINE CLOUDY (CLEAR); GLUCOSE, URINE (UA) NEGATIVE (NEGATIVE); LEUKOCYTE ESTERASE ,URINE 25 Leu/uL (NEGATIVE); NITRATE,URINE NEGATIVE (NEGATIVE); OCCULT BLOOD,URINE NEGATIVE (NEGATIVE)
[2025-02-24 17:52] LABS: ADD UA MICROSCOPIC YES
[2025-02-24 17:53] LABS: SQUAMOUS EPITHELIAL CELL,UR FEW /HPF (0-2)
[2025-02-24 17:59] LABS: AMPHET/METH SCREEN,URINE NEGATIVE (NEGATIVE); BARBITURATE SCREEN, URINE NEGATIVE (NEGATIVE); CANNABINOID SCREEN,URINE NEGATIVE (NEGATIVE); COCAINE SCREEN,URINE NEGATIVE (NEGATIVE)
--- NOTE | 2025-02-24 18:12 | ERN ---
General Chief Complaint: Other Problems Stated Complaint: AGRESSIVE BEHAVIOR Time Seen by MD: 15:57 Source: patient History of Present Illness Initial Comments PATIENT IS A 74-YEAR-OLD FEMALE BROUGHT IN BY EMS SECONDARY TO ANXIETY. PATIENT DOES HAS A HISTORY OF ANXIETY IN HIS LIVING IN HIS [facility]. PER EMS PATIENT HAS BEEN ACTING AGGRESSIVE AND WAS NOT WANTING TO TAKE HER MEDICATION. Allergies: Coded Allergies: amoxicillin (Unverified Allergy, Mild, rash, 10/14/23) neomycin (Unverified Allergy, Mild, rash, 10/14/23) thimerosal (Unverified Allergy, Mild, rash, 10/14/23) bacitracin (Unverified Allergy, Unknown, rash, 10/14/23) Uncoded Allergies: NEOSPORINS (Allergy, Mild, rash, 10/14/23) POLYSPORINS (Allergy, Mild, rash, 10/14/23) Home Meds Reported Medications Gabapentin (Gabapentin) 100 Mg Capsule, 21 CAP PO DAILY for pain for 30 Days, #90 CAP 0 Refills 12/17/24 Lactobacillus Combo No.10 (Probiotic) 20 Billion Cell Capsule, 2 TAB PO DAILY for 30 Days, #30 TAB 0 Refills 12/17/24 Multivitamin (Multi Vitamin Daily) 1 Each Tablet, 1 TAB PO DAILY for 30 Days, #30 TAB 0 Refills 12/17/24 Calcium Carbonate/Vitamin D3 (Calcium 1,000 + D3 Caplet) 1,000 Mg-20 Tablet, 1 TAB PO DAILY for 30 Days, #30 TAB 0 Refills 12/17/24 Folic Acid (Folic Acid) 480 Mcg Capsule, 480 MCG PO DAILY, CAP 12/17/24 Estradiol (Estradiol) 0.5 Mg Tablet, 1 TAB PO DAILY for 30 Days, #30 TAB 0 Refills 12/17/24 Propranolol HCl (Propranolol HCl) 20 Mg Tablet, 20 MG PO DAILY, TAB 12/17/24 Methylprednisolone (Methylprednisolone) 8 Mg Tablet, 1 TAB PO DAILY for 5 Days, #5 TAB 0 Refills 12/17/24 Lorazepam (Ativan) 0.5 Mg Tablet, 0.5 MG PO TID PRN for ANXIETY, TAB 12/17/24 Tolterodine Tartrate (Tolterodine Tartrate ER) 4 Mg Cap.er.24h, 1 CAP PO DAILY for 30 Days, #30 CAP 0 Refills 12/17/24 Cyclobenzaprine HCl (Cyclobenzaprine HCl) 10 Mg Tablet, 1 TAB PO TID for muscle spasms for 10 Days, #30 TAB 0 Refills 12/17/24 Ergocalciferol (Vitamin D2) (Vitamin D2) 1,250 Mcg (16336 Unit) Capsule, 1.25 CAP PO QWEEK for 28 Days, #4 CAP 0 Refills 12/17/24 Pravastatin Sodium (Pravastatin Sodium) 40 Mg Tablet, 1 TAB PO HS for 30 Days, #30 TAB 0 Refills 12/17/24 Sertraline HCl (Sertraline HCl) 100 Mg Tablet, 100 MG PO BID, TAB 12/17/24 Past Medical History Past Medical History: Arthritis, Asthma, Cancer, Diabetes-Type II, Fibromyalgia, UTI Medical History Other: BACKPAIN Past Surgical History: Hysterectomy, Tonsillectomy Female( History) History: Not Applicable ROS Dictation CONSTITUTIONAL: NO CHILLS, NO FEVER, NO WEAKNESS, NO DIAPHORESIS, NO MALAISE. HEAD/FACE: NO SIGNS OF TRAUMA. EENT: NO EYE PAIN, NO BLURRED VISION, NO TEARING, NO DOUBLE VISION, NO EAR PAIN, NO EAR DISCHARGE, NO NOSE PAIN, NO NASAL CONGESTION, NO THROAT PAIN, NO THROAT SWELLING, NO MOUTH PAIN. RESPIRATORY: NO COUGH, NO ORTHOPNEA, NO SOB, NO STRIDOR, NO WHEEZING. CARDIOVASCULAR: NO CHEST PAIN, NO EDEMA, NO PALPITATIONS, NO SYNCOPE. GASTROINTESTINAL/ABDOMINAL: NO ABDOMINAL PAIN, NO CONSTIPATION, NO DIARRHEA, NO NAUSEA, NO VOMITING. GENITOURINARY: NO ABNORMAL DISCHARGE, NO DYSURIA, NO FREQUENT URINATION, NO HEMATURIA. NO COMPLAINTS OF PAIN IN THE GENITALS. MUSCULOSKELETAL: NO BACK PAIN, NO GOUT, NO JOINT PAIN, NO JOINT SWELLING, NO MUSCLE PAIN, NO MUSCLE STIFFNESS, NO NECK PAIN. INTEGUMENTARY: NO CHANGE IN COLOR, NO CHANGE IN HAIR/NAILS, NO DRYNESS, NO LESION, NO LUMPS, NO RASH. NEUROLOGICAL/PSYCH: NO ANXIETY, NOT DEPRESSED, NO EMOTIONAL PROBLEM, NO HEADACHE, NO NUMBNESS, NO PRE-EXISTING DEFICIT, NO HISTORY OF SEIZURES, NO TREMORS, NO WEAKNESS. HEMATOLOGIC/LYMPHATIC: NOT ANEMIC, NO HISTORY OF BLOOD CLOTS, NO APPARENT BLEEDING, NO BRUISING, GLANDS NOT SWOLLEN. ALL SYSTEMS NEGATIVE, EXCEPT NOTED. Physical Exam Physical Exam Dictation VITAL SIGNS: REVIEWED. GENERAL APPEARANCE: ALERT, ORIENTED X3, NO ACUTE DISTRESS, OBESE. HEAD AND FACE: NON-TRAUMATIC. EYES: PERRL, PINK CONJUNCTIVAS, EYELID NO TRAUMA, ANTERIOR CHAMBER CLEAR. EARS: PINNAS INTACT AND NO SIGNS OF TRAUMA OR ERYTHEMA. EAR CANALS CLEAR AND NO DISCHARGE. TMS NO ERYTHEMA. NOSE: NO DISCHARGE, NO BLEEDING. OROPHARYNX: MOUTH NORMAL, TEETH NO CARIES, TONGUE PINK. PHARYNX CLEAR, NO KAROL THEMA. TONSILS NO EXUDATES, NO ABSCESSES NOTED. MUCOUS MEMBRANE MOIST. NECK: SUPPLE, NON-TENDER, NO THYROMEGALY, NO MASSES, NO JVD, NO BRUITS. BREAST: DEFERRED. CHEST: NO TENDERNESS, NO CREPITUS, NO PARADOXICAL MOVEMENT, NO RETRACTIONS. LUNGS: CLEAR, WELL-VENTILATED, SYMMETRIC, NO RALES, NO WHEEZING, NO RHONCHI, NO STRIDOR, GOOD BREATH SOUNDS BILATERALLY. HEART: REGULAR RATE, REGULAR RHYTHM, NO MURMUR, NO GALLOPS. VASCULAR: NO PERIPHERAL EDEMA. ABDOMEN: SOFT, POSITIVE BOWEL SOUNDS, NONDISTENDED, NO GUARDING, NONTENDER, NO REBOUND, NO MASSES NO HEPATOMEGALY, NO SPLENOMEGALY, NO ENGLE'S SIGN, NO HERNIAS. RECTAL: DEFERRED. GENITAL: DEFERRED. NEUROLOGICAL: NORMAL SPEECH, GROSS MOTOR FUNCTION INTACT, GROSS SENSORY FUNCTION INTACT. MUSCULOSKELETAL: NECK NONTENDER, FULL RANGE OF MOTION, BACK NONTENDER, FULL RANGE OF MOTION. EXTREMITIES: NONTENDER, FULL RANGE OF MOTION. SKIN: COLOR PINK, DRY, NO TURGOR, NO RASH, NO LACERATIONS, NO ABRASIONS, NO CONTUSIONS. LYMPHATICS: DEFERRED. Results Laboratory and Microbiology Lab and Micro Result Laboratory Tests Test 02/24/25 16:21 02/24/25 17:38 White Blood Count 6.6 K/uL (4.8-10.8) Red Blood Count 3.54 MIL/uL (4.00-5.50) L Hemoglobin 10.5 g/dL (12.0-16.0) L Hematocrit 32.0 % (36-48) L Mean Corpuscular Volume 90.4 fL (79-99) Mean Corpuscular Hemoglobin 29.7 pg (27.0-33.0) Mean Corpuscular Hemoglobin Concent 32.8 g/dL (32.0-36.0) Red Cell Distribution Width 15.0 % (11.0-15.5) Platelet Count 304 K/uL (130-400) Mean Platelet Volume 9.4 fL (7.5-10.5) Immature Granulocyte % (Auto) 0.2 % (0-1) Neutrophils (%) (Auto) 84.0 % (40.0-77.0) H Lymphocytes (%) (Auto) 8.0 % (21.0-51.0) L Monocytes (%) (Auto) 4.7 % (3.0-13.0) Eosinophils (%) (Auto) 2.9 % (0.0-8.0) Basophils (%) (Auto) 0.2 % (0.0-5.0) Neutrophils # (Auto) 5.6 K/uL (1.8-7.7) Lymphocytes # (Auto) 0.5 K/uL (1.0-4.8) L Monocytes # (Auto) 0.3 K/uL (0.1-1.0) Eosinophils # (Auto) 0.19 K/uL (0.00-0.70) Basophils # (Auto) 0.01 K/uL (0.00-0.20) Absolute Immature Granulocyte (auto 0.01 K/uL (0-1) Nucleated Red Blood Cells 0.0 % (0.0-0.19) White Cell Morphology Comment See comments Prothrombin Time 10.2 SEC (9.6-11.6) Prothromb Time International Ratio 0.96 (0.85-1.15) Activated Partial Thromboplast Time 24.5 SEC (26.3-35.5) L Sodium Level 138 mmol/L (136-145) Potassium Level 3.0 mmol/L (3.5-5.1) *L Chloride Level 100 mmol/L (101-111) L Carbon Dioxide Level 28 mmol/L (21-32) Blood Urea Nitrogen 7 mg/dL (7-18) Creatinine 0.4 mg/dL (0.5-1.0) L Glomerular Filtration Rate Calc 103 mL/min (>90) Random Glucose 102 mg/dL (70-105) Total Calcium 8.5 mg/dL (8.5-10.1) Magnesium Level 1.70 mg/dL (1.80-2.40) L Total Creatine Kinase 56 U/L (21-232) Troponin I High Sensitivity 5 ng/L (4-50) Serum Alcohol < 3 mg/dL (0-10) Urine Color COLORLESS (YELLOW) Urine Appearance CLOUDY (CLEAR) H Urine pH 7.0 (5.0-8.0) Urine Specific [place] 1.006 (1.001-1.031) Urine Protein NEGATIVE mg/dL (NEGATIVE) Urine Glucose (UA) NEGATIVE mg/dL (NEGATIVE) Urine Ketones NEGATIVE mg/dL (NEGATIVE) Urine Occult Blood NEGATIVE (NEGATIVE) Urine Nitrate NEGATIVE (NEGATIVE) Urine Bilirubin NEGATIVE mg/dL (NEGATIVE) Urine Urobilinogen 0.2 mg/dL (0.2-1.0) Urine Leukocyte Esterase 25 Cara/uL (NEGATIVE) H Urine RBC 2-5 /HPF (0-1) H Urine WBC 6-10 /HPF (0-1) H Urine Squamous Epithelial Cells FEW /HPF (0-2) Urine Bacteria RARE /HPF (None Seen) Urine Opiates Screen NEGATIVE (NEGATIVE) Urine Barbiturates Screen NEGATIVE (NEGATIVE) Urine Phencyclidine Screen NEGATIVE (NEGATIVE) Urine Amphetamines Screen NEGATIVE (NEGATIVE) Urine Benzodiazepines Screen NEGATIVE (NEGATIVE) Urine Cocaine Screen NEGATIVE (NEGATIVE) Urine Marijuana (THC) Screen NEGATIVE (NEGATIVE) Labs Reviewed?: Yes MDM MDM: DIFFERENTIAL DIAGNOSIS: RATIONALE: TESTS CONSIDERED AND ORDERED SECONDARY TO SHARED DECISION MAKING INCLUDE: LABS, ECG AND RADIOLOGY PREVIOUS OUTSIDE RECORDS REVIEWED: OLD ER VISITS. RISK OF COMPLICATION AND/OR MORBIDITY OR MORTALITY OF PATIENT MANAGEMENT: NONE MEDICATIONS-PER MEDICATION RECONCILIATION NEED FOR HOSPITALIZATION: PATIENT DOES MEET CRITERIA FOR HOSPITALIZATION. NEED FOR EMERGENCY MAJOR/MINOR SURGERY: NO THERE ARE NO SOCIAL CONCERNS WITH THIS PATIENT. PRESCRIPTION DRUG MANAGEMENT PRESCRIPTIONS WILL INCLUDE SYMPTOMATIC CARE PATIENT'S PRIOR EXTERNAL MEDICAL RECORDS FROM OTHER ER VISITS WERE REVIEWED BY ME INDICATED. PRIOR TESTING AND RESULTS FROM PREVIOUS VISITS WERE REVIEWED. PRIOR TESTS WERE TAKEN INTO ACCOUNT WITH MEDICAL DECISION MAKING AND RESOURCE UTILIZATION, INDEPENDENT HISTORIAN/HISTORIANS WERE USED TO OBTAIN COMPLETE MEDICAL HISTORY. I INDEPENDENTLY INTERPRETED THE TEST THAT WERE PERFORMED, RESULTS WERE REVIEWED BY ME AND CONSIDERED FINDINGS ON RADIOLOGY IF ORDERED. MEDICAL MANAGEMENT AND EXAMINATION INTERPRETATION DISCUSSIONS WERE HAD BY ME WITH OTHER QUALIFIED HEALTHCARE PROFESSIONALS INDICATED FOR THE PATIENT'S CARE. ED Course Orders Procedure Category Date Status Time Cbc With Differential LAB 02/24/25 Complete 16:03 Prothrombin Time With LAB 02/24/25 Complete INR 16:03 Chest 1vw RAD 02/24/25 Logged 16:03 12 Lead Ekg Tracing- EKG 02/24/25 Logged Technical 16:03 Magnesium LAB 02/24/25 Complete 16:03 Creatine Kinase, Total LAB 02/24/25 Complete 16:03 Troponin I High LAB 02/24/25 Complete Sensitivity 16:03 Urinalysis Profile LAB 02/24/25 Complete 16:03 Partial LAB 02/24/25 Complete Thromboplastin Time 16:03 Basic Metabolic Panel LAB 02/24/25 Complete 16:03 Drug Screen Urine LAB 02/24/25 Complete 16:03 Alcohol, Blood LAB 02/24/25 Complete 16:03 Nurse Driven Mcnair HERON 02/24/25 In Process Removal Pro 17:26 Culture Urine MARVIN 02/24/25 In Process 17:55 Potassium Bicarb/Cit PHA 02/24/25 Complete Ac 25meq (K-Lyte Ta 18:00 Magnesium 2gm Premix PHA 02/24/25 In Process 50ml (Magnesium 2gm 18:30 Levofloxacin 500 PHA 02/24/25 In Process Mg/D5w 100 Ml 19:00 Current Medications Medications (Trade) Dose Ordered Sig/Leighton Route PRN Reason Start Time Stop Time Status Last Admin Dose Admin Levofloxacin/ Dextrose 100 ml @ 100 mls/hr Q24H IV 02/24/25 19:00 03/06/25 18:59 Magnesium Sulfate 50 ml @ 0 mls/hr PROTOCOL IV 02/24/25 18:30 03/26/25 18:29 02/24/25 18:29 Potassium Bicarbonate (K-Lyte Tablet Eff 25 Meq Tablet.eff) 50 meq ONCE ONCE PO 02/24/25 18:00 02/24/25 18:01 DC Vital Signs Date Time Temp Pulse Resp B/P (MAP) Pulse Ox O2 Delivery O2 Flow Rate FiO2 02/24/25 17:44 97.9 83 22 134/55 92 Room Air* 0 21 02/24/25 16:23 97.9 83 22 128/47 96 Room Air* 0 02/24/25 15:59 97.9 80 16 119/70 96 Room Air DX & DISP Disposition: Inpatient Departure Impression: Primary Impression: Hypokalemia Additional Impressions: Dehydration, UTI (urinary tract infection) Condition: Stable Referrals: TAMMIE MCLAUGHLIN MD (PCP) JESSICA LARIOS MD Feb 24, 2025 18:12 IRENE PYLE MD Feb 24, 2025 19:36
[2025-02-24] MEDS: MAGNESIUM 2GM PREMIX 50ML 50 ML IV SCH (18:29)
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
[2025-02-24] MEDS ORDERED: MAGNESIUM 2GM PREMIX 50ML 50 ML IV PRN (20:30)
[2025-02-24] MEDS ORDERED: PoTASSium chl 10% ELIXIR 20MEQ 20 MEQ/15 ML UDCUP PO PRN (20:30)
--- NOTE | 2025-02-24 21:04 | HMCIMG ---
EXAM: CT Head Without IV contrast. CLINICAL HISTORY: Altered mental status TECHNIQUE: Axial computed tomography images of the head/brain without intravenous contrast. COMPARISON: None provided. FINDINGS: BRAIN: No evidence of acute hemorrhage. No mass lesion. No CT evidence for acute territorial infarct. No midline shift or extra-axial collections. Atrophy VENTRICLES: No hydrocephalus. ORBITS: The orbits are unremarkable. SINUSES AND MASTOIDS: Opacified left maxillary sinus BONES: No fracture. SOFT TISSUES: Unremarkable. IMPRESSION: Motion degraded exam. No acute intracranial abnormality. Short interval follow-up when patient is clinically able recommended /Mouthcard
[2025-02-24] MEDS: 0.9%NACL 1000ML 1,000 ML IV SCH (21:31)
[2025-02-24] MEDS ORDERED: DEXTROSE 50%-WATER 50 ML DISP.SYRIN IV PRN (22:30)
[2025-02-24] MEDS ORDERED: GLUCAGON 1MG KIT 1 MG ML IM PRN (22:30)
[2025-02-25] MEDS: HALOPERIDOL INJ 5 MG/ML VIAL IM PRN (01:49)
--- NOTE | 2025-02-25 01:58 | NUR ---
PT ARRIVED FROM ER. NOT ALLOWING BASIC CARE WITHOUT APPEARING FEARFUL AND REPEATING HERSELF BY SAYING NO. REFUSING WATER, VITAL SIGNS CHECK, PLACEMENT OF TELE, PLACEMENT OF GOWN OR BASIC ASSESSMENT. DAVIS MENDOZA CALLED, NEW ORDERS GIVEN AND CARRIED OUT. TELE INFORMED PT WILL BE OFF TELE UNTIL ABLE TO PLACE ON. PT NOT ANSWERING ANY QUESTIONS WHEN ASKED. F/C IN DRAINING YELLOW URINE, STAT LOCK IN PLACE.
--- NOTE | 2025-02-25 03:25 | NUR ---
PT ALLOWED VS TO BE TAKEN THEY ARE STABLE. STILL WARY OF STAFF, STILL REFUSING TO HAVE TELE PLACED ON OR GOWN PUT ON.
[2025-02-25 04:00] VITALS: BP 132/68; PULSE 75; RESP 20; TEMP 97.4
--- NOTE | 2025-02-25 04:09 | NUR ---
LABS REFUSED AM LABS AND TELE PLACEMENT
[2025-02-25] MEDS ORDERED: SUCR1TAB2 PO (06:08)
[2025-02-25] MEDS ORDERED: ATOR10TA69 PO (06:08)
[2025-02-25] MEDS ORDERED: GABA-529 PO (06:08)
--- NOTE | 2025-02-25 06:46 | NUR ---
LABS/TELE/GLUCOSE CHECK PT AGAIN REFUSING BASIC CARE, STATING LABS CAN BE DONE LATER BUT TELE AND BS CHECK SHE IS REFUSING. NO S/S OF DISTRESS NOTED.
[2025-02-25] MEDS: PROPRANOLOL HCL 20 MG TAB PO SCH (09:00)
[2025-02-25] MEDS: FAMOTIDINE 20MG VIAL IV SCH (09:05)
[2025-02-25 10:28] LABS: ASPARTATE AMINOTRANSFERASE 22.0 U/L (10-37); CREATININE 0.5 mg/dL (0.5-1.0); GLOMERULAR FILTR. RATE CALC 98.0 mL/min (>90); GLUCOSE,RANDOM 105.0 mg/dL (70-105); SODIUM SERUM 136.0 mmol/L (136-145); TOTAL PROTEIN, SERUM 7.2 g/dL (6.0-8.3); UREA NITROGEN, BLOOD 7.0 mg/dL (7-18)
--- NOTE | 2025-02-25 10:30 | NUR ---
PT VERY ANXIOUS AND UNTRUSTING OF OTHERS. Addendum: 02/25/25 at 1300 by SHARAD MONTAÑO PT Amended: Links added.
--- NOTE | 2025-02-25 10:52 | NUR ---
[facility] met with pt and her caregiver Elisabeth Queen [phone]. Per Elisabeth, pt now resides at [facility] for the last 2 weeks. Elisabeth continues to assist pt as needed, with errands, transport to MD appts. [facility] staff assists with ADLS, pt has w/c and walker she uses a facility, no hh or hd. PCP is Gus Pineda. Pt to return to [facility] at id. MILLICENT HUMPHREY [phone] Addendum: 02/25/25 at 1104 by DORIS HU Amended: Links added.
[2025-02-25] MEDS: PoTASSium chloRIDE 20MEQ ER 20 MEQ ERTAB PO PRN (10:59)
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
[2025-02-25 12:00] VITALS: BP_SYST 132; BP_SYST 134; BP_DIAS 70; BP_DIAS 74; PULSE 76; PULSE 79; RESP 18; TEMP 98.4; TEMP 98.6
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
[2025-02-25 16:00] VITALS: BP 132/70; PULSE 76; RESP 18; TEMP 98.6
[2025-02-25 16:04] LABS: IMMATURE GRANULOCYTE ABSOLUTE 0.02 K/uL (0-1); NUCLEATED RED BLOOD CELLS 0.0 % (0.0-0.19); PLATELET COUNT (AUTO) 336 K/uL (130-400); RED BLOOD CELL COUNT(AUTO) 3.72 MIL/uL (4.00-5.50); RED CELL DISTRIBUTION WIDTH 14.8 % (11.0-15.5); WHITE BLOOD COUNT (AUTO) 5.7 K/uL (4.8-10.8)
[2025-02-25 20:00] VITALS: BP 140/56; PULSE 85; RESP 18; TEMP 98.1; O2SAT 95
[2025-02-26] VITALS (7 sets, daily range): BP systolic 131–145; BP diastolic 57–76; PULSE 74–86; RESP 17–18; TEMP 97.6–98.1; O2SAT 98–99
[2025-02-26 03:39] LABS: CREATININE 0.4 mg/dL (0.5-1.0); GLOMERULAR FILTR. RATE CALC 103.0 mL/min (>90); GLUCOSE,RANDOM 92.0 mg/dL (70-105); SODIUM SERUM 136.0 mmol/L (136-145); UREA NITROGEN, BLOOD 3.0 mg/dL (7-18)
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
--- NOTE | 2025-02-26 16:51 | NUR ---
DC PLAN FROM TELE PSYCH SAID CONFUSION IS DELIRIUM AND COULD BE MEDICATION OR UTI. UCX IN PROCESS. PATIENT IMPROVING MENTATION TO MORE NORMAL BASELINE. CM WILL CONTINUE TO FOLLOW.
[2025-02-27] VITALS: BP 148/79; PULSE 78; RESP 18; TEMP 98.1
[2025-02-27 04:00] VITALS: BP 118/76; PULSE 84; RESP 18; TEMP 98.1
[2025-02-27 05:18] LABS: CREATININE 0.4 mg/dL (0.5-1.0); GLOMERULAR FILTR. RATE CALC 103.0 mL/min (>90); GLUCOSE,RANDOM 93.0 mg/dL (70-105); SODIUM SERUM 136.0 mmol/L (136-145); UREA NITROGEN, BLOOD 7.0 mg/dL (7-18)
[2025-02-27 08:00] VITALS: BP 123/65; PULSE 78; RESP 15; TEMP 97.5
[2025-02-27 09:26] VITALS: O2SAT 96
[2025-02-27 12:00] VITALS: BP 125/58; PULSE 76; RESP 18; TEMP 98
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
--- NOTE | 2025-02-27 13:44 | NUR ---
Refusing PT PT has been in 3 times today to attempt and get her to participate and walk with physical therapy. patient has refused each time with long elaborate reasons that don't hold credibility. She walked yesterday with PT and with nursing to the restroom. per nursing it was not steady or safe. Pt would benefit from continued skilled PT if she is willing to participate. Will attempt again tomorrow Addendum: 02/27/25 at 1347 by SARAH MUJICA PTA PT Amended: Links added.
[2025-02-27] MEDS ORDERED: LORA0.5T83 PO (14:34)
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
[2025-02-27 16:00] VITALS: BP 130/60; PULSE 81; RESP 18; TEMP 98.5
--- NOTE | 2025-02-27 17:01 | NUR ---
[facility] VAN GONE FOR THE DAY.
[2025-02-28] VITALS (7 sets, daily range): BP systolic 118–143; BP diastolic 48–86; PULSE 75–86; RESP 16–18; TEMP 97.5–98.2; O2SAT 95
--- NOTE | 2025-02-28 02:00 | NUR ---
void assisted to bathroom via wheel chair, voided without discomfort back to bed
--- NOTE | 2025-02-28 08:00 | NUR ---
BEHAVIORS Patient refusing vital signs. Verbally angry with ELECT[employer]IC[employer]ATION SUPERVISOR. Talking with flights of idea. Patient will begin speaking about one thing, and then suddenly begin speaking about something completely different. Bed alarm is in place. Patient is directly in front of nurses's station. Nursing is performing frequent monitoring. Addendum: 02/28/25 at 1121 by MIKALA BEAN RN RN Amended: Links added.
--- NOTE | 2025-02-28 15:10 | NUR ---
SECOND ATTEMPT TO CALL REPORT TO [facility] Call gets transferred to voicemail. Will call back in 15-30 minutes.
--- NOTE | 2025-02-28 15:31 | NUR ---
DISCHARGE CANCELLED, INFECTIOUS DISEASE CONSULT Physicians at bedside. Explained to patient that she would not be discharged today. Will require IV antibiotic, Merrem. Dr. Aguirre notified of new consult.
--- NOTE | 2025-02-28 15:53 | NUR ---
DC PLAN CM SPOKE TO RESIDENT SAID URINE FINAL CAME BACK AND ESBL WITH MANY RESISTANCES. SAID WILL NEED IV ABX. CM SPOKE TO PATIENT TO GET RELEASE OF INFORMATION. PATIENT VERY UPSET DID NOT WANT TO SIGN WANTS TO KNOW HOW LONG SHE NEEDS ABX. EXPLAINED IT WOULD PROBABLY BE AT LEAST 7 DAYS. SPOKE TO HER ABOUT THE DIFFERENT FACILITIES. SAID DOES NOT WANT [facility] SAID DID NOT LIKE IT THERE. TOLD HER THERE WERE OTHER PLACES AND WENT OVER THE OTHER SNF. SAID DOES NOT REALLY WANTS TO GO ANYPLACE SHE WANTS TO GO HOME EXPLAINED THAT PO WILL NOT WORK AND [facility] DOES NOT DO IV ABX. SAID WILL THINK ABOUT IT.
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
[2025-02-28 18:21] LABS: INR 0.99 (0.85-1.15)
[2025-03-01 03:34] VITALS: BP 142/76; PULSE 86; RESP 16; TEMP 98
[2025-03-01 07:40] VITALS: BP 132/79; PULSE 92; RESP 17; TEMP 98.4
[2025-03-01 08:21] LABS: IMMATURE GRANULOCYTE ABSOLUTE 0.04 K/uL (0-1); NUCLEATED RED BLOOD CELLS 0.0 % (0.0-0.19); PLATELET COUNT (AUTO) 462 K/uL (130-400); RED BLOOD CELL COUNT(AUTO) 4.28 MIL/uL (4.00-5.50); RED CELL DISTRIBUTION WIDTH 15.3 % (11.0-15.5); WHITE BLOOD COUNT (AUTO) 7.0 K/uL (4.8-10.8)
[2025-03-01 08:32] LABS: CREATININE 0.5 mg/dL (0.5-1.0); GLOMERULAR FILTR. RATE CALC 98.0 mL/min (>90); GLUCOSE,RANDOM 126.0 mg/dL (70-105); SODIUM SERUM 137.0 mmol/L (136-145); UREA NITROGEN, BLOOD 7.0 mg/dL (7-18)
[2025-03-01] MEDS ORDERED: PHARMACY COMMUNICATION MISC SCH (11:00)
[2025-03-01] MEDS: MEROPENEM 1GM 1 GM VIAL IVPB SCH (11:08)
[2025-03-01 11:36] VITALS: BP 126/61; PULSE 74; RESP 17; TEMP 98.1
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
[2025-03-01 12:23] VITALS: O2SAT 98
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
[2025-03-01 16:24] VITALS: BP 111/66; PULSE 86; RESP 17; TEMP 98.1
--- NOTE | 2025-03-01 17:34 | EKG ---
[facility] Test Date: 2025-03-01 Test Time: 17:00:54 Pat Name: DERRICK MCMANUS Department: [facility] Room: 419 1 Gender: F Tip Cutter: AMARA : 1950 Requested By: BOZENA CONDE Order Number: [id number] Reading MD: Emelyn Caba Measurements Intervals [place] Rate: 82 P: 48 NH: 146 QRS: -7 QRSD: 86 T: 7 QT: 380 QTc: 443 Interpretive Statements Normal sinus rhythm Minimal voltage criteria for LVH, may be normal variant Compared to ECG 03/01/2025 16:58:45 T-wave abnormality no longer present Electronically Signed On 03-01-2025 20:29:46 GREY STOCK RECORDER by Emelyn Caba Please click the below link to view image of tracing.
[2025-03-01 20:00] VITALS: PULSE 74
[2025-03-02] VITALS: BP 142/61; PULSE 82; RESP 18; TEMP 97.9
[2025-03-02 04:00] VITALS: BP 146/66; PULSE 76; RESP 16; TEMP 98.6
[2025-03-02 07:45] VITALS: O2SAT 98
[2025-03-02 08:00] VITALS: BP 146/78; PULSE 64; RESP 17; TEMP 98.4
[2025-03-02 10:30] LABS: NUCLEATED RED BLOOD CELLS 0.0 % (0.0-0.19); PLATELET COUNT (AUTO) 378.0 K/uL (130-400); RED BLOOD CELL COUNT(AUTO) 3.86 MIL/uL (4.00-5.50); RED CELL DISTRIBUTION WIDTH 15.3 % (11.0-15.5); WHITE BLOOD COUNT (AUTO) 4.3 K/uL (4.8-10.8)
[2025-03-02] MEDS: MAGNESIUM OXIDE 400 MG TABLET PO ONE (10:34)
[2025-03-02 10:53] LABS: ASPARTATE AMINOTRANSFERASE 16.0 U/L (10-37); CREATININE 0.5 mg/dL (0.5-1.0); GLOMERULAR FILTR. RATE CALC 98.0 mL/min (>90); GLUCOSE,RANDOM 106.0 mg/dL (70-105); SODIUM SERUM 137.0 mmol/L (136-145); TOTAL PROTEIN, SERUM 6.8 g/dL (6.0-8.3); UREA NITROGEN, BLOOD 7.0 mg/dL (7-18)
[2025-03-02 12:07] VITALS: BP 119/58; PULSE 77; RESP 17; TEMP 98
--- NOTE | 2025-03-02 13:43 | NUR ---
DISCHARGE EDUCATION GIVEN TO PATIENT REGARDING INSTRUCTIONS. SARAH CADENA GAVE LYLY CASTAÑEDA REPORT REGARDING PT. PT WILL BE TRANSFERRING WITH [facility] PER . FLUSHED AND INTACT. PT PENDING VAN TRANSPORTATION. Addendum: 03/02/25 at 1453 by PRERNA ALLENN PATIENT TAKEN TO FACILITY BY LU. NO FURTHER COMMENTS.
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
--- NOTE | 2025-03-02 18:35 | PN ---
INFECTIOUS DISEASE PROGRESS NOTE Date of Service: Mar 02, 2025 SUBJECTIVE: This is a 74-year-old female patient who is pending approval to [facility]. Currently continues on Meropenem V every 8 hours. PHYSICAL EXAM EYES: Anicteric. Pupils equal and reactive. HENT: No oral thrush seen, moist Oral mucosa. NECK: Supple, no JVD or thyromegaly. LUNGS: Good air entry. No rales, no rhonchi. CARDIOVASCULAR: S1, S2 regular. No murmur heard. ABDOMEN: Soft, non tender, bowel sounds present, no organomegaly CENTRAL NERVOUS SYSTEM: Awake, alert, oriented x 2-3, with intermediate forgetfulness. SKIN: No rashes, no swelling. LYMPHATICS: No peripheral lymphadenopathy. MUSCULOSKELETAL: No joint swelling, erythema or tenderness. EXTREMITIES: No cyanosis or clubbing. BACK: No deformity, no pressure ulcer. GENITOURINARY: No dysuria or hematuria. Vital Sign (Last 12 Hours) 03/02/25 03/02/25 03/02/25 07:45 08:00 12:07 Temp 98.4 98.1 Pulse 64 77 Resp 17 17 B/P (MAP) 146/78 119/58 Pulse Ox 98 98 98 O2 Delivery Room Air* Room Air Room Air O2 Flow Rate 0 FiO2 21 Intake & Output (last 24hrs) 03/01/25 03/01/25 03/02/25 15:00 23:00 07:00 Intake Total 970 ml 800.0 ml Balance 970 ml 800.0 ml LABS: Laboratory: Test 03/02/25 08:42 03/02/25 06:08 03/01/25 07:57 Range/Units White Blood Count 4.3 L 4.8-10.8 K/uL Red Blood Count 3.86 L 4.00-5.50 MIL/uL Hemoglobin 11.5 L 12.0-16.0 g/dL Hematocrit 34.6 L 36-48 % Mean Corpuscular Volume 89.6 79-99 fL Mean Corpuscular Hemoglobin 29.8 27.0-33.0 pg Mean Corpuscular Hemoglobin Concent 33.2 32.0-36.0 g/dL Red Cell Distribution Width 15.3 11.0-15.5 % Platelet Count 378 130-400 K/uL Mean Platelet Volume 9.2 7.5-10.5 fL Nucleated Red Blood Cells 0.0 0.0-0.19 % Sodium Level 137 136-145 mmol/L Potassium Level 3.5 3.5-5.1 mmol/L Chloride Level 104 101-111 mmol/L Carbon Dioxide Level 23 21-32 mmol/L Blood Urea Nitrogen 7 7-18 mg/dL Creatinine 0.5 0.5-1.0 mg/dL Glomerular Filtration Rate Calc 98 >90 mL/min Random Glucose 106 H 70-105 mg/dL Total Calcium 8.3 L 8.5-10.1 mg/dL Magnesium Level 1.50 L 1.80-2.40 mg/dL Total Bilirubin 0.3 0.2-1.0 mg/dL Aspartate Amino Transf (AST/SGOT) 16 10-37 U/L Alanine Aminotransferase (ALT/SGPT) 18 12-78 U/L Alkaline Phosphatase 98 50-136 U/L Total Protein 6.8 6.0-8.3 g/dL Albumin 2.6 L 3.5-5.0 g/dL Whole Blood Glucose 107 70-110 MG/DL Immature Granulocyte % (Auto) 0.6 0-1 % Neutrophils (%) (Auto) 72.8 40.0-77.0 % Lymphocytes (%) (Auto) 9.1 L 21.0-51.0 % Monocytes (%) (Auto) 8.4 3.0-13.0 % Eosinophils (%) (Auto) 8.8 H 0.0-8.0 % Basophils (%) (Auto) 0.3 0.0-5.0 % Neutrophils # (Auto) 5.1 1.8-7.7 K/uL Lymphocytes # (Auto) 0.6 L 1.0-4.8 K/uL Monocytes # (Auto) 0.6 0.1-1.0 K/uL Eosinophils # (Auto) 0.62 0.00-0.70 K/uL Basophils # (Auto) 0.02 0.00-0.20 K/uL Absolute Immature Granulocyte (auto 0.04 0-1 K/uL ASSESSMENT: UTI with ESBL, Klebsiella pneumoniae. Infection multidrug resistant organism. Diabetes mellitus. History of falls. Anemia. Anxiety. PLAN: Continue meropenem. Continue GI prophylaxis. Continue fall precaution Continue diabetic medication Pending SNF placement. This case was reviewed and discussed with my supervising physician Dr. Taylor and the above assessment and plan was formulated and agreed upon. ATTESTATION BY PHYSICIAN I have seen and examined the patient. I reviewed the documentation, medical decision making, and treatment plan as noted by the mid-level provider above. I agree with the findings and plan of care. DIONY TAYLOR MD, MIRTA L [facility] Mar 02, 2025 18:35
== END 2025-03-02 14:56 | DRG 689 ==
LOC: EDH 15:56 → EDHIP 20:26 → 4CH 02-25 00:57
PROVIDERS: ADMIT Hospitalist; ATTEND Hospitalist
PROC: 05HY33Z Insertion of Infusion Device into Upper Vein, Percutaneous Approach (ICD-10-PCS; principal; 2025-02-28)
DX: N39.0 Urinary tract infection, site not specified (principal); G93.41 Metabolic encephalopathy; R62.7 Adult failure to thrive; B96.1 Klebsiella pneumoniae [K. pneumoniae] as the cause of diseases classified elsewhere; E11.9 Type 2 diabetes mellitus without complications; D64.9 Anemia, unspecified; I10 Essential (primary) hypertension; J45.909 Unspecified asthma, uncomplicated; Z16.12 Extended spectrum beta lactamase (ESBL) resistance; Z16.24 Resistance to multiple antibiotics; E78.5 Hyperlipidemia, unspecified; E86.0 Dehydration; F41.9 Anxiety disorder, unspecified; M79.7 Fibromyalgia; E83.42 Hypomagnesemia; Z53.20 Procedure and treatment not carried out because of patient's decision for unspecified reasons; G89.29 Other chronic pain; E87.6 Hypokalemia; Z90.710 Acquired absence of both cervix and uterus; Z91.81 History of falling; Z68.24 Body mass index [BMI] 24.0-24.9, adult
CPT/HCPCS: 36415; 36556; 70450; 80048; 80053; 80305; 81001; 82140; 82550; 82948; 83735; 84484; 85025; 85027; 85610; 85730; 87086; 87186; 93005; 96374; 97161; 99285; C1894; G0378; J0696; J1630; J1956; J2185; J3475; J3480; C1750; J1308